=== PATIENT | female | born 2000 | race American Indian/Alaskan Native ===

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

== ENCOUNTER 2022-06-11 08:08 | Emergency (ER) | payer MEDICAID, SELFPAY ==
[2022-06-11 08:43] VITALS: BP 118/88; PULSE 103; RESP 18; TEMP 36.3; O2SAT 95; BMI 24.5
--- NOTE | 2022-06-11 09:07 | ED_ITS ---
HPI - Abdominal Pain General Chief Complaint: Abdominal Pain Stated Complaint: Vomiting/Gastritis Time Seen by Provider: 06/11/22 09:02 Source: patient and family Mode of arrival: ambulatory Limitations: no limitations History of Present Illness HPI narrative: 21-year-old female with a history of intermittent abdominal pain for many months presents to the ER with 2 days of upper abdominal pain and vomiting. No diarrhea, fevers, constipation, urinary symptoms. Last BM was yesterday. Patient reports she has been previously diagnosed with gastritis. Has taken a PPI and Carafate for brief time but then her symptoms improve so she stopped taking the medication. Related Data Previous Rx's Medication Instructions Recorded ondansetron HCl 4 mg tablet 4 mg PO Q8H PRN nausea and 10/31/20 (Zofran) vomiting #14 tabs omeprazole 40 mg capsule,delayed 40 mg PO DAILY #14 caps 04/18/21 release sucralfate 1 gram tablet 1 g PO TID #20 tabs 04/18/21 omeprazole 40 mg capsule,delayed 40 mg PO DAILY #30 caps 09/07/21 release sucralfate 1 gram tablet 1 g PO TID #90 tabs 09/07/21 omeprazole 40 mg capsule,delayed 40 mg PO DAILY #30 caps 06/11/22 release sucralfate 1 gram tablet (Carafate) 1 g PO AC #90 tabs 06/11/22 Allergies Allergy/AdvReac Type Severity Reaction Status Date / Time No Known Allergies Allergy Unverified 01/15/20 19:26 [No Known Allergies*] Review of Systems Review of Systems Yes all other systems are reviewed and are negative Constitutional: Reports no additional constitutional complaints, Denies body ache(s), Denies chills, Denies fever(s), Denies headache(s) and Denies weakness Eyes: Reports no additional eye complaints and Denies change in vision Reports system reviewed and no additional complaints, except as documented, Denies dizziness, Denies headache(s), Denies nasal congestion, Denies nasal discharge and Denies neck pain Cardiovascular: Reports no additional cardiovascular complaints, Denies chest pain, Denies leg edema and Denies dyspnea Respiratory: Reports no additional respiratory complaints, Denies cough and Denies dyspnea Gastrointestinal: Reports no additional gastrointestinal complaints, Reports abdominal pain, Denies diarrhea, Reports nausea and Reports vomiting Genitourinary: Reports no additional female genitourinary complaints and Denies urinary incontinence Musculoskeletal: Reports no additional musculoskeletal complaints, Denies back pain, Denies arthralgias, Denies joint swelling, Denies neck pain, Denies numbness and Denies tingling Skin/Breast: Reports system reviewed and no additional complaints, except as docu and Denies rash Reports system reviewed and no additional complaints, except as documented, Denies dizziness, Denies headache(s), Denies numbness, Denies tingling and Denies weakness PMFSH Past Medical History Attestation statement: The following information was validated with the patient. Source: old records reviewed and nursing notes reviewed Medical History No known health problems Social History Social History Alcohol intake: never Patient Tobacco Use Status: Tobacco use Unknown Smoked in Last 30 Days: No Use of substances other than those prescribed or required for medical reasons: Yes Substance Use Type: Marijuana Advance Directives: No Advance Directives Information Provided: No Physical Exam ED Vital Signs: Vital Signs - 24 hr 06/11/22 08:43 06/11/22 10:30 06/11/22 11:33 Temperature 97.4 F 97.5 F 98.0 F Pulse Rate 103 H 77 86 Respiratory Rate 18 14 16 Blood Pressure 118/88 108/47 L 115/76 Pulse Oximetry 95 100 Oxygen Delivery Method Room Air Room Air Room Air BMI result Body Mass Index 24.5 Const Other: in pain General: alert Orientation/consciousness: patient oriented x3 Limitations: no limitations [facility] Head: Yes normal to inspection Ears: hearing grossly normal bilaterally Eyes General: appearance normal, both eyes and all related structures Pupils: Equal, round and reactive pupils present Neck Neck: Yes normal visual inspection and Yes full ROM Chest Chest palpation & inspection: normal inspection of the chest Resp Effort & Inspection: normal respiratory effort Auscultation: clear to auscultation bilaterally GI Inspection: Yes normal to inspection Palpation (GI): Soft to palpation and Tenderness to palpation present (GI) in the epigastrum Auscultation: normal bowel sounds General: Yes no CVA tenderness Back/Spine/Pelvis Back: no CVA tenderness Thoracic/Lumbar Spine: thoracic and lumbar spine normal to inspection Skin General skin exam: no rashes or lesions noted Neuro General: patient oriented x3 and moves all extremities Cranial nerves: Yes Equal, round and reactive pupils present Cognition (Neuro): normal cognition Gait exam (Neuro): Normal gait present Extrem General: Yes normal to inspection Course Course Course Narrative: labs and UA are unremarkable. Patient is no longer vomiting and is tolerating sips of water. Has mild discomfort still in the epigastric area. Will give GI cocktail and reassess Reevaluation(s) Reevaluation #1: 1200- patient feeling improved. Tolerating p.o.. Likely gastritis consider PUD. Patient should follow-up with a tie tape machine operator. Recommended restarting carafate and PPI. Reviewed worrisome signs and symptoms of when to return to the emergency room. Comfortable plan for discharge home. Medical Decision Making Medical Decision Making [facility] Narrative: 21-year-old female here with intermittent upper abdominal pain for many months worsened over the last 2 days with vomiting. On exam patient with epigastric tenderness with no rebound or guarding. Patient is vomiting. Patient with previous diagnosis of gastritis but no longer taking her Carafate and PPI will obtain labs, UA, give IV fluids, analgesia, antiemetic Differential Diagnosis Differential Diagnoses: The differential diagnosis associated with the presentation includes gastritis, gastric ulcer, low concern for appendicitis Lab Data [facility] Lab Attestation statement: I reviewed the patient's lab results. 06/11/22 09:22 06/11/22 09:22 Labs: Lab Results 06/11/22 06/11/22 06/11/22 Range/Units 09:17 09:17 09:22 WBC 9.2 (4.8-10.8) X10*3/uL RBC 5.15 (4.20-5.50) X10*6/uL Hgb 14.2 (12.0-16.0) g/dl Hct 41.3 (37.0-47.0) % MCV 80.2 (80.0-98.0) fL MCH 27.6 (27.0-33.0) pg MCHC 34.4 (31.0-35.0) g/dl RDW 13.0 (11.0-16.0) % Plt Count 262 (160-400) X10*3/uL MPV 11.4 (9.4-12.3) fL Immature Gran % (Auto) Cancelled Neut % (Auto) Cancelled Lymph % (Auto) Cancelled [place] % (Auto) Cancelled Eos % (Auto) Cancelled Baso % (Auto) Cancelled Lymph # (Auto) Cancelled [place] # (Auto) Cancelled Eos # (Auto) Cancelled Baso # (Auto) Cancelled Abs Immat Gran (auto) Cancelled Absolute Neuts (auto) Cancelled Absolute Nucleated RBC 0.000 (0.0-0.012) X10*3/uL Nucleated RBC % (auto) 0.0 (0.0-0.2) /100WBC Neutrophils % (Manual) 60 (45-73) % Band Neutrophils % 0 L (3-5) % Lymphocytes % (Manual) 28 (20-40) % Monocytes % (Manual) 12 H (2-11) % Abs Neuts (Manual) 5.5 (2.0-8.3) X10*3/uL Lymphocytes # (Manual) 2.6 (1.2-4.9) X10*3/uL Monocytes # (Manual) 1.1 (0.1-1.2) X10*3/uL Platelet Estimate NORMAL (NORMAL) Plt Morphology Comment NORMAL RBC Morphology NORMAL Sodium (135-145) mmol/L Potassium (3.3-5.1) mmol/L Chloride (96-108) mmol/L Carbon Dioxide (22-29) mmol/L Anion Gap (12-20) BUN (9-16) mg/dL Creatinine (0.5-1.4) mg/dL Estim Creat Clear Calc Estimated GFR Random Glucose (60-115) mg/dL Calcium (8.4-10.2) mg/dL Total Bilirubin (0.0-1.0) mg/dL Direct Bilirubin (0.0-0.5) mg/dL AST (5-31) U/L ALT (0-31) U/L Alkaline Phosphatase (39-117) U/L Total Protein (6.5-8.0) g/dL Albumin (3.5-5.0) g/dL Lipase (8-78) U/L Urine Color Dark Yellow Urine Appearance Cloudy Urine pH 5.5 (5.0-9.0) Ur Specific [place] >= 1.030 H (1.005-1.025) Urine Protein 30 (1+) H (Neg-Trace) mg/dL Urine Glucose (UA) Negative (Negative) mg/dL Urine Ketones Trace (Negative) mg/dL Urine Blood Negative (Negative) Urine Nitrite Negative (Negative) Ur Leukocyte Esterase Trace H (Negative) Urine RBC 0-2 (0-2) /HPF Urine WBC 0-5 (0-5) /HPF Ur Squamous Epith Cells 11-20 (0-2) /HPF Urine Bacteria 3+ (None Seen) Hyaline Casts 3-5 (0-2) /LPF Urine Test NEGATIVE (NEGATIVE) 06/11/22 Range/Units 09:22 WBC (4.8-10.8) X10*3/uL RBC (4.20-5.50) X10*6/uL Hgb (12.0-16.0) g/dl Hct (37.0-47.0) % MCV (80.0-98.0) fL MCH (27.0-33.0) pg MCHC (31.0-35.0) g/dl RDW (11.0-16.0) % Plt Count (160-400) X10*3/uL MPV (9.4-12.3) fL Immature Gran % (Auto) Neut % (Auto) Lymph % (Auto) [place] % (Auto) Eos % (Auto) Baso % (Auto) Lymph # (Auto) [place] # (Auto) Eos # (Auto) Baso # (Auto) Abs Immat Gran (auto) Absolute Neuts (auto) Absolute Nucleated RBC (0.0-0.012) X10*3/uL Nucleated RBC % (auto) (0.0-0.2) /100WBC Neutrophils % (Manual) (45-73) % Band Neutrophils % (3-5) % Lymphocytes % (Manual) (20-40) % Monocytes % (Manual) (2-11) % Abs Neuts (Manual) (2.0-8.3) X10*3/uL Lymphocytes # (Manual) (1.2-4.9) X10*3/uL Monocytes # (Manual) (0.1-1.2) X10*3/uL Platelet Estimate (NORMAL) Plt Morphology Comment RBC Morphology Sodium 138 (135-145) mmol/L Potassium 3.7 (3.3-5.1) mmol/L Chloride 106 (96-108) mmol/L Carbon Dioxide 21 L (22-29) mmol/L Anion Gap 15 (12-20) BUN 9 (9-16) mg/dL Creatinine 0.70 (0.5-1.4) mg/dL Estim Creat Clear Calc 106.6 Estimated GFR > 60 Random Glucose 112 (60-115) mg/dL Calcium 9.5 (8.4-10.2) mg/dL Total Bilirubin 1.4 H (0.0-1.0) mg/dL Direct Bilirubin 0.3 (0.0-0.5) mg/dL AST 13 (5-31) U/L ALT 7 (0-31) U/L Alkaline Phosphatase 60 (39-117) U/L Total Protein 7.3 (6.5-8.0) g/dL Albumin 4.6 (3.5-5.0) g/dL Lipase 15 (8-78) U/L Urine Color Urine Appearance Urine pH (5.0-9.0) Ur Specific [place] (1.005-1.025) Urine Protein (Neg-Trace) mg/dL Urine Glucose (UA) (Negative) mg/dL Urine Ketones (Negative) mg/dL Urine Blood (Negative) Urine Nitrite (Negative) Ur Leukocyte Esterase (Negative) Urine RBC (0-2) /HPF Urine WBC (0-5) /HPF Ur Squamous Epith Cells (0-2) /HPF Urine Bacteria (None Seen) Hyaline Casts (0-2) /LPF Urine Test (NEGATIVE) Independent Historian Clinical information obtained from an independent historian. History obtained from or confirmed by: Parent Medications Administered Discontinued Medications Generic Name Dose Route Start Last Admin Trade Name Freq PRN Reason Stop Dose Admin Al Hydroxide/Mg Hydroxide 30 ml 06/11/22 11:04 06/11/22 11:31 Magnesium Hydrox/Alum Hydrox 30 Ml Oral.Susp PO 06/11/22 11:05 30 ml ONCE ONE Administration Famotidine 20 mg 06/11/22 09:17 06/11/22 09:29 Famotidine/Pf 20 Mg/2 Ml Vial IVPUSH 06/11/22 09:18 20 mg ONCE ONE Administration Sodium Chloride 1,000 mls @ 999 mls/hr 06/11/22 09:17 06/11/22 10:35 Ns IV 06/11/22 10:17 Infused .Q1H1M STA Infusion Lidocaine HCl 15 ml 06/11/22 11:04 06/11/22 11:31 Lidocaine Hcl Viscous 2 % 15 Ml Solution MUCOUS MEM 06/11/22 11:05 15 ml ONCE ONE Administration Morphine Sulfate 4 mg 06/11/22 09:17 06/11/22 09:28 Morphine Sulfate 4 Mg/Ml Cartridge IVPUSH 06/11/22 09:18 4 mg ONCE ONE Administration Protocol Ondansetron HCl 4 mg 06/11/22 09:17 06/11/22 09:28 Ondansetron Hcl 4 Mg/2 Ml Vial IVPUSH 06/11/22 09:18 4 mg ONCE ONE Administration Discharge Plan Discharge Clinical Impression: Gastritis Patient Disposition: Home, Self-Care Instructions: Gastritis (ED), Diet for Stomach Ulcers and Gastritis (ED) Additional Instructions: Follow-up very bland diet. Increase fluids. Called GI to follow-up Return for worsening symptoms Take the medications as prescribed until seen by the tie tape machine operator Prescriptions: New omeprazole 40 mg capsule,delayed release(DR/EC) 40 mg PO DAILY Qty: 30 0RF sucralfate [Carafate] 1 gram tablet 1 g PO AC Qty: 90 0RF No Action ondansetron HCl [Zofran] 4 mg tablet 4 mg PO Q8H PRN (Reason: nausea and vomiting) Qty: 14 0RF omeprazole 40 mg capsule,delayed release(DR/EC) 40 mg PO DAILY Qty: 30 2RF sucralfate 1 gram tablet 1 g PO TID Qty: 90 2RF omeprazole 40 mg capsule,delayed release(DR/EC) 40 mg PO DAILY Qty: 14 0RF sucralfate 1 gram tablet 1 g PO TID Qty: 20 0RF Referrals: Roddy Stewart [Physician] - 10 days [place] [Primary Care Provider] - Stand Alone Forms: Work/School Release
--- NOTE | 2022-06-11 09:11 | PC.NURSE ---
pt AOx3, reports 10/10 abdominal pain. Claims they have had severe abd pain before but never this bad. Sending urine to lab.
[2022-06-11] MEDS: 0.9 % Sodium Chloride 1,000 ML 999 ML IV (09:26)
[2022-06-11 09:28] LABS: Hematocrit 41.3 % (37.0-47.0); Hemoglobin 14.2 g/dl (12.0-16.0); Mean Corpuscular HGB Conc 34.4 g/dl (31.0-35.0); Mean Corpuscular Hemoglobin 27.6 pg (27.0-33.0); Mean Corpuscular Volume 80.2 fL (80.0-98.0); Mean Platelet Volume 11.4 fL (9.4-12.3); Platelet Count 262 X10*3/uL (160-400); Red Blood Count 5.15 X10*6/uL (4.20-5.50)
[2022-06-11] MEDS: Morphine Sulfate 4 MG/ML CARTRIDGE IVPUSH (09:28)
[2022-06-11] MEDS: ondansetron HCL 4 MG/2 ML VIAL IVPUSH (09:28)
[2022-06-11 09:29] LABS: Appearance Urine Cloudy; Color Urine Dark Yellow; Glucose Urine UA Negative (Negative); Leukocyte Esterase Urine Trace (Negative); Nitrite Urine Negative (Negative); PH 5.5 (5.0-9.0); Specific Gravity - Urine >= 1.030 (1.005-1.025); UMIC TRIGGER UACC YES; Urine Blood Negative (Negative); Urine Ketones Trace mg/dL (Negative); Urine Protein 30 (1+) mg/dL (Neg-Trace)
[2022-06-11] MEDS: Famotidine/PF 20 MG/2 ML VIAL IVPUSH (09:29)
[2022-06-11 09:30] LABS: UPreg QC Valid YES; Urine Pregnancy NEGATIVE (NEGATIVE)
[2022-06-11 09:34] LABS: Bacteria Urine 3+ (None Seen); RBC Urine 0-2 /HPF (0-2); WBC Urine 0-5 /HPF (0-5)
--- NOTE | 2022-06-11 09:35 | PC.NURSE ---
labs drawn , iv inserted. Medications back feeder plywood layup line per order. quality assurance monitor body on. Patient resting. will continue to monitor.
[2022-06-11 09:38] LABS: WBC ABN SCTR FOR CBC 1
[2022-06-11 09:42] LABS: Alanine Aminotransferase 7 U/L (0-31); Anion Gap 15 (12-20); Aspartate Amino Transferase 13 U/L (5-31); Bilirubin Direct 0.3 mg/dL (0.0-0.5); Bilirubin Total 1.4 mg/dL (0.0-1.0); Blood Urea Nitrogen 9 mg/dL (9-16); Calcium 9.5 mg/dL (8.4-10.2); Carbon Dioxide 21 mmol/L (22-29); Chloride 106 mmol/L (96-108); Creatinine Clr Calc Pharmacy 106.6; Estimated Glomerular Filt Rate > 60; Glucose Random 112 mg/dL (60-115); Potassium 3.7 mmol/L (3.3-5.1); Sodium 138 mmol/L (135-145)
[2022-06-11 09:43] LABS: Albumin Level 4.6 g/dL (3.5-5.0); Alkaline Phosphatase 60 U/L (39-117); Lipase 15 U/L (8-78); Total Protein 7.3 g/dL (6.5-8.0)
[2022-06-11 09:47] LABS: Band Neutrophils Percent 0 % (3-5); Lymphocytes Percent Manual 28 % (20-40); Monocytes Percent Manual 12 % (2-11); Neutrophils Percent Manual 60 % (45-73)
[2022-06-11 09:48] LABS: Lymphocytes Absolute Manual 2.6 X10*3/uL (1.2-4.9); Monocytes Absolute Manual 1.1 X10*3/uL (0.1-1.2); Neutrophils Absolute Manual 5.5 X10*3/uL (2.0-8.3); Platelet Estimate NORMAL (NORMAL); RBC Morphology NORMAL; White Blood Count 9.2 X10*3/uL (4.8-10.8)
[2022-06-11 09:49] LABS: Platelet Morphology Comment NORMAL
[2022-06-11 10:30] VITALS: BP 108/47; PULSE 77; RESP 14; TEMP 36.4; O2SAT 100
--- NOTE | 2022-06-11 10:38 | PC.NURSE ---
patient resting quietly, pain reduced to 3/10. VSS. Fluids ended. Nausea also significantly lessened. Pt having small sips of water per EXTRUDER OPERATOR MULTIPLE.
[2022-06-11] MEDS: Magnesium Hydrox/Alum Hydrox 30 ML ORAL.SUSP PO (11:31)
[2022-06-11] MEDS: Lidocaine HCl Viscous 2 % 15 ML SOLUTION MUCOUS MEM (11:31)
[2022-06-11 11:33] VITALS: BP 115/76; PULSE 86; RESP 16; TEMP 36.7
--- NOTE | 2022-06-11 11:34 | PC.NURSE ---
patient a&ox3, c/o 07/07 abd pain, hydrological technical officer nsr 70-80s, vss, pt medicated per order, call ramesh within reach, will continue to monitor.
== END 2022-06-11 12:15 | disposition home or self-care (01) ==
PROVIDERS: Nurse Practitioner Family; Emergency Provider Emergency Medicine Emergency Medical Services
DX: K29.00 Acute gastritis without bleeding (principal); R10.2 Pelvic and perineal pain; Z79.899 Other long term (current) drug therapy
CPT/HCPCS: 36415; 80048; 80076; 81001; 81025; 83690; 85007; 85027; 96361; 96374; 96375; 99284; 99285; J2270; J2405

== ENCOUNTER 2022-06-15 10:20 | Emergency (ER) | payer MEDICAID, SELFPAY ==
[2022-06-15 10:23] VITALS: BP 133/75; PULSE 100; RESP 18; TEMP 36.6; O2SAT 99; BMI 24.5
[2022-06-15 10:46] LABS: MANUAL DIFF FLAG NO
[2022-06-15 10:51] LABS: Basophils Percent Auto 0.3 % (0-2); Eosinophils Absolute Auto 0.1 X10*3/uL (0.0-0.4); Eosinophils Percent Auto 0.8 % (0-4); Hematocrit 43.2 % (37.0-47.0); Hemoglobin 14.2 g/dl (12.0-16.0); Imm Gran Abs Auto 0.03 X10*3/uL (0.00-0.03); Imm Gran Pct Auto 0.3 % (0.0-0.4); Lymphocytes Absolute Auto 0.9 X10*3/uL (1.2-4.9); Lymphocytes Percent Auto 10.5 % (20-40); Mean Corpuscular HGB Conc 32.9 g/dl (31.0-35.0); Mean Corpuscular Hemoglobin 27.5 pg (27.0-33.0); Mean Corpuscular Volume 83.6 fL (80.0-98.0); Mean Platelet Volume 11.7 fL (9.4-12.3); Monocytes Absolute Auto 0.5 X10*3/uL (0.1-1.2); Monocytes Percent Auto 5.6 % (2-11); Neutrophils Absolute Auto 7.2 x10*3/uL (2.0-8.3); Neutrophils Percent Auto 82.5 % (45-73); Platelet Count 258 X10*3/uL (160-400); Red Blood Count 5.17 X10*6/uL (4.20-5.50); Red Cell Distribution Width 12.9 % (11.0-16.0); White Blood Count 8.7 X10*3/uL (4.8-10.8)
[2022-06-15 10:55] LABS: Appearance Urine Clear; Color Urine Yellow; Glucose Urine UA Negative (Negative); Leukocyte Esterase Urine Trace (Negative); Nitrite Urine Negative (Negative); PH 8.5 (5.0-9.0); UMIC TRIGGER UACC YES; Urine Blood Large (3+) (Negative); Urine Ketones Negative (Negative); Urine Protein 30 (1+) mg/dL (Neg-Trace)
[2022-06-15 10:56] LABS: UPreg QC Valid YES; Urine Pregnancy NEGATIVE (NEGATIVE)
[2022-06-15 11:03] LABS: Bacteria Urine None Seen (None Seen); Hyaline Casts Urine 0-2 /LPF (0-2); RBC Urine 0-2 /HPF (0-2); Squamous Epithelial Cell Urine 0-2 /HPF (0-2); WBC Urine 0-5 /HPF (0-5)
[2022-06-15 11:20] LABS: Alanine Aminotransferase 9 U/L (0-31); Albumin Level 4.4 g/dL (3.5-5.0); Alkaline Phosphatase 62 U/L (39-117); Anion Gap 14 (12-20); Aspartate Amino Transferase 17 U/L (5-31); Bilirubin Direct 0.4 mg/dL (0.0-0.5); Bilirubin Total 1.5 mg/dL (0.0-1.0); Blood Urea Nitrogen 7 mg/dL (9-16); Calcium 9.3 mg/dL (8.4-10.2); Carbon Dioxide 23 mmol/L (22-29); Chloride 107 mmol/L (96-108); Creatinine Clr Calc Pharmacy 111.4; Estimated Glomerular Filt Rate > 60; Glucose Random 101 mg/dL (60-115); Lipase 62 U/L (8-78); Potassium 4.6 mmol/L (3.3-5.1); Sodium 139 mmol/L (135-145); Total Protein 7.2 g/dL (6.5-8.0)
--- NOTE | 2022-06-15 16:22 | ED.GENADULT ---
HPI - General Adult General Chief complaint: Abdominal Pain Stated complaint: stomach issues Time Seen by Provider: 06/15/22 16:22 Source: patient Mode of arrival: ambulatory Limitations: no limitations History of Present Illness HPI narrative: Patient has a history of gastritis after dinner last night fried pork chop, rice and beans, her stomach has been hurting her. Patient with vomiting and diarrhea. LMP currently. Patient has been sick since 5 am. Patient was here last week for the same. Patient does smoke marijuana Onset (ago): hour(s) Severity: moderate Quality: burning Pain Consistency: constant Exacerbating factors: eating Related Data Previous Rx's Medication Instructions Recorded ondansetron HCl 4 mg tablet 4 mg PO Q8H PRN nausea and 10/31/20 (Zofran) vomiting #14 tabs omeprazole 40 mg capsule,delayed 40 mg PO DAILY #14 caps 04/18/21 release sucralfate 1 gram tablet 1 g PO TID #20 tabs 04/18/21 omeprazole 40 mg capsule,delayed 40 mg PO DAILY #30 caps 09/07/21 release sucralfate 1 gram tablet 1 g PO TID #90 tabs 09/07/21 omeprazole 40 mg capsule,delayed 40 mg PO DAILY #30 caps 06/11/22 release sucralfate 1 gram tablet (Carafate) 1 g PO AC #90 tabs 06/11/22 ondansetron 4 mg disintegrating 4 mg PO Q8H 4 days #12 tabs 06/15/22 tablet Allergies Allergy/AdvReac Type Severity Reaction Status Date / Time No Known Allergies Allergy Verified 06/15/22 11:21 [No Known Allergies*] Review of Systems Review of Systems: Yes all other systems are reviewed and are negative Gastrointestinal: Gastrointestinal: Reports diarrhea and Reports vomiting PMFSH Past Medical History Medical History No known health problems Social History Social History Alcohol intake: never Patient Tobacco Use Status: Tobacco use Unknown Substance Use Type: Marijuana Advance Directives: No Physical Exam ED Vital Signs: Vital Signs - 24 hr 06/15/22 10:23 Temperature 98 F Pulse Rate 100 Respiratory Rate 18 Blood Pressure 133/75 Pulse Oximetry 99 Oxygen Delivery Method Room Air BMI result Body Mass Index 24.5 Const General: healthy appearing Nutritional Appearance: average body habitus Orientation/consciousness: oriented to person and patient oriented x3 Limitations: no limitations HENMT Head: Yes normal to inspection Ears: external ears normal General nose exam: Normal external nose present Mouth: Normal oral and palatal mucosa present and oropharynx normal Throat: Yes posterior oropharynx normal Eyes General: appearance normal, both eyes and all related structures Neck Neck: Yes normal visual inspection Chest Chest palpation & inspection: normal inspection of the chest Resp Auscultation: clear to auscultation bilaterally Cardio Jugular venous distension: no JVD Rate: regular rate Rhythm: regular rhythm Heart sounds: S1 normal heart sound present and S2 normal heart sound present GI Inspection: Yes normal to inspection Palpation (GI): Soft to palpation, nontender and No hepatosplenomegaly present Auscultation: normal bowel sounds General: Yes no CVA tenderness Back/Spine/Pelvis Back: no CVA tenderness Skin General skin exam: no rashes or lesions noted Neuro General: oriented to person and patient oriented x3 Cranial nerves: Yes CN's II-XII intact bilaterally Motor exam (neuro): 5/5 motor strength present throughout Extrem General: Yes normal to inspection Psych Appearance: grossly normal Course Reevaluation(s) Reevaluation #1: patient feeling better after medications will dc home Time: 17:37 Medications Administered Discontinued Medications Generic Name Dose Route Start Last Admin Trade Name Freq PRN Reason Stop Dose Admin Al Hydroxide/Mg Hydroxide 30 ml 06/15/22 16:33 06/15/22 16:51 Magnesium Hydrox/Alum Hydrox 30 Ml Oral.Susp PO 06/15/22 16:34 30 ml ONCE ONE Administration Belladonna Alkaloids/Phenobarbital 10 ml 06/15/22 16:33 06/15/22 16:51 Phenobarb/Hyoscy/Atropine/Scop 10 Ml Elixir PO 06/15/22 16:34 10 ml ONCE ONE Administration Lidocaine HCl 15 ml 06/15/22 16:33 06/15/22 16:51 Lidocaine Hcl Viscous 2 % 15 Ml Solution MUCOUS MEM 06/15/22 16:34 15 ml ONCE ONE Administration Ondansetron HCl 4 mg 06/15/22 16:33 06/15/22 16:51 Ondansetron Odt 4 Mg Tab.Rapdis TRANSLINGU 06/15/22 16:34 4 mg ONCE ONE Administration Medical Decision Making Differential Diagnosis gastritis, ulcer, cyclical vomiting, pancreatitis, hepatitis Lab Data MDM Lab Attestation statement: I reviewed the patient's lab results. 06/15/22 10:42 06/15/22 10:42 Labs: Lab Results 06/15/22 06/15/22 06/15/22 Range/Units 10:42 10:42 10:42 WBC 8.7 (4.8-10.8) X10*3/uL RBC 5.17 (4.20-5.50) X10*6/uL Hgb 14.2 (12.0-16.0) g/dl Hct 43.2 (37.0-47.0) % MCV 83.6 (80.0-98.0) fL MCH 27.5 (27.0-33.0) pg MCHC 32.9 (31.0-35.0) g/dl RDW 12.9 (11.0-16.0) % Plt Count 258 (160-400) X10*3/uL MPV 11.7 (9.4-12.3) fL Immature Gran % (Auto) 0.3 (0.0-0.4) % Neut % (Auto) 82.5 H (45-73) % Lymph % (Auto) 10.5 L (20-40) % [place] % (Auto) 5.6 (2-11) % Eos % (Auto) 0.8 (0-4) % Baso % (Auto) 0.3 (0-2) % Lymph # (Auto) 0.9 L (1.2-4.9) X10*3/uL [place] # (Auto) 0.5 (0.1-1.2) X10*3/uL Eos # (Auto) 0.1 (0.0-0.4) X10*3/uL Baso # (Auto) 0.0 (0.0-0.2) X10*3/uL Abs Immat Gran (auto) 0.03 (0.00-0.03) X10*3/uL Absolute Neuts (auto) 7.2 (2.0-8.3) x10*3/uL Absolute Nucleated RBC 0.000 (0.0-0.012) X10*3/uL Nucleated RBC % (auto) 0.0 (0.0-0.2) /100WBC Sodium 139 (135-145) mmol/L Potassium 4.6 D (3.3-5.1) mmol/L Chloride 107 (96-108) mmol/L Carbon Dioxide 23 (22-29) mmol/L Anion Gap 14 (12-20) BUN 7 L (9-16) mg/dL Creatinine 0.67 (0.5-1.4) mg/dL Estim Creat Clear Calc 111.4 Estimated GFR > 60 Random Glucose 101 (60-115) mg/dL Calcium 9.3 (8.4-10.2) mg/dL Total Bilirubin 1.5 H (0.0-1.0) mg/dL Direct Bilirubin 0.4 (0.0-0.5) mg/dL AST 17 (5-31) U/L ALT 9 (0-31) U/L Alkaline Phosphatase 62 (39-117) U/L Total Protein 7.2 (6.5-8.0) g/dL Albumin 4.4 (3.5-5.0) g/dL Lipase 62 (8-78) U/L Urine Color Yellow Urine Appearance Clear Urine pH 8.5 (5.0-9.0) Ur Specific [place] 1.020 (1.005-1.025) Urine Protein 30 (1+) H (Neg-Trace) mg/dL Urine Glucose (UA) Negative (Negative) mg/dL Urine Ketones Negative (Negative) mg/dL Urine Blood Large (3+) H (Negative) Urine Nitrite Negative (Negative) Ur Leukocyte Esterase Trace H (Negative) Urine RBC 0-2 (0-2) /HPF Urine WBC 0-5 (0-5) /HPF Ur Squamous Epith Cells 0-2 (0-2) /HPF Urine Bacteria None Seen (None Seen) Hyaline Casts 0-2 (0-2) /LPF Urine Test (NEGATIVE) 06/15/22 Range/Units 10:42 WBC (4.8-10.8) X10*3/uL RBC (4.20-5.50) X10*6/uL Hgb (12.0-16.0) g/dl Hct (37.0-47.0) % MCV (80.0-98.0) fL MCH (27.0-33.0) pg MCHC (31.0-35.0) g/dl RDW (11.0-16.0) % Plt Count (160-400) X10*3/uL MPV (9.4-12.3) fL Immature Gran % (Auto) (0.0-0.4) % Neut % (Auto) (45-73) % Lymph % (Auto) (20-40) % [place] % (Auto) (2-11) % Eos % (Auto) (0-4) % Baso % (Auto) (0-2) % Lymph # (Auto) (1.2-4.9) X10*3/uL [place] # (Auto) (0.1-1.2) X10*3/uL Eos # (Auto) (0.0-0.4) X10*3/uL Baso # (Auto) (0.0-0.2) X10*3/uL Abs Immat Gran (auto) (0.00-0.03) X10*3/uL Absolute Neuts (auto) (2.0-8.3) x10*3/uL Absolute Nucleated RBC (0.0-0.012) X10*3/uL Nucleated RBC % (auto) (0.0-0.2) /100WBC Sodium (135-145) mmol/L Potassium (3.3-5.1) mmol/L Chloride (96-108) mmol/L Carbon Dioxide (22-29) mmol/L Anion Gap (12-20) BUN (9-16) mg/dL Creatinine (0.5-1.4) mg/dL Estim Creat Clear Calc Estimated GFR Random Glucose (60-115) mg/dL Calcium (8.4-10.2) mg/dL Total Bilirubin (0.0-1.0) mg/dL Direct Bilirubin (0.0-0.5) mg/dL AST (5-31) U/L ALT (0-31) U/L Alkaline Phosphatase (39-117) U/L Total Protein (6.5-8.0) g/dL Albumin (3.5-5.0) g/dL Lipase (8-78) U/L Urine Color Urine Appearance Urine pH (5.0-9.0) Ur Specific [place] (1.005-1.025) Urine Protein (Neg-Trace) mg/dL Urine Glucose (UA) (Negative) mg/dL Urine Ketones (Negative) mg/dL Urine Blood (Negative) Urine Nitrite (Negative) Ur Leukocyte Esterase (Negative) Urine RBC (0-2) /HPF Urine WBC (0-5) /HPF Ur Squamous Epith Cells (0-2) /HPF Urine Bacteria (None Seen) Hyaline Casts (0-2) /LPF Urine Test NEGATIVE (NEGATIVE) Independent Historian Clinical information obtained from an independent historian. History obtained from or confirmed by: Parent Tests considered The following testing was considered but not selected: CT considered but abdomen soft, labs normal Discharge Plan Discharge Clinical Impression: Gastritis, Cyclical vomiting Patient Disposition: Home, Self-Care Instructions: Acute Nausea and Vomiting (ED), Cyclic Vomiting Syndrome (ED) Prescriptions: New ondansetron 4 mg tablet,disintegrating 4 mg PO Q8H 4 Days Qty: 12 0RF No Action ondansetron HCl [Zofran] 4 mg tablet 4 mg PO Q8H PRN (Reason: nausea and vomiting) Qty: 14 0RF omeprazole 40 mg capsule,delayed release(DR/EC) 40 mg PO DAILY Qty: 30 2RF sucralfate 1 gram tablet 1 g PO TID Qty: 90 2RF omeprazole 40 mg capsule,delayed release(DR/EC) 40 mg PO DAILY Qty: 14 0RF sucralfate 1 gram tablet 1 g PO TID Qty: 20 0RF omeprazole 40 mg capsule,delayed release(DR/EC) 40 mg PO DAILY Qty: 30 0RF sucralfate [Carafate] 1 gram tablet 1 g PO AC Qty: 90 0RF Referrals: [facility] [Primary Care Provider] - 1 week
[2022-06-15] MEDS: Magnesium Hydrox/Alum Hydrox 30 ML ORAL.SUSP PO (16:51)
[2022-06-15] MEDS: Lidocaine HCl Viscous 2 % 15 ML SOLUTION MUCOUS MEM (16:51)
[2022-06-15] MEDS: Ondansetron ODT 4 MG TAB.RAPDIS TRANSLINGU (16:51)
[2022-06-15] MEDS: PHENobarb/Hyoscy/Atropine/Scop 10 ML ELIXIR PO (16:51)
== END 2022-06-15 17:52 | disposition home or self-care (01) ==
PROVIDERS: Emergency Provider Emergency Medicine
DX: K29.70 Gastritis, unspecified, without bleeding (principal); R11.15 Cyclical vomiting syndrome unrelated to migraine; Z79.899 Other long term (current) drug therapy
CPT/HCPCS: 36415; 80048; 80076; 81001; 81025; 83690; 85025; 99283

== ENCOUNTER 2022-12-29 17:35 | Outpatient (REF) | payer MEDICAID, SELFPAY ==
[2022-12-30 07:24] LABS: CT PCR NOT DETECTED (Not Detect.); NG PCR NOT DETECTED (Not Detect.)
[2022-12-30 14:15] LABS: BV Int Neg Control Negative (Negative); BV Int Pos Control Positive (Positive)
== END 2022-12-29 17:36 | disposition home or self-care (01) ==
LOC: HO.LNP 17:35
PROVIDERS: Visit Provider Registered Nurse
DX: R10.2 Pelvic and perineal pain (principal); R30.9 Painful micturition, unspecified
CPT/HCPCS: 0353U; 87086; 87480; 87510; 87660

== ENCOUNTER 2023-03-05 18:16 | Emergency (ER) | payer MEDICAID, SELFPAY ==
[2023-03-05 18:51] VITALS: BP 104/64; PULSE 80; RESP 16; TEMP 37.4; O2SAT 98; BMI 24.6
--- NOTE | 2023-03-05 18:54 | ED_ITS ---
[facility] - General Adult General Chief complaint: Fever Stated complaint: headache, bodyaches Time Seen by Provider: 03/05/23 20:04 Source: patient Mode of arrival: ambulatory History of Present Illness HPI narrative: 22-year-old female with significant sore throat, subjective fevers and chills since Sunday. Related Data Previous Rx's Medication Instructions Recorded ondansetron HCl 4 mg tablet 4 mg PO Q8H PRN nausea and 10/31/20 (Zofran) vomiting #14 tabs omeprazole 40 mg capsule,delayed 40 mg PO DAILY #14 caps 04/18/21 release sucralfate 1 gram tablet 1 g PO TID #20 tabs 04/18/21 omeprazole 40 mg capsule,delayed 40 mg PO DAILY #30 caps 09/07/21 release sucralfate 1 gram tablet 1 g PO TID #90 tabs 09/07/21 omeprazole 40 mg capsule,delayed 40 mg PO DAILY #30 caps 06/11/22 release sucralfate 1 gram tablet (Carafate) 1 g PO AC #90 tabs 06/11/22 ondansetron 4 mg disintegrating 4 mg PO Q8H 4 days #12 tabs 06/15/22 tablet amoxicillin 875 mg-potassium 1 tab PO BID 10 days #20 tabs 03/05/23 clavulanate 125 mg tablet Allergies Allergy/AdvReac Type Severity Reaction Status Date / Time No Known Allergies Allergy Verified 06/15/22 11:21 [No Known Allergies*] Review of Systems Review of Systems: Pertinent positives and negatives as stated in [facility] Past Medical History Source: nursing notes reviewed Medical History No known health problems Social History Social History Alcohol intake: never Patient Tobacco Use Status: Tobacco use Unknown Smoked in Last 30 Days: No Use of substances other than those prescribed or required for medical reasons: No Substance Use Type: Marijuana Advance Directives: No Advance Directives Information Provided: No Patient : No Physical Exam ED Vital Signs: Vital Signs - 24 hr 03/05/23 18:51 03/05/23 19:34 Temperature 99.3 F 98.2 F Pulse Rate 80 86 Respiratory Rate 16 16 Blood Pressure 104/64 125/65 Pulse Oximetry 98 99 Oxygen Delivery Method Room Air Room Air BMI result Body Mass Index 24.6 VITAL SIGNS: Reviewed. GENERAL: Well developed, well nourished, in no acute distress. HEAD: Normocephalic/atraumatic EYES: PERRLA, EOMI EARS: Ext canals without abnormality, TMs non-bulging and non-erythematous NOSE: Nares patent bilateral OROPHARYNX: no oral lesions noted, posterior pharynx clear but erythematous with noted tonsillar enlargement/erythema and trace exudate NECK: Supple, no adenopathy LUNGS: Normal breath sounds. No adventitious sounds or accessory muscle use. SpO2<99> CARDIOVASCULAR: Regular rate and rhythm without noted murmurs ABDOMEN: Soft, non-tender, non-distended with bowel sounds. MUSCULOSKELETAL: No tenderness, deformities, or effusions noted on gross inspection. EXTREMITIES: No cyanosis, clubbing or edema. SKIN: Inspection of the skin reveals no rashes NEUROLOGIC: Alert and oriented x 4. Strength and sensation to light touch were grossly intact x 4. Course Course Course Narrative: RME- 22 year old female presents for evaluation of body aches, headaches, cough and subjective fevers. Plan for viral swabs Medications Administered Discontinued Medications Generic Name Dose Route Start Last Admin Trade Name Freq PRN Reason Stop Dose Admin Acetaminophen 975 mg 03/05/23 21:48 03/05/23 21:58 Acetaminophen 325 Mg Tablet PO 03/05/23 21:49 975 mg ONCE ONE Administration Amoxicillin/Clavulanate Potassium 875 mg 03/05/23 21:48 03/05/23 21:58 Amoxicillin/Potassium Clav 875 Mg Tablet PO 03/05/23 21:49 875 mg ONCE ONE Administration Ibuprofen 400 mg 03/05/23 21:48 03/05/23 21:58 Ibuprofen 400 Mg Tablet PO 03/05/23 21:49 400 mg ONCE ONE Administration Medical Decision Making Medical Decision Making MDM Narrative: 22-year-old female with history and clinical presentation, DDX: Viral illness, strep pharyngitis I reviewed all investigations and viral testing is negative for positivity of COVID-19 or influenza, rapid strep is positive, patient received combination analgesics as well as initial antibiotics and was discharged with remaining course. Differential Diagnosis Differential Diagnoses: The differential diagnosis associated with the presentation includes Please see the discussion above Admission/Observation Consideration of admission/observation: Escalation of care including admission/observation considered Please see the discussion above Lab Data MDM Lab Attestation statement: I reviewed the patient's lab results. Please see the discussion above Labs: Lab Results 03/05/23 03/05/23 03/05/23 Range/Units 19:29 19:34 21:07 COVID-19 (SHERLYN) Negative (Negative) COVID-19 Clin Com See Note Influenza Type A (FIORELLA) Negative (Negative) Influenza Type B (FIORELLA) Negative (Negative) Influenza A & B Note See Note S. pyogenes GrpA FIORELLA Positive A (Negative) Discharge Plan Discharge Clinical Impression: Strep pharyngitis Patient Disposition: Home, Self-Care Instructions: Strep Throat (ED) Additional Instructions: 1. Recommend [id number]-[id number] Tylenol/ibuprofen as needed for pain control. 2. Complete the entire course of antibiotics as ordered. 3. Return to the ER for any worsening symptoms. Prescriptions: New amoxicillin-pot clavulanate 875-125 mg tablet 1 tab PO BID 10 Days Qty: 20 0RF No Action ondansetron HCl [Zofran] 4 mg tablet 4 mg PO Q8H PRN (Reason: nausea and vomiting) Qty: 14 0RF omeprazole 40 mg capsule,delayed release(DR/EC) 40 mg PO DAILY Qty: 30 2RF sucralfate 1 gram tablet 1 g PO TID Qty: 90 2RF ondansetron 4 mg tablet,disintegrating 4 mg PO Q8H 4 Days Qty: 12 0RF omeprazole 40 mg capsule,delayed release(DR/EC) 40 mg PO DAILY Qty: 14 0RF sucralfate 1 gram tablet 1 g PO TID Qty: 20 0RF omeprazole 40 mg capsule,delayed release(DR/EC) 40 mg PO DAILY Qty: 30 0RF sucralfate [Carafate] 1 gram tablet 1 g PO AC Qty: 90 0RF Referrals: [facility] [Primary Care Provider] - Stand Alone Forms: Work/School Release Interventions: ED Discharge Assessment Last Done: 03/05/23 22:02 Discharge Date/Time: 03/05/23 22:02
[2023-03-05 19:34] VITALS: BP 125/65; PULSE 86; RESP 16; TEMP 36.8; O2SAT 99
--- NOTE | 2023-03-05 19:40 | PC.NURSE ---
vss and up to date at this time. pt comes in today d/t sore upper respiratory sx that have been constant for the past few days/almost week. pt verbalizing sore throat/fever/chills/nausea at this time. pt currently afebrile during assessment. lung sounds clear throughout upon auscultation. swabs obtained and sent to lab. partner bedside.
[2023-03-05 19:54] LABS: COVID-19 Test Negative (Negative); IDNOW Serial# 08D9AD1C
[2023-03-05 19:55] LABS: IDNOW Serial# 9DB6401D; Influenza A Negative (Negative); Influenza B2 Negative (Negative)
--- NOTE | 2023-03-05 21:09 | PC.NURSE ---
pt speaking w/ provider at this time. pt aware of plan of care at this time. swabs obtained and sent to lab.
[2023-03-05 21:19] LABS: IDNOW Serial# 08D9AD1C; Strep A Nucleic Acid Positive (Negative)
[2023-03-05] MEDS: Amoxicillin/Potassium Clav 875 MG TABLET PO (21:58)
[2023-03-05] MEDS: Ibuprofen 400 MG TABLET PO (21:58)
[2023-03-05] MEDS: Acetaminophen 325 MG TABLET 975 MG PO (21:58)
== END 2023-03-05 22:02 | disposition home or self-care (01) ==
PROVIDERS: Physician Assistant; Emergency Provider Student in an Organized Health Care Education/Training Program
DX: J02.0 Streptococcal pharyngitis (principal); R50.9 Fever, unspecified; R51.9 Headache, unspecified; M79.10 Myalgia, unspecified site; Z11.52 Encounter for screening for COVID-19; Z20.822 Contact with and (suspected) exposure to COVID-19; Z79.899 Other long term (current) drug therapy
CPT/HCPCS: 87502; 87635; 87651; 99283; 99284

== ENCOUNTER 2023-06-30 06:10 | Emergency (ER) | payer MEDICARE, MEDICAID, SELFPAY ==
[2023-06-30 06:12] VITALS: BP 132/108; PULSE 98; RESP 24; TEMP 36.5; O2SAT 99; BMI 23.4
[2023-06-30 06:27] LABS: MANUAL DIFF FLAG NO
--- NOTE | 2023-06-30 06:38 | PC.NURSE ---
iv placed #20g in RAC. labs sent. visitor at bedside
[2023-06-30 06:39] LABS: Basophils Absolute Auto 0.1 X10*3/uL (0.0-0.2); Basophils Percent Auto 0.4 % (0-2); Eosinophils Percent Auto 0.1 % (0-4); Hematocrit 41.3 % (37.0-47.0); Hemoglobin 14.1 g/dl (12.0-16.0); Imm Gran Abs Auto 0.08 X10*3/uL (0.00-0.03); Imm Gran Pct Auto 0.5 % (0.0-0.4); Lymphocytes Percent Auto 12.9 % (20-40); Mean Corpuscular HGB Conc 34.1 g/dl (31.0-35.0); Mean Corpuscular Hemoglobin 26.8 pg (27.0-33.0); Mean Corpuscular Volume 78.5 fL (80.0-98.0); Mean Platelet Volume 10.8 fL (9.4-12.3); Monocytes Absolute Auto 0.4 X10*3/uL (0.1-1.2); Monocytes Percent Auto 2.2 % (2-11); Neutrophils Absolute Auto 13.3 x10*3/uL (2.0-8.3); Neutrophils Percent Auto 83.9 % (45-73); Platelet Count 370 X10*3/uL (160-400); Red Blood Count 5.26 X10*6/uL (4.20-5.50); Red Cell Distribution Width 13.7 % (11.0-16.0); White Blood Count 15.8 X10*3/uL (4.8-10.8)
[2023-06-30 06:43] LABS: Alanine Aminotransferase 10 U/L (0-31); Albumin Level 4.6 g/dL (3.5-5.0); Alkaline Phosphatase 68 U/L (39-117); Anion Gap 17 (12-20); Aspartate Amino Transferase 14 U/L (5-31); Bilirubin Total 0.6 mg/dL (0.0-1.0); Blood Urea Nitrogen 7 mg/dL (9-16); Calcium 9.6 mg/dL (8.4-10.2); Carbon Dioxide 19 mmol/L (22-29); Chloride 108 mmol/L (96-108); Creatinine Clr Calc Pharmacy 95.4; Estimated Glomerular Filt Rate > 60; Glucose Random 128 mg/dL (60-115); Lipase 18 U/L (8-78); Potassium 3.8 mmol/L (3.3-5.1); Sodium 140 mmol/L (135-145)
--- NOTE | 2023-06-30 07:00 | ED.NAVMDI ---
HPI - Nausea/Vomiting/Diarrhea General Chief complaint: Nausea/Vomiting/Diarrhea Stated complaint: Abd pain Time Seen by Provider: 06/30/23 06:49 Source: patient Mode of arrival: ambulatory Limitations: no limitations History of Present Illness HPI Narrative: 22 year-old female with a history of intermittent abdominal pain, cyclic vomiting, gastritis presents to the ER with epigastric pain and nausea vomiting since last nigt. Reports she drank a cup of titos vodka and she also smokes marijuana but she tells me i know its not that . No diarrhea, fevers, constipation, urinary symptoms. Last BM was yesterday. Related Data Previous Rx's Medication Instructions Recorded ondansetron HCl 4 mg tablet 4 mg PO Q8H PRN nausea and 10/31/20 (Zofran) vomiting #14 tabs omeprazole 40 mg capsule,delayed 40 mg PO DAILY #14 caps 04/18/21 release sucralfate 1 gram tablet 1 g PO TID #20 tabs 04/18/21 omeprazole 40 mg capsule,delayed 40 mg PO DAILY #30 caps 09/07/21 release sucralfate 1 gram tablet 1 g PO TID #90 tabs 09/07/21 omeprazole 40 mg capsule,delayed 40 mg PO DAILY #30 caps 06/11/22 release sucralfate 1 gram tablet (Carafate) 1 g PO AC #90 tabs 06/11/22 ondansetron 4 mg disintegrating 4 mg PO Q8H 4 days #12 tabs 06/15/22 tablet amoxicillin 875 mg-potassium 1 tab PO BID 10 days #20 tabs 03/05/23 clavulanate 125 mg tablet aluminum-mag hydroxide-simethicone 5 ml PO 5XD PRN dyspepsia #355 mL 06/30/23 200 mg-200 mg-20 mg/5 mL oral susp (Maalox Advanced) ondansetron 4 mg disintegrating 4 mg PO Q6H PRN nausea and 06/30/23 tablet vomiting #14 tabs Allergies Allergy/AdvReac Type Severity Reaction Status Date / Time No Known Allergies Allergy Verified 06/30/23 06:12 [No Known Allergies*] Review of Systems Review of Systems: Yes all other systems are reviewed and are negative PMFSH Past Medical History Attestation statement: The following information was validated with the patient. Source: old records reviewed and nursing notes reviewed Medical History No known health problems Social History Social History Alcohol intake: never Patient Tobacco Use Status: Tobacco use Unknown Smoked in Last 30 Days: Yes Use of substances other than those prescribed or required for medical reasons: Yes Substance Use Type: Marijuana Substance Use Frequency: Daily Advance Directives: No Advance Directives Information Provided: Yes Physical Exam Vital Signs: Vital Signs: Last Vital Signs Temp 97.7 F 06/30/23 06:12 Pulse 98 06/30/23 06:12 Resp 24 H 06/30/23 06:12 BP 132/108 H 06/30/23 06:12 Pulse Ox 99 06/30/23 06:12 O2 Del Method Room Air 06/30/23 06:12 BMI result Body Mass Index 23.4 HTN and tachypnea likely due to active vomiting Appearance: Alert.? Oriented X3.? No acute distress.? Head: Normocephalic, atraumatic, no step-offs or deformities Eyes: Pupils equal, round and reactive to light.? Neck: Normal inspection.? Neck supple.? CVS: Normal heart rate and rhythm.? Pulses normal.? Respiratory: No respiratory distress.? Breath sounds normal.? Abdomen: Soft and nontender.? normal BS throughout Skin: Skin warm and dry.? Normal skin color.? Normal skin turgor.? Extremities: No lower extremity edema.? No calf ttp. 5/5 strength to bilateral upper and lower extremities Neuro: Oriented X 3.? No motor deficit.? No sensory deficit. CN 2-12 intact Course Reevaluation(s) Reevaluation #1: CBC with leukocytosis and left shift this could be reactive to nausea and vomiting. Chemistry no acute findings requiring intervention. Beta hCG pending as well as UA and CT abdomen and pelvis. Has not had N/v Time: 07:04 Reevaluation #2: Patient describes burning in the epigastrium, Maalox ordered. Again no TTP no need for abd CT, likely gerd or gastritis. Patient to be discharged home with Zofran and Maalox. Educated patient on diagnosis and treatment plan, answered all question, patient verbalizes understanding. At this time patient will be discharged home, advised to return with new or worsening symptoms. Educated on worrisome signs and symptoms and when to return. At this time I feel comfortable discharge home. Time: 09:24 Medications Administered Discontinued Medications Generic Name Dose Route Start Last Admin Trade Name Caitlyn PRN Reason Stop Dose Admin Al Hydroxide/Mg Hydroxide 15 ml 06/30/23 08:40 06/30/23 08:44 Magnesium Hydrox/Alum Hydrox 30 Ml Oral.Susp PO 06/30/23 08:41 15 ml ONCE ONE Administration Sodium Chloride 1,000 mls @ 999 mls/hr 06/30/23 07:00 06/30/23 07:06 Ns IV 06/30/23 08:00 999 mls/hr .Q1H1M MELIZA Administration Ondansetron HCl 4 mg 06/30/23 06:59 06/30/23 07:03 Ondansetron Hcl 4 Mg/2 Ml Vial IVPUSH 06/30/23 07:00 4 mg ONCE ONE Administration Medical Decision Making Medical Decision Making [facility] Narrative: 22-year-old female presents with epigastric pain nausea and vomiting since yesterday. Physical exam no abd tenderness to palpation History and physical exam concerning for cyclic vomiting versus viral illness. Less likely acute abdomen, appendicitis, obstruction, pancreatitis, cholecystitis, diverticulitis. Will rule out and electrolyte abnormalities unlikely UTI or cystitis Plan at this time labs, imaging, urine. Differential Diagnosis Differential Diagnoses: The differential diagnosis associated with the presentation includes History and physical exam concerning for cyclic vomiting versus viral illness. Less likely acute abdomen, appendicitis, obstruction, pancreatitis, cholecystitis, diverticulitis. Will rule out and electrolyte abnormalities unlikely UTI or cystitis Admission/Observation Consideration of admission/observation: Escalation of care including admission/observation considered Possible Lab Data [facility] Lab Attestation statement: I reviewed the patient's lab results. 06/30/23 06:24 06/30/23 06:24 Labs: Lab Results 06/30/23 Range/Units 06:24 WBC 15.8 H (4.8-10.8) X10*3/uL RBC 5.26 (4.20-5.50) X10*6/uL Hgb 14.1 (12.0-16.0) g/dl Hct 41.3 (37.0-47.0) % MCV 78.5 L (80.0-98.0) fL MCH 26.8 L (27.0-33.0) pg MCHC 34.1 (31.0-35.0) g/dl RDW 13.7 (11.0-16.0) % Plt Count 370 D (160-400) X10*3/uL MPV 10.8 (9.4-12.3) fL Immature Gran % (Auto) 0.5 H (0.0-0.4) % Neut % (Auto) 83.9 H (45-73) % Lymph % (Auto) 12.9 L (20-40) % [place] % (Auto) 2.2 (2-11) % Eos % (Auto) 0.1 (0-4) % Baso % (Auto) 0.4 (0-2) % Lymph # (Auto) 2.0 (1.2-4.9) X10*3/uL [place] # (Auto) 0.4 (0.1-1.2) X10*3/uL Eos # (Auto) 0.0 (0.0-0.4) X10*3/uL Baso # (Auto) 0.1 (0.0-0.2) X10*3/uL Abs Immat Gran (auto) 0.08 H (0.00-0.03) X10*3/uL Absolute Neuts (auto) 13.3 H (2.0-8.3) x10*3/uL Absolute Nucleated RBC 0.000 (0.0-0.012) X10*3/uL Nucleated RBC % (auto) 0.0 (0.0-0.2) /100WBC Sodium 140 (135-145) mmol/L Potassium 3.8 (3.3-5.1) mmol/L Chloride 108 (96-108) mmol/L Carbon Dioxide 19 L (22-29) mmol/L Anion Gap 17 (12-20) BUN 7 L (9-16) mg/dL Creatinine 0.71 (0.5-1.4) mg/dL Estim Creat Clear Calc 95.4 Estimated GFR > 60 Random Glucose 128 H (60-115) mg/dL Calcium 9.6 (8.4-10.2) mg/dL Total Bilirubin 0.6 (0.0-1.0) mg/dL AST 14 (5-31) U/L ALT 10 (0-31) U/L Alkaline Phosphatase 68 (39-117) U/L Total Protein 8.0 (6.5-8.0) g/dL Albumin 4.6 (3.5-5.0) g/dL Lipase 18 (8-78) U/L Beta HCG, Quant < 2 mIU/mL Ethyl Alcohol < 10 mg/dL External Record Review External record reviewed: Inpatient record, Office record, Outpatient record, Prior outpatient labs, Prior outpatient radiology, Primary care record and Outside ED record Tests considered The following testing was considered but not selected: No abdominal ttp --> no indicaiton for imaging at this time Prescription Management I considered prescription management with: Other (Antiemetic) Chronic Conditions Patient?s care impacted by: Other (gastritis ) Critical Care Time Critical Care Time Critical Care Time: No Discharge Plan Discharge Clinical Impression: Nausea & vomiting, Abdominal pain, Gastritis Patient Disposition: Still a Patient Instructions: Gastritis (ED), Acute Nausea and Vomiting (ED), Abdominal Pain (ED) Additional Instructions: Take your medications as prescribed. If you were prescribed antibiotics today, it is important that you take your medication to their entirety, do not skip any doses, do not finish them early. Follow-up with your primary care provider this week. Return to the emergency department with new or worsening symptoms. Such as fevers, chills, chest pain, shortness of breath, nausea, vomiting, dizziness, headache, vision changes, lethargy In case of emergency call 911 Your symptoms were likely caused by alcohol and marijuana. Prescriptions: New ondansetron 4 mg tablet,disintegrating 4 mg PO Q6H PRN (Reason: nausea and vomiting) Qty: 14 0RF alum-mag hydroxide-simeth [Maalox Advanced] 200-200-20 mg/5 mL suspension 5 ml PO 5XD PRN (Reason: dyspepsia) Qty: 355 0RF Rx Instructions: administer between meals and at bedtime No Action ondansetron HCl [Zofran] 4 mg tablet 4 mg PO Q8H PRN (Reason: nausea and vomiting) Qty: 14 0RF omeprazole 40 mg capsule,delayed release(DR/EC) 40 mg PO DAILY Qty: 30 2RF sucralfate 1 gram tablet 1 g PO TID Qty: 90 2RF ondansetron 4 mg tablet,disintegrating 4 mg PO Q8H 4 Days Qty: 12 0RF omeprazole 40 mg capsule,delayed release(DR/EC) 40 mg PO DAILY Qty: 14 0RF sucralfate 1 gram tablet 1 g PO TID Qty: 20 0RF omeprazole 40 mg capsule,delayed release(DR/EC) 40 mg PO DAILY Qty: 30 0RF sucralfate [Carafate] 1 gram tablet 1 g PO AC Qty: 90 0RF amoxicillin-pot clavulanate 875-125 mg tablet 1 tab PO BID 10 Days Qty: 20 0RF Referrals: Physician,Unknown J [Primary Care Provider] - 2 days
[2023-06-30] MEDS: ondansetron HCL 4 MG/2 ML VIAL IVPUSH (07:03)
[2023-06-30] MEDS: 0.9 % Sodium Chloride 1,000 ML 999 ML IV (07:06)
[2023-06-30 07:25] LABS: HCG Quantitative < 2 mIU/mL
[2023-06-30 07:49] LABS: Ethanol < 10 mg/dL
[2023-06-30] MEDS: Magnesium Hydrox/Alum Hydrox 30 ML ORAL.SUSP 15 ML PO (08:44)
[2023-06-30 10:06] VITALS: BP 117/66; PULSE 72; RESP 16; TEMP 37; O2SAT 97
== END 2023-06-30 10:08 | disposition still patient (30) ==
PROVIDERS: Physician Assistant; Emergency Provider Emergency Medicine Emergency Medical Services
DX: R10.13 Epigastric pain (principal); R11.2 Nausea with vomiting, unspecified; D72.829 Elevated white blood cell count, unspecified; K29.70 Gastritis, unspecified, without bleeding; Z79.899 Other long term (current) drug therapy
CPT/HCPCS: 36415; 80053; 80307; 83690; 84702; 85025; 96361; 96374; 99284; J2405

== ENCOUNTER 2023-07-03 00:04 | Emergency (ER) | payer MEDICARE, MEDICAID, SELFPAY ==
[2023-07-03 00:10] VITALS: PULSE 67; RESP 19; TEMP 36.1; O2SAT 100; BMI 24.6
[2023-07-03] MEDS: Ondansetron ODT 4 MG TAB.RAPDIS TRANSLINGU (00:23)
--- NOTE | 2023-07-03 00:25 | MHC.EDTECH ---
Patient brought into triage area,labs obtained and sent to lab,patient is unable to give a urine sample at this time.
[2023-07-03 00:31] LABS: Basophils Absolute Auto 0.1 X10*3/uL (0.0-0.2); Basophils Percent Auto 0.6 % (0-2); Eosinophils Absolute Auto 0.1 X10*3/uL (0.0-0.4); Eosinophils Percent Auto 0.8 % (0-4); Imm Gran Abs Auto 0.05 X10*3/uL (0.00-0.03); Imm Gran Pct Auto 0.5 % (0.0-0.4); Lymphocytes Absolute Auto 4.4 X10*3/uL (1.2-4.9); Lymphocytes Percent Auto 43.2 % (20-40); MANUAL DIFF FLAG NO; Mean Corpuscular HGB Conc 34.1 g/dl (31.0-35.0); Mean Corpuscular Hemoglobin 27.3 pg (27.0-33.0); Mean Corpuscular Volume 79.9 fL (80.0-98.0); Mean Platelet Volume 10.8 fL (9.4-12.3); Monocytes Absolute Auto 0.7 X10*3/uL (0.1-1.2); Monocytes Percent Auto 6.6 % (2-11); Neutrophils Absolute Auto 4.9 x10*3/uL (2.0-8.3); Neutrophils Percent Auto 48.3 % (45-73); Platelet Count 310 X10*3/uL (160-400); Red Blood Count 5.13 X10*6/uL (4.20-5.50); Red Cell Distribution Width 13.5 % (11.0-16.0); White Blood Count 10.2 X10*3/uL (4.8-10.8)
[2023-07-03 00:45] LABS: Alanine Aminotransferase 9 U/L (0-31); Albumin Level 4.2 g/dL (3.5-5.0); Alkaline Phosphatase 61 U/L (39-117); Anion Gap 14 (12-20); Aspartate Amino Transferase 16 U/L (5-31); Bilirubin Direct 0.4 mg/dL (0.0-0.5); Bilirubin Total 1.1 mg/dL (0.0-1.0); Blood Urea Nitrogen 9 mg/dL (9-16); Calcium 9.4 mg/dL (8.4-10.2); Carbon Dioxide 22 mmol/L (22-29); Chloride 107 mmol/L (96-108); Creatinine Clr Calc Pharmacy 101.4; Estimated Glomerular Filt Rate > 60; Glucose Random 95 mg/dL (60-115); Lipase 19 U/L (8-78); Potassium 3.7 mmol/L (3.3-5.1); Sodium 139 mmol/L (135-145); Total Protein 7.4 g/dL (6.5-8.0)
--- NOTE | 2023-07-03 01:54 | PC.NURSE ---
No answer in the WR @ this time. T/W calling pts cell, pt not answering.
== END 2023-07-03 01:59 | disposition left against medical advice (07) ==
PROVIDERS: Emergency Provider Emergency Medicine
DX: R10.9 Unspecified abdominal pain (principal); Z79.899 Other long term (current) drug therapy
CPT/HCPCS: 36415; 80048; 80076; 83690; 85025; 99281; 99283

== ENCOUNTER 2023-07-04 21:16 | Emergency (ER) | payer MEDICARE, MEDICAID, SELFPAY ==
[2023-07-04 21:30] VITALS: BP 96/72; PULSE 63; RESP 18; TEMP 36.6; O2SAT 98; BMI 22.7
[2023-07-04 21:58] LABS: MANUAL DIFF FLAG NO
[2023-07-04 22:12] LABS: Basophils Percent Auto 0.5 % (0-2); Eosinophils Percent Auto 0.1 % (0-4); Hematocrit 44.4 % (37.0-47.0); Hemoglobin 14.8 g/dl (12.0-16.0); Imm Gran Abs Auto 0.03 X10*3/uL (0.00-0.03); Imm Gran Pct Auto 0.4 % (0.0-0.4); Lymphocytes Absolute Auto 2.3 X10*3/uL (1.2-4.9); Lymphocytes Percent Auto 27.4 % (20-40); Mean Corpuscular HGB Conc 33.3 g/dl (31.0-35.0); Mean Corpuscular Hemoglobin 27.4 pg (27.0-33.0); Mean Corpuscular Volume 82.1 fL (80.0-98.0); Mean Platelet Volume 11.3 fL (9.4-12.3); Monocytes Absolute Auto 0.5 X10*3/uL (0.1-1.2); Monocytes Percent Auto 5.3 % (2-11); Neutrophils Absolute Auto 5.7 x10*3/uL (2.0-8.3); Neutrophils Percent Auto 66.3 % (45-73); Platelet Count 296 X10*3/uL (160-400); Red Blood Count 5.41 X10*6/uL (4.20-5.50); Red Cell Distribution Width 13.7 % (11.0-16.0); White Blood Count 8.5 X10*3/uL (4.8-10.8)
[2023-07-04 22:13] LABS: Alanine Aminotransferase 10 U/L (0-31); Albumin Level 4.4 g/dL (3.5-5.0); Alkaline Phosphatase 58 U/L (39-117); Anion Gap 15 (12-20); Aspartate Amino Transferase 22 U/L (5-31); Blood Urea Nitrogen 7 mg/dL (9-16); Calcium 9.8 mg/dL (8.4-10.2); Carbon Dioxide 26 mmol/L (22-29); Chloride 103 mmol/L (96-108); Estimated Glomerular Filt Rate > 60; Glucose Random 96 mg/dL (60-115); Potassium 4.5 mmol/L (3.3-5.1); Sodium 139 mmol/L (135-145); Total Protein 7.8 g/dL (6.5-8.0)
[2023-07-04 22:53] VITALS: BP 111/62; PULSE 52; RESP 20; TEMP 36.9; O2SAT 99
[2023-07-04 23:12] LABS: Appearance Urine Cloudy; Color Urine Dark Yellow; Glucose Urine UA Negative (Negative); Leukocyte Esterase Urine Small (1+) (Negative); Nitrite Urine Negative (Negative); Specific Gravity - Urine >= 1.030 (1.005-1.025); UMIC TRIGGER UACC YES; Urine Blood Large (3+) (Negative); Urine Ketones >=160 mg/dL (Negative); Urine Protein 100 (2+) mg/dL (Neg-Trace)
--- NOTE | 2023-07-04 23:14 | ED_ITS ---
HPI - Abdominal Pain General Chief Complaint: Abdominal Pain Stated Complaint: loss of appetite and vomiting x4 days Time Seen by Provider: 07/04/23 22:20 Source: patient Mode of arrival: ambulatory History of Present Illness HPI narrative: 22-year-old female with known history of cannabis induced vomiting presents with same, no fevers or chills, symptoms started on Sunday, she states she is decreased her cannabis intake but continues to have difficulty. Pain and discomfort is noted in the epigastrium. Related Data Previous Rx's Medication Instructions Recorded ondansetron HCl 4 mg tablet 4 mg PO Q8H PRN nausea and 10/31/20 (Zofran) vomiting #14 tabs omeprazole 40 mg capsule,delayed 40 mg PO DAILY #14 caps 04/18/21 release sucralfate 1 gram tablet 1 g PO TID #20 tabs 04/18/21 omeprazole 40 mg capsule,delayed 40 mg PO DAILY #30 caps 09/07/21 release sucralfate 1 gram tablet 1 g PO TID #90 tabs 09/07/21 omeprazole 40 mg capsule,delayed 40 mg PO DAILY #30 caps 06/11/22 release sucralfate 1 gram tablet (Carafate) 1 g PO AC #90 tabs 06/11/22 ondansetron 4 mg disintegrating 4 mg PO Q8H 4 days #12 tabs 06/15/22 tablet amoxicillin 875 mg-potassium 1 tab PO BID 10 days #20 tabs 03/05/23 clavulanate 125 mg tablet aluminum-mag hydroxide-simethicone 5 ml PO 5XD PRN dyspepsia #355 mL 06/30/23 200 mg-200 mg-20 mg/5 mL oral susp (Maalox Advanced) ondansetron 4 mg disintegrating 4 mg PO Q6H PRN nausea and 06/30/23 tablet vomiting #14 tabs prochlorperazine 25 mg rectal 25 mg MD BID PRN nausea and 07/04/23 suppository (Compazine) vomiting #7 ea sucralfate 100 mg/mL oral 10 ml PO BID #420 mL 07/05/23 suspension (Carafate) Allergies Allergy/AdvReac Type Severity Reaction Status Date / Time No Known Allergies Allergy Verified 07/04/23 21:32 [No Known Allergies*] Review of Systems Review of Systems Pertinent positives and negatives as stated in HPI PMFSH Past Medical History Source: nursing notes reviewed Medical History No known health problems Social History Social History Alcohol intake: never Patient Tobacco Use Status: Tobacco use Unknown Substance Use Type: Marijuana Advance Directives: No Advance Directives Information Provided: No Physical Exam ED Vital Signs: Vital Signs - 24 hr 07/04/23 21:30 07/04/23 22:53 Temperature 97.8 F 98.4 F Pulse Rate 63 52 Respiratory Rate 18 20 Blood Pressure 96/72 111/62 Pulse Oximetry 98 99 Oxygen Delivery Method Room Air Room Air BMI result Body Mass Index 22.7 VITAL SIGNS: Reviewed. GENERAL: Well developed, well nourished, in no acute distress. HEAD: Normocephalic/atraumatic EYES: PERRLA, EOMI EARS: Ext canals without abnormality NOSE: Nares patent bilateral OROPHARYNX: no oral lesions noted, posterior pharynx clear NECK: Supple, no adenopathy LUNGS: Normal breath sounds. No adventitious sounds or accessory muscle use. SpO2<99> CARDIOVASCULAR: Regular rate and rhythm without noted murmurs ABDOMEN: Soft, mild epigastric pain without rebound, Sparks's negative, non- distended with bowel sounds. MUSCULOSKELETAL: No tenderness, deformities, or effusions noted on gross inspection. EXTREMITIES: No cyanosis, clubbing or edema. SKIN: Inspection of the skin reveals no rashes NEUROLOGIC: Alert and oriented x 4. Strength and sensation to light touch were grossly intact x 4. Medical Decision Making Medical Decision Making MDM Narrative: 22-year-old female with history and clinical presentation, DDX: Cyclical vomiting, significant gastritis secondary to repeated vomiting episodes, likely mild dehydration. INTERVENTION: IV fluids, Zofran, Reglan, Benadryl, Carafate, GI cocktail I reviewed all investigations and hematologic indices are negative for leukocytosis/left shift/anemia/thrombocytopenia. Chemistries disease negative for CANDACE/electrolytes/liver enzyme derangements and beta hCG is undetectable. Urinalysis negative for urinary tract infection. UDS positive for cannabis. On re-evaluation patient is no longer nauseous and vomiting she received a GI cocktail and will be discharged with medications to help with the resulting gastritis that she is experiencing and given her struggles with using the sublingual Zofran when she becomes nauseous and vomiting I have provided her a prescription for rectal Compazine. Differential Diagnosis Differential Diagnoses: The differential diagnosis associated with the presentation includes Please see the discussion above Admission/Observation Consideration of admission/observation: Escalation of care including admission/observation considered Please see the discussion above Lab Data MDM Lab Attestation statement: I reviewed the patient's lab results. Please see the discussion above 07/04/23 21:52 07/04/23 21:52 Labs: Lab Results 07/04/23 07/04/23 07/04/23 Range/Units 21:52 23:01 23:02 WBC 8.5 (4.8-10.8) X10*3/uL RBC 5.41 (4.20-5.50) X10*6/uL Hgb 14.8 (12.0-16.0) g/dl Hct 44.4 (37.0-47.0) % MCV 82.1 (80.0-98.0) fL MCH 27.4 (27.0-33.0) pg MCHC 33.3 (31.0-35.0) g/dl RDW 13.7 (11.0-16.0) % Plt Count 296 (160-400) X10*3/uL MPV 11.3 (9.4-12.3) fL Immature Gran % (Auto) 0.4 (0.0-0.4) % Neut % (Auto) 66.3 (45-73) % Lymph % (Auto) 27.4 (20-40) % [place] % (Auto) 5.3 (2-11) % Eos % (Auto) 0.1 (0-4) % Baso % (Auto) 0.5 (0-2) % Lymph # (Auto) 2.3 (1.2-4.9) X10*3/uL [place] # (Auto) 0.5 (0.1-1.2) X10*3/uL Eos # (Auto) 0.0 (0.0-0.4) X10*3/uL Baso # (Auto) 0.0 (0.0-0.2) X10*3/uL Abs Immat Gran (auto) 0.03 (0.00-0.03) X10*3/uL Absolute Neuts (auto) 5.7 (2.0-8.3) x10*3/uL Absolute Nucleated RBC 0.000 (0.0-0.012) X10*3/uL Nucleated RBC % (auto) 0.0 (0.0-0.2) /100WBC Sodium 139 (135-145) mmol/L Potassium 4.5 D (3.3-5.1) mmol/L Chloride 103 (96-108) mmol/L Carbon Dioxide 26 (22-29) mmol/L Anion Gap 15 (12-20) BUN 7 L (9-16) mg/dL Creatinine 0.72 (0.5-1.4) mg/dL Estim Creat Clear Calc 94.0 Estimated GFR > 60 Random Glucose 96 (60-115) mg/dL Calcium 9.8 (8.4-10.2) mg/dL Total Bilirubin 1.0 (0.0-1.0) mg/dL AST 22 (5-31) U/L ALT 10 (0-31) U/L Alkaline Phosphatase 58 (39-117) U/L Total Protein 7.8 (6.5-8.0) g/dL Albumin 4.4 (3.5-5.0) g/dL Beta HCG, Quant < 2 mIU/mL Urine Color Dark Yellow Urine Appearance Cloudy Urine pH 8.0 (5.0-9.0) Ur Specific [place] >= 1.030 H (1.005-1.025) Urine Protein 100 (2+) H (Neg-Trace) mg/dL Urine Glucose (UA) Negative (Negative) mg/dL Urine Ketones >=160 (Negative) mg/dL Urine Blood Large (3+) H (Negative) Urine Nitrite Negative (Negative) Ur Leukocyte Esterase Small (1+) H (Negative) Urine RBC 0-2 (0-2) /HPF Urine WBC 6-10 H (0-5) /HPF Ur Squamous Epith Cells 6-10 (0-2) /HPF Urine Bacteria 1+ (None Seen) Hyaline Casts 0-2 (0-2) /LPF Urine Test Cancelled Urine Opiates Screen Not Detected (Not Detect) Urine Fentanyl Screen Not Detected (Not Detect) Ur Barbiturates Screen Not Detected (Not Detect) Ur Phencyclidine Scrn Not Detected (Not Detect) Ur Amphetamines Screen Not Detected (Not Detect) U Benzodiazepines Scrn Not Detected (Not Detect) Urine Cocaine Screen Not Detected (Not Detect) U Marijuana (THC) Screen POSITIVE H (Not Detect) External Record Review External record reviewed: Outpatient record and Prior outpatient labs Social Determinants Patient?s care significantly limited by Social Determinants of Health including: Alcoholism and drug addiction in family Medications Administered Generic Name Dose Route Start Last Admin Trade Name Freq PRN Reason Stop Dose Admin Sodium Chloride 1,000 mls @ 999 mls/hr 07/04/23 23:15 07/04/23 23:30 Ns IV 07/05/23 00:15 999 mls/hr .Q1H1M MELIZA Administration Discontinued Medications Generic Name Dose Route Start Last Admin Trade Name Freq PRN Reason Stop Dose Admin Diphenhydramine HCl 25 mg 07/04/23 23:14 07/04/23 23:25 Diphenhydramine Hcl 50 Mg/Ml Vial IVPUSH 07/04/23 23:15 25 mg ONCE ONE Administration Metoclopramide HCl 10 mg 07/04/23 23:14 07/04/23 23:25 Metoclopramide Hcl 10 Mg/2 Ml Vial IVPUSH 07/04/23 23:15 10 mg ONCE ONE Administration Ondansetron HCl 4 mg 07/04/23 23:13 07/04/23 23:25 Ondansetron Hcl 4 Mg/2 Ml Vial IVPUSH 07/04/23 23:14 4 mg ONCE ONE Administration Critical Care Time Critical Care Time Critical Care Time: Yes Total Critical Care Time: 60 Attestation: I personally attest to this time spent taking care of the patient. Discharge Plan Discharge Clinical Impression: Gastritis, Cannabis hyperemesis syndrome concurrent with and due to cannabis dependence Patient Disposition: Home, Self-Care Instructions: Gastritis (ED), Gastritis (DC), Diet for Stomach Ulcers and Gastritis (ED), Cannabis Abuse (ED) Additional Instructions: Follow-up with your primary care doctor. You have been prescribed medicine for the irritation of your stomach and you have also been prescribed medication to use when you are nauseous and vomiting. Prescriptions: New prochlorperazine [Compazine] 25 mg suppository 25 mg MD BID PRN (Reason: nausea and vomiting) Qty: 7 0RF sucralfate [Carafate] 100 mg/mL suspension 10 ml PO BID Qty: 420 0RF No Action ondansetron HCl [Zofran] 4 mg tablet 4 mg PO Q8H PRN (Reason: nausea and vomiting) Qty: 14 0RF omeprazole 40 mg capsule,delayed release(DR/EC) 40 mg PO DAILY Qty: 30 2RF sucralfate 1 gram tablet 1 g PO TID Qty: 90 2RF ondansetron 4 mg tablet,disintegrating 4 mg PO Q8H 4 Days Qty: 12 0RF omeprazole 40 mg capsule,delayed release(DR/EC) 40 mg PO DAILY Qty: 14 0RF sucralfate 1 gram tablet 1 g PO TID Qty: 20 0RF omeprazole 40 mg capsule,delayed release(DR/EC) 40 mg PO DAILY Qty: 30 0RF sucralfate [Carafate] 1 gram tablet 1 g PO AC Qty: 90 0RF amoxicillin-pot clavulanate 875-125 mg tablet 1 tab PO BID 10 Days Qty: 20 0RF ondansetron 4 mg tablet,disintegrating 4 mg PO Q6H PRN (Reason: nausea and vomiting) Qty: 14 0RF alum-mag hydroxide-simeth [Maalox Advanced] 200-200-20 mg/5 mL suspension 5 ml PO 5XD PRN (Reason: dyspepsia) Qty: 355 0RF Rx Instructions: administer between meals and at bedtime
[2023-07-04] MEDS: ondansetron HCL 4 MG/2 ML VIAL IVPUSH (23:25)
[2023-07-04] MEDS: Metoclopramide HCl 10 MG/2 ML VIAL IVPUSH (23:25)
[2023-07-04] MEDS: diphenhydrAMINE HCL 50 MG/ML VIAL 25 MG IVPUSH (23:25)
[2023-07-04 23:28] LABS: Bacteria Urine 1+ (None Seen); Hyaline Casts Urine 0-2 /LPF (0-2); RBC Urine 0-2 /HPF (0-2); UACC Culture Trigger YES
[2023-07-04 23:30] LABS: HCG Quantitative < 2 mIU/mL
[2023-07-04] MEDS: 0.9 % Sodium Chloride 1,000 ML 999 ML IV (23:30)
[2023-07-04 23:34] LABS: Amphetamine Screen Urine Not Detected (Not Detect); Barbiturates, Urine Not Detected (Not Detect); Benzodiazepines Screen Urine Not Detected (Not Detect); Cannabinoid Screen Urine POSITIVE (Not Detect); Cocaine Screen Urine Not Detected (Not Detect); Fentanyl, urine Not Detected (Not Detect); Opiate Screen Urine Not Detected (Not Detect); Phencyclidine Screen Urine Not Detected (Not Detect)
[2023-07-05] MEDS: Sucralfate Oral Suspension 1 GM/10 ML ORAL.SUSP PO (00:46)
[2023-07-05] MEDS: Lidocaine HCl Viscous 2 % 15 ML SOLUTION 10 ML MUCOUS MEM (00:46)
[2023-07-05] MEDS: Magnesium Hydrox/Alum Hydrox 30 ML ORAL.SUSP PO (00:46)
== END 2023-07-05 00:51 | disposition home or self-care (01) ==
PROVIDERS: Emergency Provider Student in an Organized Health Care Education/Training Program
DX: K29.70 Gastritis, unspecified, without bleeding (principal); R11.11 Vomiting without nausea; F12.20 Cannabis dependence, uncomplicated
CPT/HCPCS: 36415; 80053; 80307; 81001; 84702; 85025; 87086; 96374; 96375; 99283; 99284; J1200; J2405; J2765

== ENCOUNTER 2023-10-07 19:44 | Emergency (ER) | payer MEDICARE, MEDICAID, SELFPAY ==
[2023-10-07 19:47] VITALS: BP 108/78; PULSE 93
[2023-10-07 20:48] VITALS: BP 103/64; PULSE 98; RESP 17; TEMP 36.2; O2SAT 100; BMI 22.7
[2023-10-07] MEDS: Ondansetron ODT 4 MG TAB.RAPDIS TRANSLINGU (21:02)
[2023-10-07 21:36] LABS: MANUAL DIFF FLAG NO
[2023-10-07 21:38] LABS: Basophils Percent Auto 0.3 % (0-2); Hematocrit 40.5 % (37.0-47.0); Hemoglobin 14.1 g/dl (12.0-16.0); Imm Gran Abs Auto 0.06 X10*3/uL (0.00-0.03); Imm Gran Pct Auto 0.5 % (0.0-0.4); Lymphocytes Absolute Auto 1.5 X10*3/uL (1.2-4.9); Lymphocytes Percent Auto 12.5 % (20-40); Mean Corpuscular HGB Conc 34.8 g/dl (31.0-35.0); Mean Corpuscular Volume 80.5 fL (80.0-98.0); Mean Platelet Volume 10.5 fL (9.4-12.3); Monocytes Absolute Auto 0.7 X10*3/uL (0.1-1.2); Monocytes Percent Auto 5.8 % (2-11); Neutrophils Absolute Auto 9.9 x10*3/uL (2.0-8.3); Neutrophils Percent Auto 80.9 % (45-73); Platelet Count 261 X10*3/uL (160-400); Red Blood Count 5.03 X10*6/uL (4.20-5.50); Red Cell Distribution Width 13.5 % (11.0-16.0); White Blood Count 12.3 X10*3/uL (4.8-10.8)
[2023-10-07 21:58] LABS: Alanine Aminotransferase 7 U/L (0-31); Albumin Level 4.6 g/dL (3.5-5.0); Alkaline Phosphatase 57 U/L (39-117); Anion Gap 18 (12-20); Aspartate Amino Transferase 14 U/L (5-31); Bilirubin Total 0.9 mg/dL (0.0-1.0); Blood Urea Nitrogen 7 mg/dL (9-16); Carbon Dioxide 18 mmol/L (22-29); Chloride 107 mmol/L (96-108); Creatinine Clr Calc Pharmacy 101.1; Estimated Glomerular Filt Rate > 60; Glucose Random 126 mg/dL (60-115); Potassium 3.2 mmol/L (3.3-5.1); Sodium 140 mmol/L (135-145); Total Protein 7.6 g/dL (6.5-8.0)
[2023-10-07 22:16] LABS: HCG Quantitative 19858 mIU/mL
[2023-10-07 23:44] VITALS: BP 129/67; PULSE 78; RESP 18; TEMP 37.1; O2SAT 99
--- NOTE | 2023-10-07 23:48 | ED.NAVMDI ---
HPI - Nausea/Vomiting/Diarrhea General Chief complaint: Nausea/Vomiting/Diarrhea Stated complaint: n/v, + Time Seen by Provider: 10/07/23 23:46 Source: patient Mode of arrival: ambulatory Limitations: no limitations History of Present Illness ED Provider: alissa CASTILLO Narrative: Patient's history of gastritis tested positive for last week approximately 4-5 weeks comes here for worsening of the vomiting usually she gets vomiting early in the a.m. in the past but now she is vomiting all day unable to eat or drink anything today no diarrhea no fever no chills no urinary complaints Related Data Previous Rx's ?Medication ?Instructions ?Recorded ondansetron HCl 4 mg tablet 4 mg PO Q8H PRN nausea and 10/31/20 (Zofran) vomiting #14 tabs omeprazole 40 mg capsule,delayed 40 mg PO DAILY #14 caps 04/18/21 release sucralfate 1 gram tablet 1 g PO TID #20 tabs 04/18/21 omeprazole 40 mg capsule,delayed 40 mg PO DAILY #30 caps 09/07/21 release sucralfate 1 gram tablet 1 g PO TID #90 tabs 09/07/21 omeprazole 40 mg capsule,delayed 40 mg PO DAILY #30 caps 06/11/22 release sucralfate 1 gram tablet (Carafate) 1 g PO AC #90 tabs 06/11/22 ondansetron 4 mg disintegrating 4 mg PO Q8H 4 days #12 tabs 06/15/22 tablet amoxicillin 875 mg-potassium 1 tab PO BID 10 days #20 tabs 03/05/23 clavulanate 125 mg tablet aluminum-mag hydroxide-simethicone 5 ml PO 5XD PRN dyspepsia #355 mL 06/30/23 200 mg-200 mg-20 mg/5 mL oral susp (Maalox Advanced) ondansetron 4 mg disintegrating 4 mg PO Q6H PRN nausea and 06/30/23 tablet vomiting #14 tabs prochlorperazine 25 mg rectal 25 mg CO BID PRN nausea and 07/04/23 suppository (Compazine) vomiting #7 ea sucralfate 100 mg/mL oral 10 ml PO BID #420 mL 07/05/23 suspension (Carafate) ondansetron 4 mg disintegrating 4 mg PO Q6-8H PRN nausea and 10/08/23 tablet vomiting #20 tabs Allergies Allergy/AdvReac Type Severity Reaction Status Date / Time No Known Allergies Allergy Verified 10/07/23 20:53 [No Known Allergies*] Review of Systems Review of Systems: Yes all other systems are reviewed and are negative [facility] Past Medical History Medical History No known health problems Social History Social History Alcohol intake: never Patient Tobacco Use Status: Tobacco use Unknown Smoked in Last 30 Days: No Use of substances other than those prescribed or required for medical reasons: No Substance Use Type: Marijuana Advance Directives: No Advance Directives Information Provided: No Do you have a plan to hurt others: No Plan Patient : Yes Physical Exam Vital Signs: Vital Signs: Last Vital Signs Temp 98.7 F 10/08/23 01:49 Pulse 91 10/08/23 01:49 Resp 18 10/08/23 01:49 BP 115/67 10/08/23 01:49 Pulse Ox 99 10/08/23 01:49 O2 Del Method Room Air 10/08/23 01:49 BMI result Body Mass Index 22.7 Appearance: Alert. Oriented X3. No acute distress. Eyes: No pallor or icterus ENT: Pharynx normal. Oral Mucosa moist Neck: Normal inspection. Neck supple. CVS: Normal heart rate and rhythm. Pulses normal. Respiratory: No respiratory distress. Equal air entry bilateral, no wheezing/rales/rhonchi Abdomen: Soft , tenderness in epigastric area no guarding or rebound tenderness Bowel sounds are present, no mass palpable, no CVA tenderness Skin: Skin warm and dry. Normal skin color. Normal skin turgor. Extremities: No lower extremity edema. No calf tenderness Neuro: Oriented X 3. Medications Administered Generic Name Dose Route Start Last Admin Trade Name Freq PRN Reason Stop Dose Admin Sodium Chloride 1,000 mls @ 999 mls/hr 10/08/23 01:46 10/08/23 02:15 Ns IV 10/08/23 02:46 999 mls/hr .Q1H1M ONE Administration Discontinued Medications Generic Name Dose Route Start Last Admin Trade Name Freq PRN Reason Stop Dose Admin Famotidine 20 mg 10/08/23 00:05 10/08/23 00:24 Famotidine/Pf 20 Mg/2 Ml Vial IVPUSH 10/08/23 00:06 20 mg ONCE ONE Administration Sodium Chloride 1,000 mls @ 999 mls/hr 10/07/23 23:49 10/08/23 01:55 Ns IV 10/08/23 00:49 Infused .Q1H1M ONE Infusion Metoclopramide HCl 10 mg 10/08/23 01:45 10/08/23 02:15 Metoclopramide Hcl 10 Mg/2 Ml Vial IVPUSH 10/08/23 01:46 10 mg ONCE ONE Administration Ondansetron HCl 4 mg 10/07/23 20:59 10/07/23 21:02 Ondansetron Odt 4 Mg Tab.Rapdis TRANSLINGU 10/07/23 21:00 4 mg ONCE ONE Administration Ondansetron HCl 4 mg 10/08/23 00:05 10/08/23 00:24 Ondansetron Hcl 4 Mg/2 Ml Vial IVPUSH 10/08/23 00:06 4 mg ONCE ONE Administration Medical Decision Making Medical Decision Making [facility] Narrative: Patient's with history of gastritis with hyperemesis gravidarum vomiting multiple times will give IV fluids symptomatic treatment Differential Diagnosis Differential Diagnoses: The differential diagnosis associated with the presentation includes Lab Data [facility] Lab Attestation statement: I reviewed the patient's lab results. 10/07/23 21:33 10/07/23 21:33 Labs: Lab Results 10/07/23 10/08/23 Range/Units 21:33 01:48 WBC 12.3 H (4.8-10.8) X10*3/uL RBC 5.03 (4.20-5.50) X10*6/uL Hgb 14.1 (12.0-16.0) g/dl Hct 40.5 (37.0-47.0) % MCV 80.5 (80.0-98.0) fL MCH 28.0 (27.0-33.0) pg MCHC 34.8 (31.0-35.0) g/dl RDW 13.5 (11.0-16.0) % Plt Count 261 (160-400) X10*3/uL MPV 10.5 (9.4-12.3) fL Immature Gran % (Auto) 0.5 H (0.0-0.4) % Neut % (Auto) 80.9 H (45-73) % Lymph % (Auto) 12.5 L (20-40) % [place] % (Auto) 5.8 (2-11) % Eos % (Auto) 0.0 (0-4) % Baso % (Auto) 0.3 (0-2) % Lymph # (Auto) 1.5 (1.2-4.9) X10*3/uL [place] # (Auto) 0.7 (0.1-1.2) X10*3/uL Eos # (Auto) 0.0 (0.0-0.4) X10*3/uL Baso # (Auto) 0.0 (0.0-0.2) X10*3/uL Abs Immat Gran (auto) 0.06 H (0.00-0.03) X10*3/uL Absolute Neuts (auto) 9.9 H (2.0-8.3) x10*3/uL Absolute Nucleated RBC 0.000 (0.0-0.012) X10*3/uL Nucleated RBC % (auto) 0.0 (0.0-0.2) /100WBC Sodium 140 (135-145) mmol/L Potassium 3.2 L D (3.3-5.1) mmol/L Chloride 107 (96-108) mmol/L Carbon Dioxide 18 L (22-29) mmol/L Anion Gap 18 (12-20) BUN 7 L (9-16) mg/dL Creatinine 0.67 (0.5-1.4) mg/dL Estim Creat Clear Calc 101.1 Estimated GFR > 60 Random Glucose 126 H (60-115) mg/dL Calcium 10.0 (8.4-10.2) mg/dL Total Bilirubin 0.9 (0.0-1.0) mg/dL AST 14 (5-31) U/L ALT 7 (0-31) U/L Alkaline Phosphatase 57 (39-117) U/L Total Protein 7.6 (6.5-8.0) g/dL Albumin 4.6 (3.5-5.0) g/dL Beta HCG, Quant 28282 mIU/mL Urine Color Dark Yellow Urine Appearance Cloudy Urine pH 6.0 (5.0-9.0) Ur Specific [place] >= 1.030 H (1.005-1.025) Urine Protein 100 (2+) H (Neg-Trace) mg/dL Urine Glucose (UA) 500 H (Negative) mg/dL Urine Ketones >=160 (Negative) mg/dL Urine Blood Negative (Negative) Urine Nitrite Negative (Negative) Ur Leukocyte Esterase Negative (Negative) Urine RBC 0-2 (0-2) /HPF Urine WBC 0-5 (0-5) /HPF Ur Squamous Epith Cells 11-20 (0-2) /HPF Urine Bacteria 1+ (None Seen) Hyaline Casts 3-5 (0-2) /LPF Discharge Plan Discharge Clinical Impression: Hyperemesis gravidarum Patient Disposition: Home, Self-Care Instructions: Hyperemesis Gravidarum (ED) Additional Instructions: Drink plenty of fluids Avoid fried foods Medicine for nausea as prescribed Follow with PCP Prescriptions: New ondansetron 4 mg tablet,disintegrating 4 mg PO Q6-8H PRN (Reason: nausea and vomiting) Qty: 20 0RF No Action ondansetron HCl [Zofran] 4 mg tablet 4 mg PO Q8H PRN (Reason: nausea and vomiting) Qty: 14 0RF omeprazole 40 mg capsule,delayed release(DR/EC) 40 mg PO DAILY Qty: 30 2RF sucralfate 1 gram tablet 1 g PO TID Qty: 90 2RF ondansetron 4 mg tablet,disintegrating 4 mg PO Q8H 4 Days Qty: 12 0RF omeprazole 40 mg capsule,delayed release(DR/EC) 40 mg PO DAILY Qty: 14 0RF sucralfate 1 gram tablet 1 g PO TID Qty: 20 0RF omeprazole 40 mg capsule,delayed release(DR/EC) 40 mg PO DAILY Qty: 30 0RF sucralfate [Carafate] 1 gram tablet 1 g PO AC Qty: 90 0RF prochlorperazine [Compazine] 25 mg suppository 25 mg CO BID PRN (Reason: nausea and vomiting) Qty: 7 0RF sucralfate [Carafate] 100 mg/mL suspension 10 ml PO BID Qty: 420 0RF amoxicillin-pot clavulanate 875-125 mg tablet 1 tab PO BID 10 Days Qty: 20 0RF ondansetron 4 mg tablet,disintegrating 4 mg PO Q6H PRN (Reason: nausea and vomiting) Qty: 14 0RF alum-mag hydroxide-simeth [Maalox Advanced] 200-200-20 mg/5 mL suspension 5 ml PO 5XD PRN (Reason: dyspepsia) Qty: 355 0RF Rx Instructions: administer between meals and at bedtime Print Language: Armenian
--- NOTE | 2023-10-07 23:48 | MHC.EDTECH ---
Patient brought from the waiting room,changed into hospital attire,warm blanket given,vitals taken,boyfriend at bedside and call ramesh in reach
[2023-10-08] MEDS: 0.9 % Sodium Chloride 1,000 ML 999 ML IV ×2 (00:04→02:15)
[2023-10-08] MEDS: Famotidine/PF 20 MG/2 ML VIAL IVPUSH (00:24)
[2023-10-08] MEDS: ondansetron HCL 4 MG/2 ML VIAL IVPUSH (00:24)
--- NOTE | 2023-10-08 00:31 | PC.NURSE ---
pt biba from home, a&ox4, respirations even and unlabored, reporting onset of nausea and vomiting with abdominal burning since yesterday at 4am. pt reports she is , unknown time; reports finding out last week. pt reports having trouble sleeping due to the n/v. pt denies abdominal pain and diarrhea. 20G placed in left ac, pt medciated per jun.
[2023-10-08 01:49] VITALS: BP 115/67; PULSE 91; RESP 18; TEMP 37.1; O2SAT 99
--- NOTE | 2023-10-08 01:50 | MHC.EDTECH ---
Patient ambulated to the bathroom with a steady gait,urine sample obtained and sent to lab, patient was given a giger sherice patient was unable to tolerate patient vomited after drinking,MD was made aware and vitals taken,
[2023-10-08 02:04] LABS: Appearance Urine Cloudy; Color Urine Dark Yellow; Glucose Urine UA 500 mg/dL (Negative); Leukocyte Esterase Urine Negative (Negative); Nitrite Urine Negative (Negative); Specific Gravity - Urine >= 1.030 (1.005-1.025); UMIC TRIGGER UACC YES; Urine Blood Negative (Negative); Urine Ketones >=160 mg/dL (Negative); Urine Protein 100 (2+) mg/dL (Neg-Trace)
[2023-10-08 02:06] LABS: Bacteria Urine 1+ (None Seen); RBC Urine 0-2 /HPF (0-2); WBC Urine 0-5 /HPF (0-5)
[2023-10-08] MEDS: Metoclopramide HCl 10 MG/2 ML VIAL IVPUSH (02:15)
[2023-10-08 03:38] VITALS: BP 105/53; PULSE 96; RESP 16; TEMP 37.1; O2SAT 99
--- NOTE | 2023-10-08 03:42 | MHC.EDTECH ---
Hourly rounds and vitals completed,patient is waiting to be discharged at this time
[2023-10-08 03:47] VITALS: BP 105/53; PULSE 96; RESP 16; TEMP 37.1; O2SAT 99
--- NOTE | 2023-10-08 03:47 | PC.NURSE ---
provider aware of pt d/c vitals, pt okayed to discharge at this time.
== END 2023-10-08 03:47 | disposition home or self-care (01) ==
PROVIDERS: Internal Medicine; Emergency Provider Emergency Medicine Emergency Medical Services
DX: O21.0 Mild hyperemesis gravidarum (principal); Z3A.01 Less than 8 weeks gestation of pregnancy
CPT/HCPCS: 36415; 80053; 81001; 84702; 85025; 96361; 96374; 96375; 99285; J2405; J2765

== ENCOUNTER 2023-10-09 05:14 | Emergency (ER) | payer MEDICARE, MEDICAID, SELFPAY ==
[2023-10-09 05:19] VITALS: BP 132/80; BP 134/57; PULSE 102; PULSE 120; RESP 20; TEMP 37.3; O2SAT 100; O2SAT 98; BMI 25.3
[2023-10-09 05:34] LABS: Basophils Absolute Auto 0.1 X10*3/uL (0.0-0.2); Basophils Percent Auto 0.6 % (0-2); Eosinophils Percent Auto 0.2 % (0-4); Hematocrit 35.7 % (37.0-47.0); Hemoglobin 12.1 g/dl (12.0-16.0); Imm Gran Abs Auto 0.05 X10*3/uL (0.00-0.03); Imm Gran Pct Auto 0.5 % (0.0-0.4); Lymphocytes Absolute Auto 2.5 X10*3/uL (1.2-4.9); Lymphocytes Percent Auto 23.6 % (20-40); MANUAL DIFF FLAG NO; Mean Corpuscular HGB Conc 33.9 g/dl (31.0-35.0); Mean Corpuscular Hemoglobin 27.5 pg (27.0-33.0); Mean Corpuscular Volume 81.1 fL (80.0-98.0); Mean Platelet Volume 10.8 fL (9.4-12.3); Monocytes Absolute Auto 0.8 X10*3/uL (0.1-1.2); Monocytes Percent Auto 7.7 % (2-11); Neutrophils Absolute Auto 7.3 x10*3/uL (2.0-8.3); Neutrophils Percent Auto 67.4 % (45-73); Platelet Count 243 X10*3/uL (160-400); Red Cell Distribution Width 13.8 % (11.0-16.0); White Blood Count 10.8 X10*3/uL (4.8-10.8)
[2023-10-09] MEDS: ondansetron HCL 4 MG/2 ML VIAL IVPUSH (05:34)
--- NOTE | 2023-10-09 05:45 | PC.NURSE ---
pt biba from home, a&ox4, respirations even and unlabored. pt reporting onset of nausea,vomiting, diarrhea and 10/10 abdominal pain. pt reports finding out she was last week. pt reports being seen here yesterday for similar symptoms,reports take home zofran has not worked. 20G placed in right ac, labs obtained, verbal order for zofran given.
[2023-10-09 06:08] LABS: Alanine Aminotransferase 7 U/L (0-31); Alkaline Phosphatase 46 U/L (39-117); Anion Gap 11 (12-20); Aspartate Amino Transferase 14 U/L (5-31); Bilirubin Total 0.9 mg/dL (0.0-1.0); Blood Urea Nitrogen 5 mg/dL (9-16); Calcium 8.8 mg/dL (8.4-10.2); Carbon Dioxide 21 mmol/L (22-29); Chloride 109 mmol/L (96-108); Creatinine Clr Calc Pharmacy 136.3; Estimated Glomerular Filt Rate > 60; Glucose Random 101 mg/dL (60-115); Potassium 3.2 mmol/L (3.3-5.1); Sodium 138 mmol/L (135-145); Total Protein 6.3 g/dL (6.5-8.0)
[2023-10-09] MEDS: 0.9 % Sodium Chloride 1,000 ML 999 ML IV (06:36)
[2023-10-09] MEDS: Famotidine/PF 20 MG/2 ML VIAL IVPUSH (06:54)
[2023-10-09] MEDS: Lactated Ringers 1,000 ML 999 ML IV (06:54)
--- NOTE | 2023-10-09 07:02 | ED.NAVMDI ---
HPI - Nausea/Vomiting/Diarrhea General Chief complaint: Nausea/Vomiting/Diarrhea Stated complaint: Abd pain, n/v Time Seen by Provider: 10/09/23 06:35 Source: patient, family, RN notes reviewed and old records reviewed Mode of arrival: ambulatory Limitations: no limitations History of Present Illness ED Provider: Kehinde Che PA-C HPI Narrative: 22 yo female currently in the early stage of (?5-6 weeks with LMP Early August) who presents to the ER for evaluation of N/V/D that started last night. She was seen here 2 days ago for the same and was sent home with ceciliawilliam which she said is not working. She states after eating dinner last night she had multiple episodes of nonbloody vomiting overnight. It is associated with a burning epigastric and chest pain. She also has had a few episodes of nonbloody stools, loose. She denies any lower abdominal cramping or vaginal bleeding. Her 1st OBGYN appointment is October 29. MD elicited complaint: nausea, vomiting and diarrhea Pertinent past history: other (Early ) Onset (ago): hour(s) Description of vomiting: food contents Description of diarrhea: loose Associated nausea: Yes Associated abdominal pain: Yes Location of pain: epigastric Radiation: chest Severity: moderate Quality: other (Burning) Exacerbating factors: eating Relieving factors: none Associated symptoms: denies other symptoms Related Data Previous Rx's ?Medication ?Instructions ?Recorded ondansetron HCl 4 mg tablet 4 mg PO Q8H PRN nausea and 10/31/20 (Zofran) vomiting #14 tabs omeprazole 40 mg capsule,delayed 40 mg PO DAILY #14 caps 04/18/21 release sucralfate 1 gram tablet 1 g PO TID #20 tabs 04/18/21 omeprazole 40 mg capsule,delayed 40 mg PO DAILY #30 caps 09/07/21 release sucralfate 1 gram tablet 1 g PO TID #90 tabs 09/07/21 omeprazole 40 mg capsule,delayed 40 mg PO DAILY #30 caps 06/11/22 release sucralfate 1 gram tablet (Carafate) 1 g PO AC #90 tabs 06/11/22 ondansetron 4 mg disintegrating 4 mg PO Q8H 4 days #12 tabs 06/15/22 tablet amoxicillin 875 mg-potassium 1 tab PO BID 10 days #20 tabs 03/05/23 clavulanate 125 mg tablet aluminum-mag hydroxide-simethicone 5 ml PO 5XD PRN dyspepsia #355 mL 06/30/23 200 mg-200 mg-20 mg/5 mL oral susp (Maalox Advanced) ondansetron 4 mg disintegrating 4 mg PO Q6H PRN nausea and 06/30/23 tablet vomiting #14 tabs prochlorperazine 25 mg rectal 25 mg [place] BID PRN nausea and 07/04/23 suppository (Compazine) vomiting #7 ea sucralfate 100 mg/mL oral 10 ml PO BID #420 mL 07/05/23 suspension (Carafate) ondansetron 4 mg disintegrating 4 mg PO Q6-8H PRN nausea and 10/08/23 tablet vomiting #20 tabs Allergies Allergy/AdvReac Type Severity Reaction Status Date / Time No Known Allergies Allergy Verified 10/09/23 05:23 [No Known Allergies*] Review of Systems Review of Systems: Yes all other systems are reviewed and are negative Gastrointestinal: Gastrointestinal: Reports nausea PMFSH Past Medical History Medical History No known health problems Social History Social History Alcohol intake: never Patient Tobacco Use Status: Tobacco use Unknown Smoked in Last 30 Days: No Use of substances other than those prescribed or required for medical reasons: No Substance Use Type: Marijuana Advance Directives: No Advance Directives Information Provided: Yes Do you have a plan to hurt others: No Plan Patient : Yes Physical Exam Vital Signs: Vital Signs: Last Vital Signs Temp 97.7 F 10/09/23 08:04 Pulse 95 10/09/23 08:04 Resp 16 10/09/23 08:04 BP 123/69 10/09/23 08:04 Pulse Ox 99 10/09/23 08:04 O2 Del Method Room Air 10/09/23 08:04 BMI result Body Mass Index 25.3 Appearance: Alert. Oriented X3. No acute distress. Head: normocephalic, atraumatic. Eyes: Pupils equal, round and reactive to light. ENT: Pharynx normal. No tonsillar swelling or exudate. Neck: Normal inspection. Neck supple. CVS: Normal heart rate and rhythm. Pulses normal. Respiratory: No respiratory distress. Breath sounds normal. Abdomen: Soft and nontender. +BS x4 Skin: Skin warm and dry. Normal skin color. Normal skin turgor. No rashes. Extremities: No lower extremity edema. No joint swelling. Neuro/psych: Oriented X 3. No motor deficit. No sensory deficit. CN II-XII intact. Normal speech and cognition. Medications Administered Discontinued Medications Generic Name Dose Route Start Last Admin Trade Name Freq PRN Reason Stop Dose Admin Famotidine 20 mg 10/09/23 06:43 10/09/23 06:54 Famotidine/Pf 20 Mg/2 Ml Vial IVPUSH 10/09/23 06:44 20 mg ONCE ONE Administration Sodium Chloride 1,000 mls @ 999 mls/hr 10/09/23 06:15 10/09/23 06:36 Ns IV 10/09/23 07:15 999 mls/hr .Q1H1M MELIZA Administration Lactated Ringer's 1,000 mls @ 999 mls/hr 10/09/23 06:45 10/09/23 06:54 Lr IV 10/09/23 07:45 999 mls/hr .Q1H1M MELIZA Administration Ondansetron HCl 4 mg 10/09/23 05:31 10/09/23 05:34 Ondansetron Hcl 4 Mg/2 Ml Vial IVPUSH 10/09/23 05:32 4 mg ONCE ONE Administration Potassium Chloride 40 meq 10/09/23 07:54 10/09/23 07:59 Potassium Chloride Er 20 Meq Tab.Er.Prt PO 10/09/23 07:55 40 meq ONCE ONE Administration Medical Decision Making Medical Decision Making [facility] Narrative: 22-year-old female currently in the early stage of presenting to the ER for evaluation of nausea, vomiting, diarrhea for the last 4 days. She reports this episode has started since last night. No improvement with Zofran at home. She also has epigastric and chest burning, most likely related to acid reflux. She was given 2 L IV fluid here in the emergency department along with antiemetics and Pepcid. She is tolerating p.o. and her potassium was repleted orally. She wants to go home. He has no vaginal bleeding or cramping. She is stable for discharge home with addition of B6 and Unisom. She will follow-up with her OBGYN. Return precautions were discussed. Differential Diagnosis Differential Diagnoses: The differential diagnosis associated with the presentation includes Hyperemesis gravidarum, nausea and vomiting associated with 1st trimester , dehydration, hypokalemia due to GI losses Admission/Observation Consideration of admission/observation: Escalation of care including admission/observation considered Lab Data MDM Lab Attestation statement: I reviewed the patient's lab results. Anemia, hypokalemia 10/09/23 05:30 10/09/23 05:46 Labs: Lab Results 10/09/23 10/09/23 Range/Units 05:30 05:46 WBC 10.8 (4.8-10.8) X10*3/uL RBC 4.40 (4.20-5.50) X10*6/uL Hgb 12.1 (12.0-16.0) g/dl Hct 35.7 L (37.0-47.0) % MCV 81.1 (80.0-98.0) fL MCH 27.5 (27.0-33.0) pg MCHC 33.9 (31.0-35.0) g/dl RDW 13.8 (11.0-16.0) % Plt Count 243 (160-400) X10*3/uL MPV 10.8 (9.4-12.3) fL Immature Gran % (Auto) 0.5 H (0.0-0.4) % Neut % (Auto) 67.4 (45-73) % Lymph % (Auto) 23.6 (20-40) % [place] % (Auto) 7.7 (2-11) % Eos % (Auto) 0.2 (0-4) % Baso % (Auto) 0.6 (0-2) % Lymph # (Auto) 2.5 (1.2-4.9) X10*3/uL [place] # (Auto) 0.8 (0.1-1.2) X10*3/uL Eos # (Auto) 0.0 (0.0-0.4) X10*3/uL Baso # (Auto) 0.1 (0.0-0.2) X10*3/uL Abs Immat Gran (auto) 0.05 H (0.00-0.03) X10*3/uL Absolute Neuts (auto) 7.3 (2.0-8.3) x10*3/uL Absolute Nucleated RBC 0.000 (0.0-0.012) X10*3/uL Nucleated RBC % (auto) 0.0 (0.0-0.2) /100WBC Sodium 138 (135-145) mmol/L Potassium 3.2 L (3.3-5.1) mmol/L Chloride 109 H (96-108) mmol/L Carbon Dioxide 21 L (22-29) mmol/L Anion Gap 11 L (12-20) BUN 5 L (9-16) mg/dL Creatinine 0.55 (0.5-1.4) mg/dL Estim Creat Clear Calc 136.3 Estimated GFR > 60 Random Glucose 101 (60-115) mg/dL Calcium 8.8 D (8.4-10.2) mg/dL Total Bilirubin 0.9 (0.0-1.0) mg/dL AST 14 (5-31) U/L ALT 7 (0-31) U/L Alkaline Phosphatase 46 (39-117) U/L Total Protein 6.3 L (6.5-8.0) g/dL Albumin 4.0 (3.5-5.0) g/dL Beta HCG, Quant 51078 mIU/mL Independent Historian Clinical information obtained from an independent historian. History obtained from or confirmed by: Parent External Record Review External record reviewed: Outpatient record, Prior outpatient labs and Prior outpatient radiology Prescription Management I considered prescription management with: Other (antiemetic) Critical Care Time Critical Care Time Critical Care Time: No Discharge Plan Discharge Clinical Impression: Nausea, vomiting, and diarrhea Patient Disposition: Home, Self-Care Instructions: (ED), Acute Nausea and Vomiting (ED) Additional Instructions: Your nausea and vomiting is due to your . Recommend getting [id number] Unisom and vitamin B6. Take these medications together every night to help prevent nausea the next day. The combination of potato chips and lemonade has also shown to improve nausea and vomiting associated with . TUMS are safe to take for your burning abdominal pain - it is common to get acid reflux with Follow up with your service attendant cafeteria If you develop new or worsening symptoms call 911 or come back to the ER for further evaluation. Prescriptions: No Action ondansetron HCl [Zofran] 4 mg tablet 4 mg PO Q8H PRN (Reason: nausea and vomiting) Qty: 14 0RF omeprazole 40 mg capsule,delayed release(DR/EC) 40 mg PO DAILY Qty: 30 2RF sucralfate 1 gram tablet 1 g PO TID Qty: 90 2RF ondansetron 4 mg tablet,disintegrating 4 mg PO Q8H 4 Days Qty: 12 0RF omeprazole 40 mg capsule,delayed release(DR/EC) 40 mg PO DAILY Qty: 14 0RF sucralfate 1 gram tablet 1 g PO TID Qty: 20 0RF omeprazole 40 mg capsule,delayed release(DR/EC) 40 mg PO DAILY Qty: 30 0RF sucralfate [Carafate] 1 gram tablet 1 g PO AC Qty: 90 0RF prochlorperazine [Compazine] 25 mg suppository 25 mg [place] BID PRN (Reason: nausea and vomiting) Qty: 7 0RF sucralfate [Carafate] 100 mg/mL suspension 10 ml PO BID Qty: 420 0RF amoxicillin-pot clavulanate 875-125 mg tablet 1 tab PO BID 10 Days Qty: 20 0RF ondansetron 4 mg tablet,disintegrating 4 mg PO Q6H PRN (Reason: nausea and vomiting) Qty: 14 0RF alum-mag hydroxide-simeth [Maalox Advanced] 200-200-20 mg/5 mL suspension 5 ml PO 5XD PRN (Reason: dyspepsia) Qty: 355 0RF Rx Instructions: administer between meals and at bedtime ondansetron 4 mg tablet,disintegrating 4 mg PO Q6-8H PRN (Reason: nausea and vomiting) Qty: 20 0RF Discharge Date/Time: 10/09/23 08:08 Print Language: Bulgarian
[2023-10-09 07:20] VITALS: BP 125/68; PULSE 84; RESP 16; TEMP 36.9; O2SAT 100
[2023-10-09 07:32] LABS: HCG Quantitative 22587 mIU/mL
[2023-10-09] MEDS: Potassium Chloride ER 20 MEQ TAB.ER.PRT 40 MEQ PO (07:59)
[2023-10-09 08:04] VITALS: BP 123/69; PULSE 95; RESP 16; TEMP 36.5; O2SAT 99
== END 2023-10-09 08:08 | disposition home or self-care (01) ==
PROVIDERS: Physician Assistant; Emergency Provider Emergency Medicine
DX: R11.2 Nausea with vomiting, unspecified (principal); R10.13 Epigastric pain; R10.2 Pelvic and perineal pain; Z79.899 Other long term (current) drug therapy
CPT/HCPCS: 36415; 80053; 84702; 85025; 96374; 96375; 99284; J2405; J7120

== ENCOUNTER 2023-11-03 03:36 | Emergency (ER) | payer MEDICARE, MEDICAID, SELFPAY ==
[2023-11-03 03:40] VITALS: BP 147/78; PULSE 89; RESP 20; TEMP 36.7; O2SAT 98; BMI 22.7
[2023-11-03 03:52] LABS: MANUAL DIFF FLAG NO
[2023-11-03 03:57] LABS: Basophils Percent Auto 0.3 % (0-2); Eosinophils Percent Auto 0.1 % (0-4); Hematocrit 40.5 % (37.0-47.0); Hemoglobin 14.2 g/dl (12.0-16.0); Imm Gran Abs Auto 0.03 X10*3/uL (0.00-0.03); Imm Gran Pct Auto 0.3 % (0.0-0.4); Lymphocytes Absolute Auto 2.4 X10*3/uL (1.2-4.9); Lymphocytes Percent Auto 21.1 % (20-40); Mean Corpuscular HGB Conc 35.1 g/dl (31.0-35.0); Mean Corpuscular Hemoglobin 27.8 pg (27.0-33.0); Mean Corpuscular Volume 79.3 fL (80.0-98.0); Mean Platelet Volume 10.9 fL (9.4-12.3); Monocytes Absolute Auto 0.7 X10*3/uL (0.1-1.2); Monocytes Percent Auto 6.5 % (2-11); Neutrophils Percent Auto 71.7 % (45-73); Platelet Count 301 X10*3/uL (160-400); Red Blood Count 5.11 X10*6/uL (4.20-5.50); Red Cell Distribution Width 13.1 % (11.0-16.0); White Blood Count 11.2 X10*3/uL (4.8-10.8)
[2023-11-03 04:18] LABS: Alanine Aminotransferase 23 U/L (0-31); Albumin Level 4.6 g/dL (3.5-5.0); Alkaline Phosphatase 49 U/L (39-117); Anion Gap 17 (12-20); Aspartate Amino Transferase 24 U/L (5-31); Bilirubin Direct 0.5 mg/dL (0.0-0.5); Bilirubin Total 1.3 mg/dL (0.0-1.0); Blood Urea Nitrogen 7 mg/dL (9-16); Calcium 9.8 mg/dL (8.4-10.2); Carbon Dioxide 23 mmol/L (22-29); Chloride 100 mmol/L (96-108); Creatinine Clr Calc Pharmacy 103.3; Estimated Glomerular Filt Rate > 60; Glucose Random 105 mg/dL (60-115); Lipase 22 U/L (8-78); Potassium 3.8 mmol/L (3.3-5.1); Sodium 136 mmol/L (135-145); Total Protein 7.8 g/dL (6.5-8.0)
[2023-11-03] MEDS: 0.9 % Sodium Chloride 1,000 ML 999 ML IV ×2 (05:50→07:01)
[2023-11-03] MEDS: ondansetron HCL 4 MG/2 ML VIAL IVPUSH (05:51)
[2023-11-03 06:21] VITALS: BP 123/65; PULSE 69; RESP 16; TEMP 36.8; O2SAT 100
--- NOTE | 2023-11-03 06:33 | ED_ITS ---
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 also no significant abdominal pain no diarrhea no fever Related Data Previous Rx's ?Medication ?Instructions ?Recorded ondansetron HCl 4 mg tablet 4 mg PO Q8H PRN nausea and 10/31/20 (Zofran) vomiting #14 tabs omeprazole 40 mg capsule,delayed 40 mg PO DAILY #14 caps 04/18/21 release sucralfate 1 gram tablet 1 g PO TID #20 tabs 04/18/21 omeprazole 40 mg capsule,delayed 40 mg PO DAILY #30 caps 09/07/21 release sucralfate 1 gram tablet 1 g PO TID #90 tabs 09/07/21 omeprazole 40 mg capsule,delayed 40 mg PO DAILY #30 caps 06/11/22 release sucralfate 1 gram tablet (Carafate) 1 g PO AC #90 tabs 06/11/22 ondansetron 4 mg disintegrating 4 mg PO Q8H 4 days #12 tabs 06/15/22 tablet amoxicillin 875 mg-potassium 1 tab PO BID 10 days #20 tabs 03/05/23 clavulanate 125 mg tablet aluminum-mag hydroxide-simethicone 5 ml PO 5XD PRN dyspepsia #355 mL 06/30/23 200 mg-200 mg-20 mg/5 mL oral susp (Maalox Advanced) ondansetron 4 mg disintegrating 4 mg PO Q6H PRN nausea and 06/30/23 tablet vomiting #14 tabs prochlorperazine 25 mg rectal 25 mg [place] BID PRN nausea and 07/04/23 suppository (Compazine) vomiting #7 ea sucralfate 100 mg/mL oral 10 ml PO BID #420 mL 07/05/23 suspension (Carafate) ondansetron 4 mg disintegrating 4 mg PO Q6-8H PRN nausea and 10/08/23 tablet vomiting #20 tabs ondansetron 4 mg disintegrating 4 mg PO Q6-8H PRN nausea and 11/03/23 tablet vomiting #20 tabs pyridoxine (vitamin B6) 25 mg 25 mg PO TID #60 tabs 11/03/23 tablet Allergies Allergy/AdvReac Type Severity Reaction Status Date / Time No Known Allergies Allergy Verified 11/03/23 03:42 [No Known Allergies*] Review of Systems 2 Review of Systems: Yes all other systems are reviewed and are negative [facility] Past Medical History Medical History No known health problems Social History Social History Alcohol intake: never Patient Tobacco Use Status: Tobacco use Unknown Substance Use Type: Marijuana Advance Directives: No Advance Directives Information Provided: Yes Do you have a plan to hurt others: No Plan Physical Exam 2 Vital Signs: Vital Signs: Last Vital Signs Temp 98.3 F 11/03/23 06:21 Pulse 69 11/03/23 06:21 Resp 16 11/03/23 06:21 BP 123/65 11/03/23 06:21 Pulse Ox 100 11/03/23 06:21 O2 Del Method Room Air 11/03/23 06:21 BMI result Body Mass Index 22.7 Appearance: Alert. Oriented X3. No acute distress. ENT: Pharynx normal. Oral Mucosa moist Neck: Normal inspection. Neck supple. CVS: Normal heart rate and rhythm. Pulses normal. Respiratory: No respiratory distress. Equal air entry bilateral, Abdomen: Soft and nontender. Bowel sounds are present, no mass palpable, no CVA tenderness Skin: Skin warm and dry. Normal skin color. Normal skin turgor. Extremities: No lower extremity edema. No calf tenderness Neuro: Oriented X 3. No motor deficit. Medications Administered Generic Name Dose Route Start Last Admin Trade Name Freq PRN Reason Stop Dose Admin Sodium Chloride 1,000 mls @ 999 mls/hr 11/03/23 06:34 11/03/23 07:01 Ns IV 11/03/23 07:34 999 mls/hr .Q1H1M ONE Administration Discontinued Medications Generic Name Dose Route Start Last Admin Trade Name Freq PRN Reason Stop Dose Admin Sodium Chloride 1,000 mls @ 999 mls/hr 11/03/23 05:41 11/03/23 06:59 Ns IV 11/03/23 06:41 Infused .Q1H1M ONE Infusion Ondansetron HCl 4 mg 11/03/23 05:41 11/03/23 05:51 Ondansetron Hcl 4 Mg/2 Ml Vial IVPUSH 11/03/23 05:42 4 mg ONCE ONE Administration Medical Decision Making Medical Decision Making [facility] Narrative: Patient has hyperemesis gravidarum received 2 L of IV fluid discharge patient home taking p.o. fluids in the ER Lab Data [facility] Lab Attestation statement: I reviewed the patient's lab results. 11/03/23 03:48 11/03/23 03:48 Labs: Lab Results 11/03/23 Range/Units 03:48 WBC 11.2 H (4.8-10.8) X10*3/uL RBC 5.11 (4.20-5.50) X10*6/uL Hgb 14.2 (12.0-16.0) g/dl Hct 40.5 (37.0-47.0) % MCV 79.3 L (80.0-98.0) fL MCH 27.8 (27.0-33.0) pg MCHC 35.1 H (31.0-35.0) g/dl RDW 13.1 (11.0-16.0) % Plt Count 301 (160-400) X10*3/uL MPV 10.9 (9.4-12.3) fL Immature Gran % (Auto) 0.3 (0.0-0.4) % Neut % (Auto) 71.7 (45-73) % Lymph % (Auto) 21.1 (20-40) % [place] % (Auto) 6.5 (2-11) % Eos % (Auto) 0.1 (0-4) % Baso % (Auto) 0.3 (0-2) % Lymph # (Auto) 2.4 (1.2-4.9) X10*3/uL [place] # (Auto) 0.7 (0.1-1.2) X10*3/uL Eos # (Auto) 0.0 (0.0-0.4) X10*3/uL Baso # (Auto) 0.0 (0.0-0.2) X10*3/uL Abs Immat Gran (auto) 0.03 (0.00-0.03) X10*3/uL Absolute Neuts (auto) 8.0 (2.0-8.3) x10*3/uL Absolute Nucleated RBC 0.000 (0.0-0.012) X10*3/uL Nucleated RBC % (auto) 0.0 (0.0-0.2) /100WBC Sodium 136 (135-145) mmol/L Potassium 3.8 (3.3-5.1) mmol/L Chloride 100 (96-108) mmol/L Carbon Dioxide 23 (22-29) mmol/L Anion Gap 17 (12-20) BUN 7 L (9-16) mg/dL Creatinine 0.65 (0.5-1.4) mg/dL Estim Creat Clear Calc 103.3 Estimated GFR > 60 Random Glucose 105 (60-115) mg/dL Calcium 9.8 D (8.4-10.2) mg/dL Total Bilirubin 1.3 H (0.0-1.0) mg/dL Direct Bilirubin 0.5 (0.0-0.5) mg/dL AST 24 (5-31) U/L ALT 23 (0-31) U/L Alkaline Phosphatase 49 (39-117) U/L Total Protein 7.8 (6.5-8.0) g/dL Albumin 4.6 (3.5-5.0) g/dL Lipase 22 (8-78) U/L Beta HCG, Quant 26816 mIU/mL Discharge Plan Discharge Clinical Impression: Hyperemesis gravidarum Patient Disposition: Home, Self-Care Instructions: Hyperemesis Gravidarum (ED) Additional Instructions: Drink plenty of fluids Start taking B 6 daily Zofran for severe vomiting Prescriptions: New ondansetron 4 mg tablet,disintegrating 4 mg PO Q6-8H PRN (Reason: nausea and vomiting) Qty: 20 0RF pyridoxine (vitamin B6) 25 mg tablet 25 mg PO TID Qty: 60 0RF No Action ondansetron HCl [Zofran] 4 mg tablet 4 mg PO Q8H PRN (Reason: nausea and vomiting) Qty: 14 0RF omeprazole 40 mg capsule,delayed release(DR/EC) 40 mg PO DAILY Qty: 30 2RF sucralfate 1 gram tablet 1 g PO TID Qty: 90 2RF ondansetron 4 mg tablet,disintegrating 4 mg PO Q8H 4 Days Qty: 12 0RF omeprazole 40 mg capsule,delayed release(DR/EC) 40 mg PO DAILY Qty: 14 0RF sucralfate 1 gram tablet 1 g PO TID Qty: 20 0RF omeprazole 40 mg capsule,delayed release(DR/EC) 40 mg PO DAILY Qty: 30 0RF sucralfate [Carafate] 1 gram tablet 1 g PO AC Qty: 90 0RF prochlorperazine [Compazine] 25 mg suppository 25 mg [place] BID PRN (Reason: nausea and vomiting) Qty: 7 0RF sucralfate [Carafate] 100 mg/mL suspension 10 ml PO BID Qty: 420 0RF amoxicillin-pot clavulanate 875-125 mg tablet 1 tab PO BID 10 Days Qty: 20 0RF ondansetron 4 mg tablet,disintegrating 4 mg PO Q6H PRN (Reason: nausea and vomiting) Qty: 14 0RF alum-mag hydroxide-simeth [Maalox Advanced] 200-200-20 mg/5 mL suspension 5 ml PO 5XD PRN (Reason: dyspepsia) Qty: 355 0RF Rx Instructions: administer between meals and at bedtime ondansetron 4 mg tablet,disintegrating 4 mg PO Q6-8H PRN (Reason: nausea and vomiting) Qty: 20 0RF Print Language: [place]
[2023-11-03 07:24] VITALS: BP 123/65; PULSE 69; RESP 16; TEMP 36.8; O2SAT 100
== END 2023-11-03 07:26 | disposition home or self-care (01) ==
PROVIDERS: Emergency Provider Internal Medicine
DX: O21.0 Mild hyperemesis gravidarum (principal); Z3A.09 9 weeks gestation of pregnancy; Z79.899 Other long term (current) drug therapy
CPT/HCPCS: 36415; 80048; 80076; 83690; 84702; 85025; 96361; 96374; 99284; J2405

== ENCOUNTER 2023-11-29 01:33 | Emergency (ER) | payer MEDICARE, MEDICAID, SELFPAY ==
[2023-11-29 01:34] VITALS: BP 108/70; PULSE 64; RESP 18; TEMP 36.8; O2SAT 99; BMI 21.8
--- NOTE | 2023-11-29 01:53 | ED.GENADULT ---
HPI - General Adult General Chief complaint: Nausea/Vomiting/Diarrhea Stated complaint: vomiting 3 months Time Seen by Provider: 11/29/23 01:53 History of Present Illness ED Provider: Tigist CASTILLO narrative: The patient is a 23-year-old female who is approximately 3 months (she says she is 14 weeks , using [facility]) with her first . She has had some nausea and vomiting associated with this but her nausea and vomiting has gotten much worse over the last 24 hours to the point where she has vomited so much she feels she has chest pain. She also has epigastric pain. The patient has a history of gastritis. She also has a history of cannabis hyperemesis. She has been seen here 3 times during the last 2 months for significant vomiting thought to be associated with her . No fever, sweats, chills. No urinary discomfort. Related Data Previous Rx's ?Medication ?Instructions ?Recorded ondansetron HCl 4 mg tablet 4 mg PO Q8H PRN nausea and 10/31/20 (Zofran) vomiting #14 tabs omeprazole 40 mg capsule,delayed 40 mg PO DAILY #14 caps 04/18/21 release sucralfate 1 gram tablet 1 g PO TID #20 tabs 04/18/21 omeprazole 40 mg capsule,delayed 40 mg PO DAILY #30 caps 09/07/21 release sucralfate 1 gram tablet 1 g PO TID #90 tabs 09/07/21 omeprazole 40 mg capsule,delayed 40 mg PO DAILY #30 caps 06/11/22 release sucralfate 1 gram tablet (Carafate) 1 g PO AC #90 tabs 06/11/22 ondansetron 4 mg disintegrating 4 mg PO Q8H 4 days #12 tabs 06/15/22 tablet amoxicillin 875 mg-potassium 1 tab PO BID 10 days #20 tabs 03/05/23 clavulanate 125 mg tablet aluminum-mag hydroxide-simethicone 5 ml PO 5XD PRN dyspepsia #355 mL 06/30/23 200 mg-200 mg-20 mg/5 mL oral susp (Maalox Advanced) ondansetron 4 mg disintegrating 4 mg PO Q6H PRN nausea and 06/30/23 tablet vomiting #14 tabs prochlorperazine 25 mg rectal 25 mg OK BID PRN nausea and 07/04/23 suppository (Compazine) vomiting #7 ea sucralfate 100 mg/mL oral 10 ml PO BID #420 mL 07/05/23 suspension (Carafate) ondansetron 4 mg disintegrating 4 mg PO Q6-8H PRN nausea and 10/08/23 tablet vomiting #20 tabs ondansetron 4 mg disintegrating 4 mg PO Q6-8H PRN nausea and 11/03/23 tablet vomiting #20 tabs pyridoxine (vitamin B6) 25 mg 25 mg PO TID #60 tabs 11/03/23 tablet ondansetron 4 mg disintegrating 4 mg PO Q6H PRN nausea and 11/29/23 tablet vomiting #10 tabs Allergies Allergy/AdvReac Type Severity Reaction Status Date / Time No Known Allergies Allergy Verified 11/29/23 01:37 [No Known Allergies*] Review of Systems Review of Systems: Yes all other systems are reviewed and are negative [facility] Past Medical History Medical History No known health problems Social History Social History Alcohol intake: never Patient Tobacco Use Status: Tobacco use Unknown Substance Use Type: Marijuana Advance Directives: No Advance Directives Information Provided: No Patient : Yes Physical Exam ED Vital Signs: Vital Signs - 24 hr 11/29/23 01:34 11/29/23 03:46 11/29/23 06:10 Temperature 98.2 F 98.7 F 98.0 F Pulse Rate 64 82 61 Respiratory Rate 18 16 16 Blood Pressure 108/70 106/65 108/69 Pulse Oximetry 99 100 100 Oxygen Delivery Method Room Air Room Air Room Air 11/29/23 07:33 Temperature 98.2 F Pulse Rate 74 Respiratory Rate 18 Blood Pressure 101/51 L Pulse Oximetry 99 Oxygen Delivery Method Room Air BMI result Body Mass Index 21.8 Const Other: The patient is awake and alert and was retching a great deal. HENMT Other: Face is symmetrical. Mucous membranes not obviously dry. Eyes Other: Pupils are round equal, conjunctivae are clear Neck Other: Moving her neck easily Resp Effort & Inspection: normal respiratory effort Auscultation: clear to auscultation bilaterally Cardio Rate: regular rate Rhythm: regular rhythm Heart sounds: S1 normal heart sound present and S2 normal heart sound present GI Other: The abdomen is flat and soft. There is epigastric tenderness. Elsewhere the abdomen seems nontender. Skin Other: Skin is dry and unremarkable. Neuro Other: The patient was awake and alert. She was retching a great deal but otherwise seems to have a normal mental status. Cranial nerves are grossly intact. She moves her extremities normally and appropriately. Extrem Other: No peripheral edema Medications Administered Discontinued Medications Generic Name Dose Route Start Last Admin Trade Name Caitlyn PRN Reason Stop Dose Admin Diphenhydramine HCl 25 mg 11/29/23 01:56 11/29/23 02:08 Diphenhydramine Hcl 50 Mg/Ml Vial IVPUSH 11/29/23 01:57 25 mg ONCE ONE Administration Diphenhydramine HCl 25 mg 11/29/23 02:21 11/29/23 02:24 Diphenhydramine Hcl 50 Mg/Ml Vial IVPUSH 11/29/23 02:22 25 mg ONCE ONE Administration Famotidine 20 mg 11/29/23 01:56 11/29/23 02:08 Famotidine/Pf 20 Mg/2 Ml Vial IVPUSH 11/29/23 01:57 20 mg ONCE ONE Administration Sodium Chloride 1,000 mls @ 999 mls/hr 11/29/23 02:00 11/29/23 03:03 Ns IV 11/29/23 03:00 Infused .Q1H1M MELIZA Infusion Sodium Chloride 1,000 mls @ 999 mls/hr 11/29/23 05:00 11/29/23 06:54 Ns IV 11/29/23 06:00 Infused .Q1H1M MELIZA Infusion Metoclopramide HCl 10 mg 11/29/23 02:20 11/29/23 02:24 Metoclopramide Hcl 10 Mg/2 Ml Vial IVPUSH 11/29/23 02:21 10 mg ONCE ONE Administration Ondansetron HCl 4 mg 11/29/23 04:59 11/29/23 05:57 Ondansetron Hcl 4 Mg/2 Ml Vial IVPUSH 11/29/23 05:00 4 mg ONCE ONE Administration Sucralfate 1 gm 11/29/23 06:49 11/29/23 06:52 Sucralfate 1 Gm Tablet PO 11/29/23 06:50 1 gm ONCE ONE Administration Medical Decision Making Medical Decision Making [facility] Narrative: The patient is a 23-year-old female who reports that she is approximately 14 weeks with the 1st . She has had a lot of nausea and vomiting associated with this . Her nausea and vomiting has been worse over the last 24 hours. She also has a history of gastritis. Laboratory evaluation includes a normal white blood count and differential. Also she has a normal C-reactive protein. Chemistries are not particularly concerning. There is no significant sign of acidosis or obvious dehydration. The patient was initially treated symptomatically with IV fluids, IV diphenhydramine, and IV famotidine. She does not seem to get much relief initially and so was given additional IV diphenhydramine and also 10 mg of IV metoclopramide. Although she fell asleep briefly she again complained of retching and was given 4 mg of IV ondansetron and additional IV fluids. Ultimately her nausea seemed better at which point she complained more of burning in her epigastrium. She was given sucralfate and this seemed to help. The patient will be discharged with a prescription for ondansetron and recommendations to contact her OB office for further recommendations. Despite 2 L of IV normal saline and multiple requests for a urine sample the patient did not feel she could provide a urine sample. Lab Data 11/29/23 02:04 11/29/23 02:04 Labs: Lab Results 11/29/23 Range/Units 02:04 WBC 10.1 (4.8-10.8) X10*3/uL RBC 4.59 (4.20-5.50) X10*6/uL Hgb 13.0 (12.0-16.0) g/dl Hct 36.6 L (37.0-47.0) % MCV 79.7 L (80.0-98.0) fL MCH 28.3 (27.0-33.0) pg MCHC 35.5 H (31.0-35.0) g/dl RDW 13.6 (11.0-16.0) % Plt Count 242 (160-400) X10*3/uL MPV 10.7 (9.4-12.3) fL Immature Gran % (Auto) 0.3 (0.0-0.4) % Neut % (Auto) 69.1 (45-73) % Lymph % (Auto) 25.0 (20-40) % [place] % (Auto) 5.3 (2-11) % Eos % (Auto) 0.1 (0-4) % Baso % (Auto) 0.2 (0-2) % Lymph # (Auto) 2.5 (1.2-4.9) X10*3/uL [place] # (Auto) 0.5 (0.1-1.2) X10*3/uL Eos # (Auto) 0.0 (0.0-0.4) X10*3/uL Baso # (Auto) 0.0 (0.0-0.2) X10*3/uL Abs Immat Gran (auto) 0.03 (0.00-0.03) X10*3/uL Absolute Neuts (auto) 7.0 (2.0-8.3) x10*3/uL Absolute Nucleated RBC 0.000 (0.0-0.012) X10*3/uL Nucleated RBC % (auto) 0.0 (0.0-0.2) /100WBC Sodium 137 (135-145) mmol/L Potassium 3.9 (3.3-5.1) mmol/L Chloride 102 (96-108) mmol/L Carbon Dioxide 20 L (22-29) mmol/L Anion Gap 19 (12-20) BUN 7 L (9-16) mg/dL Creatinine 0.60 (0.5-1.4) mg/dL Estim Creat Clear Calc 122.7 Estimated GFR > 60 Random Glucose 104 (60-115) mg/dL Calcium 10.1 (8.4-10.2) mg/dL Magnesium 1.7 (1.6-2.6) mg/dL Total Bilirubin 0.8 (0.0-1.0) mg/dL Direct Bilirubin 0.2 (0.0-0.5) mg/dL AST 13 (5-31) U/L ALT 7 (0-31) U/L Alkaline Phosphatase 47 (39-117) U/L C-Reactive Protein 0.33 (< or = 0.50) mg/dL Total Protein 7.1 (6.5-8.0) g/dL Albumin 4.1 (3.5-5.0) g/dL Lipase 16 (8-78) U/L Discharge Plan Discharge Clinical Impression: Hyperemesis gravidarum Patient Disposition: Home, Self-Care Additional Instructions: Please rest and take it easy today. Eat simple foods like rice and toast. Some people say that potato chips and lemonade are good during . I have sent a prescription for ondansetron to your pharmacy which you may use as needed for nausea. Please contact your teletype technician's office today to discuss how you have been doing recently and for additional advice to manage your hyperemesis. Get checked again if significantly worse. Prescriptions: New ondansetron 4 mg tablet,disintegrating 4 mg PO Q6H PRN (Reason: nausea and vomiting) Qty: 10 0RF No Action ondansetron HCl [Zofran] 4 mg tablet 4 mg PO Q8H PRN (Reason: nausea and vomiting) Qty: 14 0RF omeprazole 40 mg capsule,delayed release(DR/EC) 40 mg PO DAILY Qty: 30 2RF sucralfate 1 gram tablet 1 g PO TID Qty: 90 2RF ondansetron 4 mg tablet,disintegrating 4 mg PO Q8H 4 Days Qty: 12 0RF omeprazole 40 mg capsule,delayed release(DR/EC) 40 mg PO DAILY Qty: 14 0RF sucralfate 1 gram tablet 1 g PO TID Qty: 20 0RF omeprazole 40 mg capsule,delayed release(DR/EC) 40 mg PO DAILY Qty: 30 0RF sucralfate [Carafate] 1 gram tablet 1 g PO AC Qty: 90 0RF prochlorperazine [Compazine] 25 mg suppository 25 mg OK BID PRN (Reason: nausea and vomiting) Qty: 7 0RF sucralfate [Carafate] 100 mg/mL suspension 10 ml PO BID Qty: 420 0RF amoxicillin-pot clavulanate 875-125 mg tablet 1 tab PO BID 10 Days Qty: 20 0RF ondansetron 4 mg tablet,disintegrating 4 mg PO Q6H PRN (Reason: nausea and vomiting) Qty: 14 0RF alum-mag hydroxide-simeth [Maalox Advanced] 200-200-20 mg/5 mL suspension 5 ml PO 5XD PRN (Reason: dyspepsia) Qty: 355 0RF Rx Instructions: administer between meals and at bedtime ondansetron 4 mg tablet,disintegrating 4 mg PO Q6-8H PRN (Reason: nausea and vomiting) Qty: 20 0RF ondansetron 4 mg tablet,disintegrating 4 mg PO Q6-8H PRN (Reason: nausea and vomiting) Qty: 20 0RF pyridoxine (vitamin B6) 25 mg tablet 25 mg PO TID Qty: 60 0RF Print Language: Azerbaijani
[2023-11-29] MEDS: 0.9 % Sodium Chloride 1,000 ML 999 ML IV ×2 (02:08→05:57)
[2023-11-29] MEDS: diphenhydrAMINE HCL 50 MG/ML VIAL 25 MG IVPUSH ×2 (02:08→02:24)
[2023-11-29] MEDS: Famotidine/PF 20 MG/2 ML VIAL IVPUSH (02:08)
[2023-11-29 02:09] LABS: MANUAL DIFF FLAG NO
[2023-11-29 02:10] LABS: Basophils Percent Auto 0.2 % (0-2); Eosinophils Percent Auto 0.1 % (0-4); Hematocrit 36.6 % (37.0-47.0); Imm Gran Abs Auto 0.03 X10*3/uL (0.00-0.03); Imm Gran Pct Auto 0.3 % (0.0-0.4); Lymphocytes Absolute Auto 2.5 X10*3/uL (1.2-4.9); Mean Corpuscular HGB Conc 35.5 g/dl (31.0-35.0); Mean Corpuscular Hemoglobin 28.3 pg (27.0-33.0); Mean Corpuscular Volume 79.7 fL (80.0-98.0); Mean Platelet Volume 10.7 fL (9.4-12.3); Monocytes Absolute Auto 0.5 X10*3/uL (0.1-1.2); Monocytes Percent Auto 5.3 % (2-11); Neutrophils Percent Auto 69.1 % (45-73); Platelet Count 242 X10*3/uL (160-400); Red Blood Count 4.59 X10*6/uL (4.20-5.50); Red Cell Distribution Width 13.6 % (11.0-16.0); White Blood Count 10.1 X10*3/uL (4.8-10.8)
--- NOTE | 2023-11-29 02:10 | MHC.EDTECH ---
Patient brought from triage,changed into hospital attire,labs obtained and sent to lab.EKG cancelled per Doctor, patient is unable to give a urine at this time,will re-attempt.call ramesh in reach
[2023-11-29] MEDS: Metoclopramide HCl 10 MG/2 ML VIAL IVPUSH (02:24)
[2023-11-29 02:25] LABS: Alanine Aminotransferase 7 U/L (0-31); Albumin Level 4.1 g/dL (3.5-5.0); Alkaline Phosphatase 47 U/L (39-117); Anion Gap 19 (12-20); Aspartate Amino Transferase 13 U/L (5-31); Bilirubin Direct 0.2 mg/dL (0.0-0.5); Bilirubin Total 0.8 mg/dL (0.0-1.0); Blood Urea Nitrogen 7 mg/dL (9-16); C Reactive Protein 0.33 mg/dL (< or = 0.50); Calcium 10.1 mg/dL (8.4-10.2); Carbon Dioxide 20 mmol/L (22-29); Chloride 102 mmol/L (96-108); Creatinine Clr Calc Pharmacy 122.7; Estimated Glomerular Filt Rate > 60; Glucose Random 104 mg/dL (60-115); Lipase 16 U/L (8-78); Potassium 3.9 mmol/L (3.3-5.1); Sodium 137 mmol/L (135-145); Total Protein 7.1 g/dL (6.5-8.0)
[2023-11-29 03:46] VITALS: BP 106/65; PULSE 82; RESP 16; TEMP 37.1; O2SAT 100
--- NOTE | 2023-11-29 03:47 | MHC.EDTECH ---
Hourly rounds and vitals completed,patient is resting comfortably,call ramesh in reach
--- NOTE | 2023-11-29 03:51 | MHC.EDTECH ---
Call brother in law for ride home,[place] [phone]
[2023-11-29 05:14] LABS: Magnesium 1.7 mg/dL (1.6-2.6)
[2023-11-29] MEDS: ondansetron HCL 4 MG/2 ML VIAL IVPUSH (05:57)
--- NOTE | 2023-11-29 06:03 | PC.NURSE ---
pt given silvina sherice and apple juice as requested, tolerated well, however says her stomach hurts and feels very acidic from vomiting. pt still unable to give urine sample, MD aware. ordering second liter bolus of fluids. call ramesh within reach, plan of care ongoing
[2023-11-29 06:10] VITALS: BP 108/69; PULSE 61; RESP 16; TEMP 36.7; O2SAT 100
--- NOTE | 2023-11-29 06:10 | MHC.EDTECH ---
Hourly rounds and vitals completed,attempted to get a urine,patient is unable to give sample at this time stated I will let you know when I have to go RN and provider made aware
[2023-11-29] MEDS: Sucralfate 1 GM TABLET PO (06:52)
--- NOTE | 2023-11-29 07:29 | PC.NURSE ---
this RN resumed care of pt at 0645. a&ox4. vss and up to date. pt reporting medication administered by previous RN was effective. pt requesting to leave. notified/aware. working on d/c paperwork. also okay that urine sample will not be obtained as pt is refusing to supply urine sample at this time.
[2023-11-29 07:33] VITALS: BP 101/51; PULSE 74; RESP 18; TEMP 36.8; O2SAT 99
[2023-11-29 07:44] VITALS: BP 101/51; PULSE 74; RESP 18; TEMP 36.8; O2SAT 99
== END 2023-11-29 07:44 | disposition home or self-care (01) ==
PROVIDERS: Emergency Provider Emergency Medicine
DX: O21.0 Mild hyperemesis gravidarum (principal); Z3A.14 14 weeks gestation of pregnancy
CPT/HCPCS: 36415; 80048; 80076; 83690; 83735; 85025; 86140; 96361; 96374; 96375; 96376; 99284; J1200; J2405; J2765

== ENCOUNTER 2024-06-20 07:53 | Emergency (ER) | payer MEDICARE, MEDICAID, SELFPAY ==
[2024-06-20 08:46] VITALS: BP 106/69; PULSE 75; RESP 16; TEMP 36.6; O2SAT 100; BMI 28.7
[2024-06-20 08:59] LABS: MANUAL DIFF FLAG NO
[2024-06-20 09:00] LABS: Basophils Percent Auto 0.6 % (0-2); Eosinophils Absolute Auto 0.3 X10*3/uL (0.0-0.4); Eosinophils Percent Auto 4.3 % (0-4); Hemoglobin 12.8 g/dl (12.0-16.0); Imm Gran Abs Auto 0.02 X10*3/uL (0.00-0.03); Imm Gran Pct Auto 0.3 % (0.0-0.4); Lymphocytes Absolute Auto 1.9 X10*3/uL (1.2-4.9); Mean Corpuscular Hemoglobin 25.4 pg (27.0-33.0); Mean Corpuscular Volume 79.5 fL (80.0-98.0); Mean Platelet Volume 11.4 fL (9.4-12.3); Monocytes Absolute Auto 0.6 X10*3/uL (0.1-1.2); Neutrophils Absolute Auto 4.2 x10*3/uL (2.0-8.3); Neutrophils Percent Auto 59.8 % (45-73); Platelet Count 249 X10*3/uL (160-400); Red Blood Count 5.03 X10*6/uL (4.20-5.50); Red Cell Distribution Width 13.6 % (11.0-16.0)
[2024-06-20 09:13] LABS: Alanine Aminotransferase 18 U/L (0-31); Alkaline Phosphatase 85 U/L (39-117); Anion Gap 10 (12-20); Aspartate Amino Transferase 20 U/L (5-31); Bilirubin Total 0.5 mg/dL (0.0-1.0); Blood Urea Nitrogen 10 mg/dL (9-16); Calcium 9.3 mg/dL (8.4-10.2); Carbon Dioxide 25 mmol/L (22-29); Chloride 108 mmol/L (96-108); Creatinine Clr Calc Pharmacy 133.9; Estimated Glomerular Filt Rate > 60; Glucose Random 105 mg/dL (60-115); Potassium 4.1 mmol/L (3.3-5.1); Sodium 139 mmol/L (135-145); Total Protein 7.5 g/dL (6.5-8.0)
[2024-06-20 10:46] VITALS: BP 134/63; PULSE 84; RESP 16; TEMP 37.1; O2SAT 100
--- NOTE | 2024-06-20 14:11 | ED.GENADULT ---
HPI - General Adult General Chief complaint: General Medical Stated complaint: Lip swelling Time Seen by Provider: 06/20/24 13:51 Source: patient Mode of arrival: ambulatory Limitations: no limitations History of Present Illness ED Provider: Dexter Thompson HPI narrative: 23 Yold female with no pmh presents to the ED for Right lower lip swelling after popping a pimple last night. patient denies any drooling, change in voice, throat throat, fever, chills, chest pain, shortness of breath. Patient denies any leg swelling or calf pain. Patient denies any recent dental work Related Data Previous Rx's ?Medication ?Instructions ?Recorded ondansetron HCl 4 mg tablet 4 mg PO Q8H PRN nausea and 10/31/20 (Zofran) vomiting #14 tabs omeprazole 40 mg capsule,delayed 40 mg PO DAILY #14 caps 04/18/21 release sucralfate 1 gram tablet 1 g PO TID #20 tabs 04/18/21 omeprazole 40 mg capsule,delayed 40 mg PO DAILY #30 caps 09/07/21 release sucralfate 1 gram tablet 1 g PO TID #90 tabs 09/07/21 omeprazole 40 mg capsule,delayed 40 mg PO DAILY #30 caps 06/11/22 release sucralfate 1 gram tablet (Carafate) 1 g PO AC #90 tabs 06/11/22 ondansetron 4 mg disintegrating 4 mg PO Q8H 4 days #12 tabs 06/15/22 tablet amoxicillin 875 mg-potassium 1 tab PO BID 10 days #20 tabs 03/05/23 clavulanate 125 mg tablet aluminum-mag hydroxide-simethicone 5 ml PO 5XD PRN dyspepsia #355 mL 06/30/23 200 mg-200 mg-20 mg/5 mL oral susp (Maalox Advanced) ondansetron 4 mg disintegrating 4 mg PO Q6H PRN nausea and 06/30/23 tablet vomiting #14 tabs prochlorperazine 25 mg rectal 25 mg AL BID PRN nausea and 07/04/23 suppository (Compazine) vomiting #7 ea sucralfate 100 mg/mL oral 10 ml PO BID #420 mL 07/05/23 suspension (Carafate) ondansetron 4 mg disintegrating 4 mg PO Q6-8H PRN nausea and 10/08/23 tablet vomiting #20 tabs ondansetron 4 mg disintegrating 4 mg PO Q6-8H PRN nausea and 11/03/23 tablet vomiting #20 tabs pyridoxine (vitamin B6) 25 mg 25 mg PO TID #60 tabs 11/03/23 tablet ondansetron 4 mg disintegrating 4 mg PO Q6H PRN nausea and 11/29/23 tablet vomiting #10 tabs cephalexin 500 mg capsule 500 mg PO QID 7 days #28 caps 06/20/24 doxycycline hyclate 100 mg capsule 100 mg PO BID 7 days #14 caps 06/20/24 Allergies Allergy/AdvReac Type Severity Reaction Status Date / Time No Known Allergies Allergy Verified 06/20/24 08:47 [No Known Allergies*] Review of Systems Review of Systems: Right lower lip swelling Yes all other systems are reviewed and are negative [facility] Past Medical History Medical History No known health problems Social History Social History Alcohol intake: never Patient Tobacco Use Status: Tobacco use Unknown Substance Use Type: Marijuana Advance Directives: No Advance Directives Information Provided: Yes Do you have a plan to hurt others: No Plan Physical Exam ED Vital Signs: Vital Signs - 24 hr 06/20/24 08:46 06/20/24 10:46 06/20/24 14:54 Temperature 97.8 F 98.7 F 98.7 F Pulse Rate 75 84 84 Respiratory Rate 16 16 16 Blood Pressure 106/69 134/63 134/63 Pulse Oximetry 100 100 100 Oxygen Delivery Method Room Air Room Air Room Air BMI result Body Mass Index 28.7 Const General: cooperative, healthy appearing, comfortable, no acute distress, well developed, alert, awake and Physically active Orientation/consciousness: patient oriented x3 HENMT Head: Yes normal to inspection, Yes No palpable skull fracture present, Yes normocephalic and Yes atraumatic Nose image: 1. Swelling and tenderness on palpation. Negative for fluctuance. Inner oral exam negative for any tongue swelling, tongue floor swelling, dental caries, trismus, or signs of peritonsillar abscess. 2. Pimple with no active drainage. Eyes General: appearance normal, both eyes and all related structures Neck Neck: Yes normal visual inspection, Yes full ROM, Yes no lymphadenopathy, Yes no meningeal signs, Yes trachea midline, Yes supple, No anterior neck swelling and No tender Chest Chest palpation & inspection: normal inspection of the chest and normal palpation of entire chest wall Resp Effort & Inspection: normal respiratory effort and able to speak in complete sentences Auscultation: clear to auscultation bilaterally Cardio Jugular venous distension: no JVD Heart sounds: S1 normal heart sound present and S2 normal heart sound present GI Inspection: Yes normal to inspection Palpation (GI): Soft to palpation, not firm, nontender, no guarding and not rigid General: Yes no CVA tenderness Back/Spine/Pelvis Back: no CVA tenderness and No ecchymosis Skin General skin exam: no rashes or lesions noted, elasticity normal and turgor normal Neuro General: patient oriented x3, gait normal, tone normal, moves all extremities, Normal light touch and pain sensation, no meningeal signs, no focal motor deficits and CN's II-XI intact bilaterally Extrem General: Yes normal to inspection, Yes full ROM and Yes capillary refill normal Psych Appearance: grossly normal, well kempt and not disheveled Medical Decision Making Medical Decision Making MDM Narrative: 23-year-old female with right lower lip swelling due to popping pimple. Negative for sore throat, drooling, or change in voice. Patient is speaking in clear sentences. Negative for any neck or jaw swelling. Not suspecting retropharyngeal abscess, peritonsillar abscess, Neville's angina, or any other life-threatening etiology. Patient is educated on warm compresses and oral antibiotics. Patient explained worrisome signs and informed to return to the ED immediately. Differential Diagnosis Differential Diagnoses: The differential diagnosis associated with the presentation includes (Cellulitis) Admission/Observation Consideration of admission/observation: Escalation of care including admission/observation considered Lab Data [facility] Lab Attestation statement: I reviewed the patient's lab results. 06/20/24 08:55 06/20/24 08:55 Labs: Lab Results 06/20/24 Range/Units 08:55 WBC 7.0 (4.8-10.8) X10*3/uL RBC 5.03 (4.20-5.50) X10*6/uL Hgb 12.8 (12.0-16.0) g/dl Hct 40.0 (37.0-47.0) % MCV 79.5 L (80.0-98.0) fL MCH 25.4 L (27.0-33.0) pg MCHC 32.0 (31.0-35.0) g/dl RDW 13.6 (11.0-16.0) % Plt Count 249 (160-400) X10*3/uL MPV 11.4 (9.4-12.3) fL Immature Gran % (Auto) 0.3 (0.0-0.4) % Neut % (Auto) 59.8 (45-73) % Lymph % (Auto) 27.0 (20-40) % [place] % (Auto) 8.0 (2-11) % Eos % (Auto) 4.3 H (0-4) % Baso % (Auto) 0.6 (0-2) % Lymph # (Auto) 1.9 (1.2-4.9) X10*3/uL [place] # (Auto) 0.6 (0.1-1.2) X10*3/uL Eos # (Auto) 0.3 (0.0-0.4) X10*3/uL Baso # (Auto) 0.0 (0.0-0.2) X10*3/uL Abs Immat Gran (auto) 0.02 (0.00-0.03) X10*3/uL Absolute Neuts (auto) 4.2 (2.0-8.3) x10*3/uL Absolute Nucleated RBC 0.000 (0.0-0.012) X10*3/uL Nucleated RBC % (auto) 0.0 (0.0-0.2) /100WBC Sodium 139 (135-145) mmol/L Potassium 4.1 (3.3-5.1) mmol/L Chloride 108 (96-108) mmol/L Carbon Dioxide 25 (22-29) mmol/L Anion Gap 10 L (12-20) BUN 10 (9-16) mg/dL Creatinine 0.59 (0.5-1.4) mg/dL Estim Creat Clear Calc 133.9 Estimated GFR > 60 Random Glucose 105 (60-115) mg/dL Calcium 9.3 D (8.4-10.2) mg/dL Total Bilirubin 0.5 (0.0-1.0) mg/dL AST 20 (5-31) U/L ALT 18 (0-31) U/L Alkaline Phosphatase 85 (39-117) U/L Total Protein 7.5 (6.5-8.0) g/dL Albumin 4.0 (3.5-5.0) g/dL Independent Historian Clinical information obtained from an independent historian. History obtained from or confirmed by: Other (Patient is) Discharge Plan Discharge Clinical Impression: Cellulitis, Skin pimple Patient Disposition: Home, Self-Care Instructions: Cellulitis (ED), Blister (ED), Warm Compress or Soak (ED) Additional Instructions: Recommend warm compress on right lower lid 4 times a day for 15 minutes. You will be discharged with antibiotics. Return to the ED immediately for increased swelling, drooling, change in voice, neck swelling, chest pain, shortness of breath, or any other concerning symptoms. Prescriptions: New cephalexin 500 mg capsule 500 mg PO QID 7 Days Qty: 28 0RF doxycycline hyclate 100 mg capsule 100 mg PO BID 7 Days Qty: 14 0RF No Action ondansetron HCl [Zofran] 4 mg tablet 4 mg PO Q8H PRN (Reason: nausea and vomiting) Qty: 14 0RF omeprazole 40 mg capsule,delayed release(DR/EC) 40 mg PO DAILY Qty: 30 2RF sucralfate 1 gram tablet 1 g PO TID Qty: 90 2RF ondansetron 4 mg tablet,disintegrating 4 mg PO Q8H 4 Days Qty: 12 0RF omeprazole 40 mg capsule,delayed release(DR/EC) 40 mg PO DAILY Qty: 14 0RF sucralfate 1 gram tablet 1 g PO TID Qty: 20 0RF omeprazole 40 mg capsule,delayed release(DR/EC) 40 mg PO DAILY Qty: 30 0RF sucralfate [Carafate] 1 gram tablet 1 g PO AC Qty: 90 0RF prochlorperazine [Compazine] 25 mg suppository 25 mg AL BID PRN (Reason: nausea and vomiting) Qty: 7 0RF sucralfate [Carafate] 100 mg/mL suspension 10 ml PO BID Qty: 420 0RF amoxicillin-pot clavulanate 875-125 mg tablet 1 tab PO BID 10 Days Qty: 20 0RF ondansetron 4 mg tablet,disintegrating 4 mg PO Q6H PRN (Reason: nausea and vomiting) Qty: 14 0RF alum-mag hydroxide-simeth [Maalox Advanced] 200-200-20 mg/5 mL suspension 5 ml PO 5XD PRN (Reason: dyspepsia) Qty: 355 0RF Rx Instructions: administer between meals and at bedtime ondansetron 4 mg tablet,disintegrating 4 mg PO Q6-8H PRN (Reason: nausea and vomiting) Qty: 20 0RF ondansetron 4 mg tablet,disintegrating 4 mg PO Q6-8H PRN (Reason: nausea and vomiting) Qty: 20 0RF pyridoxine (vitamin B6) 25 mg tablet 25 mg PO TID Qty: 60 0RF ondansetron 4 mg tablet,disintegrating 4 mg PO Q6H PRN (Reason: nausea and vomiting) Qty: 10 0RF Stand Alone Forms: Work/School Release Interventions: ED Discharge Assessment Last Done: 06/20/24 14:54 Discharge Date/Time: 06/20/24 14:54 Print Language: [place]ian
--- OUTSIDE RECORDS SUMMARY | 2024-06-20 14:30 | XMS_ITS | Continuity of Care Document ---
Author Organization [facility] Address [address] [place] [address]- Care Team Providers Care Dairy Husbandry Teacher Name Role Phone Vivienne BEAVERS, Marcie Primary Care Physician [place] [facility] [place]07/24 - 06/12/[address] [address] Attending Physician: Molly Gil DO Admitting Physician: Molly Gil DO Referring Physician: Storm Salter MD Encounter Type: Pre-OutPatient One Time Allergies, Adverse Reactions, Alerts Substance Criticality Severity Reaction Reaction Severity Status Other Food Allergy 1 Active 1Pickels Immunizations Given and Recorded Vaccine Date Status Refusal Reason tetanus/diphtheria/pertussis, acel(Tdap) 03/11/24 Given tetanus/diphtheria/pertussis, acel(Tdap) 08/06/14 Recorded Human Papillomavirus Vaccine 08/06/14 Recorded hepatitis B pediatric vaccine 01/20/11 Recorded hepatitis B pediatric vaccine 07/13/09 Recorded hepatitis B pediatric vaccine 12/02/08 Recorded Medications acetaminophen 325 mg oral tablet 650 mg, 2, tablet, By Mouth, Every 6 hours, PRN, # 30 tablet, Refills 0, Tot. Refills 0, Maintenance, as needed for fever, 05/15/24 7:07:00 AM EST, Route to Pharmacy Electronically, [facility]/pharmacy #[id number], Partial fill upon patient request if the prescription is for a schedule II opioid drug., 155, cm, 05/15/24 0:16:00 EST, Height, 76.2, kg, 05/13/24 8:00:00 EST, Dry Weight Start Date: 05/15/24 Status: Ordered Quantity: 30.0 Unit: tablet Repeat number: 1 Maegan 0.35 mg oral tablet 1 tablet = 0.35 mg, By Mouth, Daily, # 84 tablet, 4 Refills, Maintenance, 05/15/24 2:49:00 PM EST, Tablet, [id number], Partial fill upon patient request if the prescription is for a schedule II opioid drug., 155, cm, 05/15/24 8:08:00 EST, Height, 76.2, kg, 05/13/24 8:00:00 EST, Dry Weight Start Date: 05/15/24 Status: Ordered Quantity: 84.0 Unit: tablet Repeat number: 5 famotidine 20 mg oral tablet 20 mg, 1, tablet, By Mouth, Daily at bedtime, # 60 tablet, Refills 3, Tot. Refills 3, Maintenance, 10/16/23 5:13:00 PM EDT, Route to Pharmacy Electronically, [facility]/pharmacy #[id number], Partial fill upon patient request if the prescription is for a schedule II opioid drug., 55.6, kg, 10/16/23 12:50:00 EDT, Dry Weight Start Date: 10/16/23 Status: Ordered Quantity: 60.0 Unit: tablet Repeat number: 4 ibuprofen 600 mg oral tablet 600 mg, 1, tablet, By Mouth, Every 6 hours, # 50 tablet, Refills 0, Tot. Refills 0, Maintenance, 05/15/24 7:06:00 AM EST, Route to Pharmacy Electronically, [id number], Partial fill upon patient request if the prescription is for a schedule II opioid drug., 155, cm, 05/15/24 0:16:00 EST, Height, 76.2, kg, 05/13/24 8:00:00 EST, Dry Weight Start Date: 05/15/24 Status: Ordered Quantity: 50.0 Unit: tablet Repeat number: 1 M-Mica Plus oral tablet 1 tablet, By Mouth, Daily, # 90 tablet, 3 Refills, Maintenance, 12/20/23 1:51:00 PM EDT, [id number], Partial fill upon patient request if the prescription is for a schedule II opioid drug., 1 tablet By Mouth Daily, 155, cm, 12/20/23 12:51:00 EDT, Height, 56.9, kg, 10/24/23 13:43:00 EDT, Dry Weight Start Date: 12/20/23 Status: Ordered Quantity: 90.0 Unit: tablet Repeat number: 4 metronidazole topical 0.75% gel with applicator 1 applicator, Vaginally, Daily at bedtime, # 70 Gm, 0 Refills, Maintenance, 03/25/24 4:01:00 PM EST, Gel, [id number], Partial fill upon patient request if the prescription is for a schedule II opioid drug., 1 applicator Vaginally Daily at bedtime,x5 days, 155, cm, 03/25/24 15:41:00 EST, Height, 56.9, kg, 10/24/23 13:43:00 EDT, Dry Weight Start Date: 03/25/24 Stop Date: 03/30/24 Status: Ordered Quantity: 70.0 Unit: g Repeat number: 1 Problem List Condition Confirmation Course Effective Dates Status Health St atus Informant Alpha thalassemia silent carrier Confirmed Active growth restriction antepartum Confirmed Active GERD (gastroesophageal reflux disease) Confirmed Active Alpha thalassemia silent carrier Confirmed Active Social History Social History Type Response Smoking Status Never (less than 100 in lifetime) entered on: 05/04/24 Sex Sex Representation Female (finding) Patient Care team information Care Team Related Persons Name: ALONSO HARRIS Name: SHELIA SANTOS Insurance Providers Guarantor name: MONALISA Health Plan Information #: 2 Payer: [facility] Member Number: [id number] Policy Number: NA Group Number: MONALISA Health Plan Information #: 1 Payer: MEDICARE PART B OUTPT Member Number: [id number] Policy Number: NA Group Number: NA
--- OUTSIDE RECORDS SUMMARY | 2024-06-20 14:30 | XMS_ITS | Clinical Summary ---
Author Organization [facility] Address [address] [place] [address] Care Team Providers Care Terminal System Operator Name Role Phone Unavailable Primary Care Provider Unavailabl e Allergies No known active allergies Medications Omeprazole 20 MG tablet delayed-release Take 20 mg by mouth 2 times daily. 60 tablet 2 07/03/2023 Active sucralfate (Carafate) 1 GM/10ML suspension TAKE 10 ML'S TWICE A DAY 07/05/2023 Active Active Problems No known active problems Encounters Date Type Department Care Team Description 04/14/2024 Telephone [facility] [address] [place], [place] [id number] Haseeb Mullins MD New PT from Last 3 Months Immunizations Name Administration Dates Next Due DTaP 01/20/2011,12/02/2008 DTaP, 5 pertussis antigens 07/13/2009 HPV 9-Valent 08/06/2014 HPV, Unspecified 10/06/2014 Hep B, Adolescent or Pediatric 01/20/2011,2009,12/02/2008 IPV 02/21/2011,07/13/2009,12/02/2008 Influenza injectable quadriv alent preservative free 02/21/2011 MMR 07/13/2009,12/02/2008 Meningococcal [id number] 08/06/2014 Tdap 08/06/2014 Varicella 01/20/2011,12/02/2008 Family History Medical History Relation Name Comments Colon polyps Maternal Grandmother Relation Name Status Comments Maternal Grandmother Social History Tobacco Use Types Packs/Day Years Used Date Smoking Tobacco: Never Passive Smoke Exposure: Never Smokeless Tobacco: Never Tobacco Cessation:Counseling Given: Not Answered Alcohol Use Standard Drinks/Week Comments Yes 0 (1 standard drink = 0.6 oz pur e alcohol) Comments Unknown Sex and Gender Information Value Date Recorded Sex Assigned at Female 02/27/2022 10:30 AM EDT Legal Sex Female 10:30 AM EDT Gender Identity Female 02/27/2022 10:30 AM EDT Sexual Orientation Choose not to disclose 2021 10:30 AM EDT Last Filed Vital Signs Vital Sign Reading Time Taken Comments Blood Pressure 124/74 07/03/2023 3:03 PM EST Pulse 64 07/03/2023 3:03 PM EST Temperature 36.7 ??C (98.1 ??F) 07/03/2023 3:03 PM ES T Respiratory Rate 16 07/03/2023 3:03 PM EST Oxygen Saturation 99% 07/03/2023 3:03 PM EST Inhaled Oxygen Concentration - - Weight 55.3 kg (122 lb) 07/03/2023 3:03 PM EST Height 154.9 cm (5' 1 ) 07/03/2023 3:03 PM EST Body Mass Index 23.05 07/03/2023 3:03 PM EST Plan of Treatment Health Maintenance Due Date Last Done Comments Depression Screening 2002 HIV Screening 2002 SDOH Screening 2002 Alcohol/Substance Use Screening 2014 HPV Vaccines (3 - 2-dose series) 02/05/2015 10/06/2014, 08/06/2014, 08/06/2014 Family Planning (PISQ) 2017 Dental Oral Exam 09/23/2019 03/24/2019, 02/20/2018 Dental Prophylaxis 09/23/2019 03/24/2019, 02/20/2018 Dental X-Ray: Bitewings 03/25/2020 03/24/2019, 02/20 Hepatitis C Screening 2020 Dental X-Ray: Full Mouth 02/21/2021 02/20/2018 Pap Smear 10/18/2023 COVID-19 Vaccine ( season) 2023 Chlamydia and Gonorrhea Screening 12/30/2023 12/29/2022 Influenza Vaccine (#1) 2023 02/21/2011 Tobacco Screening 07/02/2024 07/03/2023 DTaP/Tdap/Td Vaccines (6 - Td or Tdap) 03/11/2034 03/11/2024, 08/06/2014, 01/20/2011, Additional history exists Zoster Vaccines (1 of 2) 2052 RSV Patients and Patients Aged 60 years or older (1 - 1-dose 75+ series) 2077 Hepatitis B Vaccines Completed 01/20/2011, 07/13/2009, 12/02/2008 IPV Vaccines Completed 02/21/2011, 06/28, 12/02/2008 Meningococcal Vaccine Aged Out 08/06/2014 No carina rj eligible based on patient's age to complete this topic HIB Vaccines Aged Out No longer eligi ble based on patient's age to complete this topic Hepatitis A Vaccines Aged Out No long er eligible based on patient's age to complete this topic Pneumococcal Vaccine: Pediatrics (0 to 5 Years) and At-Risk Patients (6 to 49) Years) Aged Out No longer eligible based on patient's age to complete this topic RSV under 20 months Aged Out No longe r eligible based on patient's age to complete this topic Rotavirus Vaccines Aged Out No longer eligible based on patient's age to complete this topic Procedures Procedure Name Priority Date/Time Associated Diagnosis Comments CHLAMYDIA/N. GONORRHOEAE RNA, TMA, UROGENITAL Routine 12/29/2022 2:25 PM EDT Pelvic pain PROPHYLAXIS - ADULT Routine 03/24/2019 1 2:00 AM EST BITEWINGS - 4 RADIOGRAPHIC IMAGES Routine 03/24/2019 12:00 AM EST PERIODIC ORAL EVALUATION - ESTABLISHED PATIENT Routine 03/24/2019 12:00 AM EST INTRAORAL - COMPLETE SERIES OF RADIOGRAPHIC IMAGES Routine 02/20/2018 12:00 AM EDT from Last 3 Months or Most Recently Relevant to Health Maintenance Results * Chlamydia/N. Gonorrhoeae RNA, TMA, Urogenitial (12/29/2022 2:25 PM EDT) CT PCR NOT DETECTED Not Detect. [facility] Comment:A not detected test result does not exclude the possibilityof infection because test results can be affected byimproper specimen collection, concurrent antibiotic therapy,or the number of organisms in the specimen which may bebelow the sensitivity of the test. As with many diagnostictests, results from the Xpert CT/NG assay should beinterpreted in conjunction with other laboratory andclinical data available to the clinician.Xpert CT/NG performance has not been evaluated in patientsless than 14 years of age. The assay should not be used forthe evaluationof suspected sexual abuse or for other medico-legalindications. Additional testing is recommended in anycircumstance when false positive or false negative resultscould lead to adverse medical, social or psychologicalconsequences. NG PCR NOT DETECTED Not Detect. [facility] Comment:A not detected test result does not exclude the possibilityof infection because test results can be affected byimproper specimen collection, concurrent antibiotic therapy,or the number of organisms in the specimen which may bebelow the sensitivity of the test. As with many diagnostictests, results from the Xpert CT/NG assay should beinterpreted in conjunction with other laboratory andclinical data available to the clinician.Xpert CT/NG performance has not been evaluated in patientsless than 14 years of age. The assay should not be used forthe evaluationof suspected sexual abuse or for other medico-legalindications. Additional testing is recommended in anycircumstance when false positive or false negative resultscould lead to adverse medical, social or psychologicalconsequences. Swab Vaginal structure / Unknown 12/29/2022 2:25 PM EDT 12/29/2022 6:24 PM EDT Narrative [facility] - 12/30/2022 7:25 AM EDT Vaginal Cindy Bhagat [facility] MICROBIOLOGY - GENERAL ORDERABLES Final Result [facility] [address] [place] [address] [phone] from Last 3 Months or Most Recently Relevant to Health Maintenance Insurance [facility] STANDARD [facility] MEDICAID STAND ADULT
--- OUTSIDE RECORDS SUMMARY | 2024-06-20 14:30 | XMS_ITS | Continuity of Care Document ---
Author Organization [facility] Address [address] [place] [address]- Care Team Providers Care Commercial Title Examiner Name Role Phone Vivienne BEAVERS, Marcie Primary Care Physician [place] [facility] [place] - 06/12/[address] [address] Attending Physician: Molly Gil DO Admitting Physician: [...] 7:07:00 AM EST, Route to Pharmacy Electronically, [facility]/pharmacy #[id number], Partial fill upon patient request if the [...] 5:13:00 PM EDT, Route to Pharmacy Electronically, [facility]/pharmacy #[id number], Partial fill upon patient request if [...] Maintenance, 03/25/24 4:01:00 PM EST, Gel, [id number], Partial fill upon patient request if the [...] MONALISA Health Plan Information #: 2 Payer: [facility] Member Number: [id number] Policy Number: NA Group Number: MONALISA Health Plan Information #: 1 Payer: MEDICARE PART B OUTPT Member Number: [id number] Policy Number: NA Group Number: NA
--- OUTSIDE RECORDS SUMMARY | 2024-06-20 14:30 | XMS_ITS | Continuity of Care Document ---
Author Organization [facility] Address [address] [place] [address]- Care Team Providers Care Rehab Director Occupational Therapist Name Role Phone Vivienne BEAVERS, Marcie Primary Care Physician Encounter [facility] [place] Date(s): 02/13/24 - 06/12/[address] [address]- Attending Physician: Not on Staff, Attending MD Encounter Type: Pre-OutPatient One Time Allergies, [...] 7:07:00 AM EST, Route to Pharmacy Electronically, [facility]/pharmacy #[id number], Partial fill upon patient request if the [...] 5:13:00 PM EDT, Route to Pharmacy Electronically, [facility]/pharmacy #[id number], Partial fill upon patient request [...] Maintenance, 03/25/24 4:01:00 PM EST, Gel, [id number], Partial fill upon patient request [...] MONALISA Health Plan Information #: 2 Payer: [employer] Member Number: [id number] Policy Number: MONALISA Group Number: MONALISA Health Plan Information #: 1 Payer: MEDICARE PART B OUTPT Member Number: [id number] Policy Number: MONALISA Group Number: MONALISA
--- OUTSIDE RECORDS SUMMARY | 2024-06-20 14:30 | XMS_ITS | Continuity of Care Document ---
Author Organization [facility] Address [address] [place] [address]- Care Team Providers Care Construction Crew Member Name Role Phone Marcie Palafox MD Primary Care Physician [id number] Date[facility] 05/09/24 - 06/14/[address] [address]- Attending Physician: Molly Gil DO Admitting Physician: Molly Gil DO Referring Physician: Storm Salter MD Encounter Type: Pre-Outpt Allergies, Adverse Reactions, Alerts Substance Criticality Severity [...] 7:07:00 AM EST, Route to Pharmacy Electronically, [facility]/pharmacy #[id number], Partial fill upon patient request if the [...] Refills, Maintenance, 05/15/24 2:49:00 PM EST, Tablet, [facility]/pharmacy #[id number], Partial fill upon patient request if [...] 5:13:00 PM EDT, Route to Pharmacy Electronically, [facility]/pharmacy #[id number], Partial fill upon patient request if [...] 7:06:00 AM EST, Route to Pharmacy Electronically, [facility]/pharmacy #[id number], Partial fill upon patient request if the prescription is for a schedule II opioid drug., 155, cm, 05/15/24 0:16:00 EST, Height, 76.2, kg, 05/13/24 8:00:00 EST, Dry Weight Start Date: 05/15/24 Status: Ordered Quantity: 50.0 Unit: tablet Repeat number: 1 M- Plus oral tablet 1 tablet, By Mouth, [...] Guarantor name: MONALISA Health Plan Information #: 1 Payer: MEDICARE PART B OUTPT Member Number: [id number] Policy Number: NA Group Number: MONALISA Health Plan Information #: 2 Payer: [facility] Member Number: [id number] Policy Number: NA Group Number: NA
--- OUTSIDE RECORDS SUMMARY | 2024-06-20 14:30 | XMS_ITS | Continuity of Care Document ---
Author Organization [facility] Address [address] [place] [address]- Care Team Providers Care Automatic Fancy Machine Operator Name Role Phone Vivienne BEAVERS, Marcie Primary Care Physician [place] [facility] [place] Date(s): 02/20/24 - 06/19/[address] [address]- Attending Physician: Not on Staff, Attending MD [...] 7:07:00 AM EST, Route to Pharmacy Electronically, [facility]/pharmacy #[id number], Partial fill upon patient request if the [...] 5:13:00 PM EDT, Route to Pharmacy Electronically, [facility]/pharmacy #[id number], Partial fill upon patient request if [...] Payer: MEDICARE PART B OUTPT Member Number: [id number] Policy Number: NA Group Number: MONALISA Health Plan Information #: 2 Payer: [facility] Member Number: [id number] Policy Number: NA Group Number: MONALISA
--- OUTSIDE RECORDS SUMMARY | 2024-06-20 14:30 | XMS_ITS | Continuity of Care Document ---
Author Organization [facility] Address [address] [place] [address]- Care Team Providers Care Picker Packer Name Role Phone Vivienne BEAVERS, Marcie Primary Care Physician [phone] Encounter [facility] [place] Date(s): 02/06/24 - 06/05/[address] [address]- Attending Physician: Not on Staff, Attending MD [...] 7:07:00 AM EST, Route to Pharmacy Electronically, [facility]/pharmacy #[id number], Partial fill upon patient request if the [...] 5:13:00 PM EDT, Route to Pharmacy Electronically, [facility]/pharmacy #[id number], Partial fill upon patient request [...] Payer: MEDICARE PART B OUTPT Member Number: [id number] Policy Number: NA Group Number: MONALISA Health Plan Information #: 2 Payer: [facility] Member Number: [id number] Policy Number: NA Group Number: MONALISA
--- OUTSIDE RECORDS SUMMARY | 2024-06-20 14:30 | XMS_ITS | Continuity of Care Document ---
Author Organization [facility] Address [address] [place] [address]- Care Team Providers Care Firewall Administrator Name Role Phone Marcie Palafox MD Primary Care Physician [phone] [id number] 05/[facility] - 06/11/[address] [address]- Attending Physician: Angelica Klein MD Referring Physician: Opal Auguste DO Encounter Type: Preadmit IP Allergies, Adverse Reactions, Alerts Substance Criticality Severity [...] 7:07:00 AM EST, Route to Pharmacy Electronically, [facility]/pharmacy #[id number], Partial fill upon patient request if the [...] 5:13:00 PM EDT, Route to Pharmacy Electronically, [facility]/pharmacy #[id number], Partial fill upon patient request if [...] 7:06:00 AM EST, Route to Pharmacy Electronically, [facility]/pharmacy #[id number], Partial fill upon patient request if [...] Maintenance, 03/25/24 4:01:00 PM EST, Gel, [id number], Partial fill upon patient request if the [...] Health Plan Information #: 1 Payer: MEDICARE A INPT 25 Member Number: [id number] Policy Number: MONALISA Group Number: MONALISA Health Plan Information #: 3 Payer: [employer] Member Number: [id number] Policy Number: NA Group Number: MONALISA Health Plan Information #: 4 Payer: [employer] Member Number: [id number] Policy Number: NA Group Number: NA Health Plan Information #: 2 Payer: MEDICARE PART B OUTPT Member Number: [id number] Policy Number: NA Group Number: NA
--- OUTSIDE RECORDS SUMMARY | 2024-06-20 14:30 | XMS_ITS | Continuity of Care Document ---
Author Organization [facility] Address [address] [place] [address]- Care Team Providers Care Travel Registered Nurse Nicu Name Role Phone Vivienne BEAVERS, Marcie Primary Care Physician [id number] Date(s): 05/14/24 - 06/19/[address] [address] Attending Physician: Molly Gil DO Admitting Physician: [...] 7:07:00 AM EST, Route to Pharmacy Electronically, [facility]/pharmacy #[id number], Partial fill upon patient request if the [...] 5:13:00 PM EDT, Route to Pharmacy Electronically, [facility]/pharmacy #[id number], Partial fill upon patient [...] Maintenance, 03/25/24 4:01:00 PM EST, [facility], [id number], Partial fill upon patient request if the [...] MONALISA Health Plan Information #: 2 Payer: [facility] Member Number: [id number] Policy Number: NA Group Number: MONALISA Health Plan Information #: 1 Payer: MEDICARE PART B OUTPT Member Number: [id number] Policy Number: NA Group Number: NA
--- OUTSIDE RECORDS SUMMARY | 2024-06-20 14:30 | XMS_ITS | Continuity of Care Document ---
Author Organization [facility] Address [address] [place] [address]- Care Team Providers Care Double Surface Operator Name Role Phone Marcie Palafox MD Primary Care Physician [phone] [id number] Date(s): 04/26/24 - 06/01/[address] [address]- Attending Physician: Janiya Lee DO Admitting Physician: Janiya Lee DO Referring Physician: Johan MOYA, KIANA, Krissy Ray Encounter Type: Pre-Outpt Allergies, Adverse Reactions, Alerts [...] 7:07:00 AM EST, Route to Pharmacy Electronically, [facility]/pharmacy #[id number], Partial fill upon patient request if the [...] Refills, Maintenance, 05/15/24 2:49:00 PM EST, Tablet, [facility]/pharmacy #[id number], Partial fill upon patient request [...] 5:13:00 PM EDT, Route to Pharmacy Electronically, [facility]/pharmacy #[id number], Partial fill upon patient request [...] MONALISA Health Plan Information #: 2 Payer: [employer] Member Number: [id number] Policy Number: MONALISA Group Number: MONALISA Health Plan Information #: 1 Payer: MEDICARE PART B OUTPT Member Number: [id number] Policy Number: MONALISA Group Number: MONALISA
[2024-06-20 14:54] VITALS: BP 134/63; PULSE 84; RESP 16; TEMP 37.1; O2SAT 100
== END 2024-06-20 14:54 | disposition home or self-care (01) ==
PROVIDERS: Emergency Provider Emergency Medicine
DX: K13.0 Diseases of lips (principal); R23.8 Other skin changes
CPT/HCPCS: 36415; 80053; 85025; 99282; 99283

== ENCOUNTER 2024-10-22 11:35 | Outpatient (REF) | payer MEDICARE, MEDICAID, SELFPAY ==
--- OUTSIDE RECORDS SUMMARY | 2024-10-22 13:50 | XMS_ITS | Clinical Summary ---
Author Organization [employer] Address [address] [place] [address] Care Team Providers Care Propagation Worker Name Role Phone Unavailable Primary Care Provider Unavailabl e Allergies No known active allergies Medications Omeprazole 20 MG tablet delayed-release Take 20 mg by mouth 2 times daily. 60 tablet 2 07/03/2023 Active sucralfate (Carafate) 1 GM/10ML suspension TAKE 10 ML'S TWICE A DAY 07/05/2023 Active penicillin v potassium (Veetid) 500 MG tablet Take 1 tablet (500 mg) by mouth 2 times daily for 10 days. 20 tablet 10/22/2024 11/02/19 25 Active acetaminophen (Tylenol) 500 MG tablet Take 2 tablets (1,000 mg) by mouth every 6 (six) hours if needed for moderate pain or fever. 30 tablet 10/22/2024 Active ibuprofen 400 MG tablet Take 1 tablet (400 mg) by mouth every 6 (six) hours if needed for moderate pain or fever for up to 30 doses. 30 tablet 10/22/2024 Active Active Problems No known active problems Encounters Date Type Department Care Team Description 10/22/2024 11:20 AM EDT Office Visit [facility] [address], [place] [id number] Strep pharyngitis (Primary Dx); Screening examination for STI 10/22/2024 Travel from Last 3 Months Immunizations Immunization Administration Dates Next Due DTaP 01/20/2011,12/02/2008 DTaP, [...] Sign Reading Time Taken Comments Blood Pressure 121/76 10/22/2024 10:56 AM EDT Pulse 80 10/22/2024 10:56 AM EDT Temperature 36.5 C (97.7 F) 10/22/2024 10:56 AM EDT Respiratory Rate 17 10/22/2024 10:56 AM EDT Oxygen Saturation 99% 10/22/2024 10:56 AM EDT Inhaled Oxygen Concentration - - Weight 75.4 kg (166 lb 3.2 oz) 10/22/2024 10:56 AM EDT Height 154.9 cm (5' 1 ) 07/03/2023 3:03 PM EST Body Mass Index 31.4 07/03/2023 3:03 PM EST Plan of Treatment Health Maintenance Due Date Last Done Comments Depression Screening 2002 HIV Screening 2002 SDOH Screening 2002 Disability Screening 2002 Alcohol/Substance Use Screening 2014 HPV Vaccines (3 - 2-dose series) 02/05/2015 10/06/2014, 08/06/2014, 08/06/2014 Family Planning (PISQ) 2017 Meningococcal B Vaccine (1 of 2 - Standard) 2018 Dental Oral Exam 09/23/2019 03/24/2019, 02/20/2018 Dental Prophylaxis 09/23/2019 03/24/2019, 02/20/2018 Dental X-Ray: Bitewings 03/25/2020 03/24/2019, 02/20 Hepatitis C Screening 2020 Dental X-Ray: Full Mouth 02/21/2021 02/20/2018 Pap Smear 10/18/2023 COVID-19 Vaccine ( season) 2023 Chlamydia and Gonorrhea Screening 12/30/2023 12/29/2022 Influenza Vaccine (Season Ended) 2024 02/21/2011 Tobacco Screening 10/22/2025 10/22/2024 DTaP/Tdap/Td Vaccines (6 - Td or Tdap) [...] Years) and At-Risk Patients (6 to 49) Years Aged Out No longer eligible based on [...] EDT) CT PCR NOT DETECTED Not Detect. [facility] Comment:A not detected test result [...] psychologicalconsequences. NG PCR NOT DETECTED Not Detect. [facility] Comment:A not detected test result [...] PM EDT 12/29/2022 6:24 PM EDT Narrative [facility] - 12/30/2022 7:25 AM EDT Vaginal [facility] MICROBIOLOGY - GENERAL ORDERABLES Final Result [facility] [address] [place], [place] [phone] from Last 3 Months or Most Recently Relevant to Health Maintenance Insurance [facility] STANDARD DENTAL-[facility] MEDICAID STAND ADULT
[2024-10-23 08:16] LABS: HBS Num1 > 1000.00 mIU/mL (0-7.99); HBc Num1 0.09 S/CO (0.00-0.79); HBsAGNum1 0.34 S/CO (0.00-0.99); HIV AB/AG Nonreactive (Nonreactive); HIV Num 1 0.06 S/CO (0.00-0.99); Hepatitis B Core Antibody Nonreactive (Nonreactive); Hepatitis B Surface Antigen Negative (Negative); ~HepC Num1 0.11 S/CO (0.00-0.79); ~Hepatitis B Surface Antibody REACTIVE (Nonreactive); ~Hepatitis C Antibody Nonreactive (Nonreactive)
[2024-10-23 15:43] LABS: Trichomonas vaginalis RNA NOT DETECTED (NOT DETECTED)
[2024-10-24 09:54] LABS: RPR Rapid Plasma Reagin NON-REACTIVE (NON-REACTIVE)
[2024-10-25 21:08] LABS: C. Trachomatis RNA TMA, Throat NOT DETECTED; N. gonorrhoeae RNA TMA, Throat NOT DETECTED
== END 2024-10-22 11:36 | disposition home or self-care (01) ==
LOC: HO.HHCL 11:35
PROVIDERS: Visit Provider Emergency Medicine
DX: Z11.3 Encounter for screening for infections with a predominantly sexual mode of transmission (principal)
CPT/HCPCS: 86592; 86704; 86706; 86803; 87340; 87389; 87491; 87591; 87661

== ENCOUNTER 2025-02-04 09:57 | Outpatient (REF) | payer MEDICARE, MEDICAID, SELFPAY ==
[2025-02-04 11:28] LABS: MANUAL DIFF FLAG NO
[2025-02-04 11:47] LABS: Hematocrit 42.9 % (37.0-47.0); Hemoglobin 13.7 g/dl (12.0-16.0); Imm Gran Abs Auto 0.02 X10*3/uL (0.00-0.03); Imm Gran Pct Auto 0.3 % (0.0-0.4); Lymphocytes Absolute Auto 2.8 X10*3/uL (1.2-4.9); Mean Corpuscular HGB Conc 31.9 g/dl (31.0-35.0); Mean Corpuscular Hemoglobin 26.1 pg (27.0-33.0); Mean Corpuscular Volume 81.9 fL (80.0-98.0); NRBC Abs Auto 0.000 X10*3/uL (0.0-0.012); NRBC Pct Auto 0.0 /100WBC (0.0-0.2); Platelet Count 250 X10*3/uL (160-400); Red Blood Count 5.24 X10*6/uL (4.20-5.50); White Blood Count 6.5 X10*3/uL (4.8-10.8)
[2025-02-04 12:27] LABS: Cholesterol 159 mg/dL (<200); HDL Cholesterol 38 mg/dL (>40); Triglycerides 49 mg/dL (<150)
[2025-02-04 12:45] LABS: Syphilis Screen Nonreactive (Nonreactive)
[2025-02-04 13:01] LABS: HBS Num1 > 1000.00 mIU/mL (0-7.99); HBc Num1 0.15 S/CO (0.00-0.79); HBsAGNum1 0.34 S/CO (0.00-0.99); HIV Num 1 0.05 S/CO (0.00-0.99); Hepatitis B Surface Antigen Negative (Negative); ~HepC Num1 0.09 S/CO (0.00-0.79); ~Hepatitis B Surface Antibody REACTIVE (Nonreactive); ~Hepatitis C Antibody Nonreactive (Nonreactive)
[2025-02-04 16:13] LABS: Anion Gap 10 (12-20); Blood Urea Nitrogen 4 mg/dL (9-16); Calcium 9.1 mg/dL (8.4-10.2); Carbon Dioxide 28 mmol/L (22-29); Chloride 108 mmol/L (96-108); Estimated Glomerular Filt Rate > 60; Potassium 4.3 mmol/L (3.3-5.1); Sodium 142 mmol/L (135-145)
[2025-02-05 05:12] LABS: Bacterial Vaginosis PCR POSITIVE (Negative); Candida Group PCR NOT DETECTED (Not Detect); Candida glab krusei PCR NOT DETECTED (Not Detect); Trichomonas vaginalis PCR NOT DETECTED (Not Detect)
== END 2025-02-04 09:58 | disposition home or self-care (01) ==
LOC: HO.HHCL 09:57
PROVIDERS: PCP Nurse Practitioner; Visit Provider Nurse Practitioner
DX: Z11.3 Encounter for screening for infections with a predominantly sexual mode of transmission (principal); Z13.6 Encounter for screening for cardiovascular disorders; R42 Dizziness and giddiness
CPT/HCPCS: 36415; 80048; 80061; 81515; 85025; 86704; 86706; 86780; 86803; 87340; 87389; 87491; 87591

== ENCOUNTER 2025-02-09 17:45 | Outpatient (REF) | payer MEDICARE, MEDICAID, SELFPAY ==
--- OUTSIDE RECORDS SUMMARY | 2025-02-04 09:00 | XMS_ITS | Encounter Summary ---
Author Organization [employer] Address [address] [place] [address] [address] [address] Care Team Providers Care Collection Coordinator Name Role Phone Cindi Lopez NP Primary Care Provider [phone] Reason for Referral * Consultation (Routine) - Authorized Specialty Diagnoses / Procedures Referred By Mark t Referred To Contact General Surgery Diagnoses External hemorrhoid Cindi Lopez NP [address] [place] [address] Phone: tel: fax: Butch Sanders MD [address] [place] [address] [place], [place] Phone: tel: fax: Referral ID Status Reason Start Date Expiration Date Visits Requested Visits Authorized [id number] Authorized Specialty Services Required 02/04/2025 02/04/2026 1 1 Reason for Visit * Reason Comments New patient Encounter Details Date Type Department Care Team (Late st Contact Info) Description 02/04/2025 9:00 AM EDT Office Visit [facility] [address] [place] [address] Cindi Lopez NP [address] [place] [address] Encounter to establish care with new provider (Primary Dx); Vaginal discharge; Dizziness; Encounter for health-related screening; Routine screening for STI (sexually transmitted infection); Dietary counseling; Exercise counseling; Anxiety; Encounter for other general counseling or advice on contraception; External hemorrhoid Social History Tobacco Use Types Packs/Day Years Used Date Smoking Tobacco: Never Passive Smoke Exposure: Never Smokeless Tobacco: Never Alcohol Use Standard Drinks/Week Comments Yes 0 (1 standard drink = 0.6 oz pur e alcohol) Alcohol Answer Date Recorded How often do you have a drink containing alcohol ? 2 02/04/2025 How many drinks containing a lcohol do you have on a typical day when you are drinking? 0 02/04/2025 How often do you have six or more drinks on one occasion? 0 02/04/2025 Depression Answer Date Recorded Patient Health Questionnaire-9 Score 0 02/04/2025 Patient Health Questionnaire-9 Score 0 02/04/2025 Last PHQ-9: Questionnaire Data Not on file 1 Housing Stability Answer Date Recorded What is your housing situation today? I have tito sanford 01/28/[address] you li ve. Do you have problems with any of the following? None of the above 01/28/2025 Food Insecurity Answer Date Recorded Within the past 12 months, y ou worried that your food would run out before you got money to buy more: Never True 01/28/2025 Within the past 12 months,th e food you bought just didn't last and you didn't have enough money to get more: Never True 04/2024 Transportation Answer Date Recorded In the past 12 months, has l ack of transportation kept you from medical appts, meetings, work or from getting things needed for daily living? No 01/28/2025 Utilities Answer Date Recorded In the past 12 months, has t he electric, gas, oil or water company threatened to shut off services in your home? No 01/28/2025 Depression Answer Date Recorded Patient Health Questionnaire-2 Score 0 02/04/2025 Internet Access Answer Date Recorded Internet Access Q1 Yes 01/28/2025 Internet Access Q2 Not on file 01/28/2025 Comments Unknown Intention Date Recorded No desire to become (finding) 1 Sex and Gender Information Value Date Recorded Sex Assigned at Female 02/27/2022 10:30 AM EDT Legal Sex Female 10:30 AM EDT Gender Identity Female 02/27/2022 10:30 AM EDT Sexual Orientation Choose not to disclose 2021 10:30 AM EDT documented as of this encounter Last Filed Vital Signs Vital Sign Reading Time Taken Comments Blood Pressure 120/80 02/04/2025 9:01 AM EDT Pulse 78 02/04/2025 9:01 AM EDT Temperature 36.6 C (97.8 F) 02/04/2025 9:01 AM EDT Respiratory Rate 17 02/04/2025 9:01 AM EDT Oxygen Saturation 99% 02/04/2025 9:01 AM EDT Inhaled Oxygen Concentration - - Weight 70.9 kg (156 lb 3.2 oz) 02/04/2025 9:01 A M EDT Height 154.9 cm (5' 1 ) 02/04/2025 9:01 AM EDT Body Mass Index 29.51 02/04/2025 9:01 AM EDT documented in this encounter Functional Status * Over the past 2 weeks, how often have you been bothered by any of the following problems? Question Answer Date of Assessment Author Patient Health Questionnaire -2 Score 0 02/04/2025 9:04 AM EDT Ilsa Karimi MA * Little interest or pleasure in doing things Answer Date of Assessment Author Not at all 02/04/2025 9:04 AM EDT Ilsa Karimi MA * Feeling down, depressed, or hopeless Answer Date of Assessment Author Not at all 02/04/2025 9:04 AM EDT Ilsa Karimi MA * Trouble falling or staying asleep, or sleeping too much Answer Date of Assessment Author Not at all 02/04/2025 9:04 AM EDT Ilsa Karimi MA * Feeling tired or having little energy Answer Date of Assessment Author Not at all 02/04/2025 9:04 AM EDT Ilsa Karimi MA * Poor appetite or overeating Answer Date of Assessment Author Not at all 02/04/2025 9:04 AM EDT Ilsa Karimi MA * Feeling bad about yourself - or that you are a failure or have let yourself or your family down Answer Date of Assessment Author Not at all 02/04/2025 9:04 AM EDT Ilsa Karimi MA * Trouble concentrating on things, such as reading the newspaper or watching television Answer Date of Assessment Author Not at all 02/04/2025 9:04 AM EDT Ilsa Karimi MA * Moving or speaking so slowly that other people could have noticed? Or the opposite - being so fidgety or restless that you have been moving around a lot more than usual. Answer Date of Assessment Author Not at all 02/04/2025 9:04 AM EDT Ilsa Karimi MA * Thoughts that you would be better off or hurting yourself in some way Answer Date of Assessment Author Not at all 02/04/2025 9:04 AM EDT Ilsa Karimi MA * Patient Health Questionnaire-9 Score Answer Date of Assessment Author 0 02/04/2025 9:04 AM EDT Ilsa Karimi MA * Over the last 2 weeks, how often have you been bothered by any of the following problems? Question Answer Date of Assessment Author Feeling nervous, anxious, or on edge 0 02/04/2025 9:04 AM EDT Ilsa Karimi MA Not being able to stop or co ntrol worrying 2 02/04/2025 9:04 AM EDT Ilsa Karimi MA Worrying too much about diff erent things 2 02/04/2025 9:04 AM EDT Ilsa Karimi MA Trouble relaxing 1 02/04/2025 9:04 AM EDT Ilsa Conde MA Being so restless that it is hard to sit still 0 02/04/2025 9:04 AM EDT Ilsa Karimi MA Becoming easily annoyed or irritable 0 02/04/2025 9:04 AM EDT Ilsa Karimi MA Feeling afraid as if somethi ng awful might happen 0 02/04/2025 9:04 AM EDT Ilsa Karimi MA MK-7 Total Score 5 02/04/2025 9:04 AM EDT Ilsa Karimi MA documented as of this encounter Progress Notes * Cindi Lopez NP - 02/04/2025 9:00 AM EDT Subjective Patient ID: Melvin Herrmann is a 24 y.o. female who presents for new patient visit. Denies recent illness, injury or hospitalization. Previous PCP [facility] Pedi provider Accompanied by her infant daughter and mother to today's visit HPI Concerns: 1) Describes whitish malodorous vaginal discharge that has been present since giving to her daughter in April. Denies vaginal itching or urinary symptoms. She is sexually active with male partner 2) Intermittent dizziness that resolved with eating chocolate for soda 3) has painless bump in rectal area PMHx: Medical History[1] PsurgHX: Surgical History[2] Allergies: Allergies[3] Medication: see reviewed list Social Hx: Tobacco Use: Low Risk (02/04/2025) Tobacco Smoking Tobacco Use: Never Smokeless Tobacco Use: Never Passive Exposure: Never Alcohol Use: Not At Risk (02/04/2025) Alcohol Frequency of Alcohol Consumption: 2 Average Number of Drinks: 0 Frequency of Binge Drinkin Living situation: lives alone with daughter Employment/Education: unemployed at the moment Diet: rice, beans, chicken, sandwiches, chocolate cravings, soda, fruits and vegetables Exercise: sedentary; plans to start going to the gym Substance use: marijuana use daily Sexual activity: male partner Last period: Patient's last menstrual period was 01/27/2025 (approximate). last 3-4 days control method: none; considering nexplanon OB Hx: OB History Para Term AB Living 1 0 0 0 0 1 SAB IAB Ectopic Multiple Live Births 0 0 0 0 0 Mental health: ok has anxiety in social settings Routine Health Maintenance Optometry: 3 years ago; denies vision changes Dental: established with dental home [facility]/ [facility] dental. Last seen 2 years ago Cervical CA: reports screening completed in 2023 @ [facility]; reports normal result. Outstanding IZ: flu Family History[4] Review of Systems Constitutional: Negative. Negative for chills and fever. Respiratory: Negative for chest tightness and shortness of breath. Cardiovascular: Negative for chest pain. Gastrointestinal: Negative for abdominal pain, constipation, diarrhea and nausea. Genitourinary: Positive for vaginal discharge. Negative for difficulty urinating, dysuria, flank pain, vaginal bleeding and vaginal pain. Musculoskeletal: Negative for arthralgias, back pain, myalgias and neck pain. Skin: Negative. Negative for rash and wound. Neurological: Positive for dizziness. Negative for weakness, light-headedness and headaches. Psychiatric/Behavioral: Negative for behavioral problems, confusion, decreased concentration and suicidal ideas. Objective: Visit Vitals BP 120/80 (BP Location: Left arm, Patient Position: Sitting, BP Cuff Size: Adult) Pulse 78 Temp 97.8 ??F (36.6 ??C) (Oral) Resp 17 Ht 5' 1 (1.549 m) Wt 156 lb 3.2 oz (70.9 kg) LMP 01/27/2025 (Approximate) SpO2 99% BMI 29.51 kg/m?? Smoking Status Never BSA 1.75 m?? Problem List[5] Current Medications[6] Immunization History Administered Date(s) Administered DTaP 12/02/2008, 01/20/2011 DTaP, 5 pertussis antigens 07/13/2009 HPV 9-Valent 08/06/2014 HPV, Unspecified 10/06/2014 Hep B, Adolescent or Pediatric 12/02/2008, 07/13/2009, 01/20/2011 IPV 12/02/2008, 07/13/2009, 02/21/2011 Influenza injectable quadrivalent preservative free 02/21/2011 MMR 12/02/2008, 07/13/2009 Meningococcal MCV4P [id number] 08/06/2014 Tdap 08/06/2014 Varicella 12/02/2008, 01/20/2011 Physical Exam Vitals reviewed. Rad Tech present: patient's mother present during exam. Constitutional: General: She is not in acute distress. Appearance: Normal appearance. She is not ill-appearing. HENT: Head: Normocephalic and atraumatic. Right Ear: External ear normal. Left Ear: External ear normal. Nose: Nose normal. Eyes: General: No scleral icterus. Extraocular Movements: Extraocular movements intact. Cardiovascular: Rate and Rhythm: Normal rate and regular rhythm. Pulses: Normal pulses. Heart sounds: Normal heart sounds. Pulmonary: Effort: Pulmonary effort is normal. No respiratory distress. Breath sounds: Normal breath sounds. Genitourinary: Rectum: External hemorrhoid present. Musculoskeletal: General: Normal range of motion. Cervical back: Normal range of motion. Neurological: General: No focal deficit present. Mental Status: She is alert and oriented to person, place, and time. Gait: Gait normal. Psychiatric: Mood and Affect: Mood normal. Behavior: Behavior normal. Assessment & Plan Encounter to establish care with new provider -personal medical, surgical, and medication histories reviewed along with family hx -routine health maintenance discussed Dietary Recommendations: Fruits, vegetables, whole grains, protein foods, and fat-free or low-fat dairy products are healthychoices. Eat different types of protein foods in your diet. This can include seafood, lean meats, poultry, beans, peas, lentils, nuts, seeds, soy products, and eggs. Limit foods and beverages higher in added sugars, saturated fat, and sodium. Exercise Recommendations: At least 150 minutes of moderate-intensity physical activity per week, or an equivalent combinationof moderate- and vigorous-intensity activity Vaginal discharge -Vaginal swab obtained to test for common vaginal infections and potential STI; will treat according to infection type -patient prefers intravaginal treatment if BV -feminine hygiene measures reviewed Orders: Bacterial Vaginosis, Yeast and Trich; Future Chlamydia/N. Gonorrhoeae RNA, TMA, Rectal; Future Dizziness -labs ordered to evaluate for anemia and assess glucose levels. Unable to order TSH as patient's not presenting with insurance approved conditions for TSH check -BP WNL -discussed slowed position changes, maintaining adequate hydration and food intake -will follow-up with results Orders: CBC auto differential; Future Basic Metabolic Panel; Future Encounter for health-related screening Orders: Lipid Panel, Standard; Future Routine screening for STI (sexually transmitted infection) Orders: Bacterial Vaginosis, Yeast and Trich; Future Chlamydia/N. Gonorrhoeae RNA, TMA, Rectal; Future Hepatitis B Core Antibody, Total; Future Hepatitis B Surface Antibody, Qualitative; Future Hepatitis B surface antigen, EIA; Future HIV-1/2 Antigen and Antibodies, Fourth Generation, with Reflexes; Future Hepatitis C Antibody with Reflex to HCV, RNA, Quantitative, Real-Time PCR; Future Syphilis Screen; Future Dietary counseling Exercise counseling Anxiety -MK-7 Total Score: 5 (02/04/2025 9:04 AM) -report anxiety present in social settings -non pharmacological interventions discussed -follow-up if worsening Encounter for other general counseling or advice on contraception -does not desire ; patient desires nexplanon implant -will be scheduled for procedure visit -provided [email or web address] site and encouraged to review prior to follow-up for further discussion -offered condoms in the interim External hemorrhoid -patient request referral for surgical intervention -discussed maintaining adequate fluid intake and maintaining high fiber diet to prevent exacerbation Orders: Referral to General Surgery; Future Patient verbalizes understanding and agrees with plan Follow-up: as scheduled for contraception implant [1] Past Medical History: Diagnosis Date Gastritis GERD (gastroesophageal reflux disease) reports during [2] History reviewed. No pertinent surgical history. [3] No Known Allergies [4] Family History Problem Relation Name Age of Onset Diabetes Mother [5] Patient Active Problem List Diagnosis Alpha thalassemia silent carrier GERD (gastroesophageal reflux disease) [6] No current outpatient medications on file. documented in this encounter Plan of Treatment Upcoming Encounters Date Type Department Care Team ([facility] st Contact Info) Description 02/18/2025 2:00 PM EDT Procedure Visit [facility] [address], [place] [phone] Nika Oquendo CN [address], [place] [phone] Scheduled Orders Name Type Priority Associated Diagnoses Orde r Schedule Bacterial Vaginosis, Yeast and Trich Microbiology Routine Vaginal discharge Routine screening for STI (sexually transmitted infection) Expected: 02/04/2025 (Approximate), Expires: 02/04/2026 Chlamydia/N. Gonorrhoeae RNA, TMA, Rectal Microbiology Routine Vaginal discharge Routine screening for STI (sexually transmitted infection) Expected: 02/04/2025 (Approximate), Expires: 02/04/2026 Scheduled Referrals Name Type Priority Associated Diagnoses Orde r Schedule Referral to General Surgery Outpatient Referral Routine External hemorrhoid Expected: 02/04/2025 (Approximate), Expires: 02/04/2026 documented as of this encounter Procedures Procedure Name Priority Date/Time Associated Diagnosis Comments SYPHILIS SCREEN Routine 02/04/2025 10:46 AM EDT Routine screening for STI (sexually transmitted infection) CBC WITH AUTO DIFFERENTIAL Routine 02/04/2025 10:46 AM EDT Dizziness HEPATITIS C AB W/REFL TO HCV RNA, QN, PCR Routine 02/04/2025 10:46 AM EDT Routine screening for STI (sexually transmitted infection) HEPATITIS B SURFACE ANTIGEN, EIA Routine 02/04/2025 10:46 AM EDT Routine screening for STI (sexually transmitted infection) HEPATITIS B CORE AB TOTAL Routine 02/04/2025 10:46 AM EDT Routine screening for STI (sexually transmitted infection) HIV 1/2 ANTIGEN/ANTIBODY, FOURTH GENERATION W/RFL Routine 02/04/2025 10:46 AM EDT Routine screening for STI (sexually transmitted infection) HEPATITIS B SURFACE ANTIBODY, QUALITATIVE Routine 02/04/2025 10:46 AM EDT Routine screening for STI (sexually transmitted infection) LIPID PANEL, STANDARD Routine 02/04/2025 10:46 AM EDT Encounter for health-related screening BASIC METABOLIC PANEL Routine 02/04/2025 10:46 AM EDT Dizziness documented in this encounter Results * (ABNORMAL) Basic Metabolic Panel (02/04/2025 10:46 AM EDT) Sodium 142 135 - 145 mmol/L [facility] Potassium 4.3 3.3 - 5.1 mmol/L [facility] Chloride 108 96 - 108 mmol/L [facility] Carbon Dioxide 28 22 - 29 mmol/L [facility] Anion Gap 10(L) 12 - 20 [facility] Urea Nitrogen (BUN) 4(L) 9 - 16 mg/dL [facility] Creatinine, Serum 0.63 0.5 - 1.4 mg/dL [facility] Estimated Glomerular Filt Rate >60 [facility] Comment:Chronic Kidney Disea se: Estimated GFR < 60 mL/min/1.38m1Ntazor Kidney Disease: Estimated GFR < 15 mL/min/1.73m2 Glucose 82 60 - 115 mg/dL [facility] Calcium 9.1 8.4 - 10.2 mg/dL [facility] Blood Venous blood specimen / Unknown 02/04/2025 10:46 AM EDT 02/04/2025 11:24 AM EDT Cindi Boyd [employer] LAB BLOOD ORDERABLES Final Resu lt Performing Organization Address [facility]/ZIP Co de Phone Number [facility] [address] [place] [phone] * Syphilis Screen (02/04/2025 10:46 AM EDT) Syphilis Screen Nonreactive Nonreactive [facility] Blood Venous blood specimen / Unknown 02/04/2025 10:46 AM EDT 02/04/2025 11:[address]LOOD ORDERABLES Final Resu lt Performing Organization Address [facility] Co de Phone Number [facility] [address] [place] [address] [phone] * Hepatitis C Antibody with Reflex to HCV, RNA, Quantitative, Real-Time PCR (02/04/2025 10:46 AM EDT) Hepatitis C Antibody Nonreactive Nonreactive [facility] Comment:Antibodies to HCV no t detected; does not exclude early acuteHCV infection. Blood Venous blood specimen / Unknown 02/04/2025 10:46 AM EDT 02/04/2025 11:24 AM EDT [facility] [employer] LAB BLOOD ORDERABLES Final Resu lt Performing Organization Address [facility] Co de Phone Number [facility] [address] [place] [phone] [phone] * HIV-1/2 Antigen and Antibodies, Fourth Generation, with Reflexes (02/04/2025 10:46 AM EDT) HIV AB/AG Nonreactive Nonreactive [facility] Comment:HIV-1 p24 Ag and/or HIV-1/HIV-2 Ab not detected.A test result that is nonreactive does not exclude thepossibility of exposure to or infection with HIV-1 and/orHIV-2. Nonreactive results in this assay for individualswith prior exposure to HIV-1 and/or HIV-2 may be due toantigen and antibody levels that are below the limit ofdetection of this assay.The [employer] Alinity HIV Ag/Ab Combo assay result andsupplemental assay results should be interpreted inconjunction with the patient's clinical presentation,history and other laboratory results. If the results areinconsistent with clinical evidence, additional testing issuggested to confirm the result. Blood Venous blood specimen / Unknown 02/04/2025 10:46 AM EDT 02/04/2025 11:24 AM EDT [facility] LAB BLOOD ORDERABLES Final Resu lt Performing Organization Address [facility] Co de Phone Number [facility] [address] [place] [phone] * Hepatitis B surface antigen, EIA (02/04/2025 10:46 AM EDT) Pathologist [facility] Hepatitis B Surface Ag Negative Negative [facility] Blood Venous blood specimen / Unknown 02/04/2025 10:46 AM EDT 02/04/2025 11:24 AM EDT [facility] LAB BLOOD ORDERABLES Final Resu lt Performing Organization Address [facility] Co de Phone Number [facility] [address] [place] [phone] * Hepatitis B Surface Antibody, Qualitative (02/04/2025 10:46 AM EDT) Pathologist [facility] ~Hepatitis B Surface Antibody REACTIVE Nonreactive [facility] Comment:REACTIVE: > 11.99 mI U/mL Blood Venous blood specimen / Unknown 02/04/2025 10:46 AM EDT 02/04/2025 11:24 AM EDT Cindi Boyd [employer] LAB BLOOD ORDERABLES Final Resu lt Performing Organization Address City/[facility]/ZIP Co de Phone Number [facility] [address] [place] [phone] * Hepatitis B Core Antibody, Total (02/04/2025 10:46 AM EDT) Pathologist [facility] Hepatitis B Core Antibody Nonreactive Nonreactive [facility] Blood Venous blood specimen / Unknown 02/04/2025 10:46 AM EDT 02/04/2025 11:24 AM EDT Cindi Oliver [employer] LAB BLOOD ORDERABLES Final Resu lt Performing Organization Address [facility] Co de Phone Number [facility] [address] [place] [address] [phone] * (ABNORMAL) CBC auto differential (02/04/2025 10:46 AM EDT) Pathologist [facility] White Blood Count 6.5 4.8 - 10.8 X10*3/uL [facility] Red Blood Count 5.24 4.20 - 5.50 X10*6/uL [facility] Hemoglobin 13.7 12.0 - 16.0 g/dl [facility] Hematocrit 42.9 37.0 - 47.0 % [facility] Mean Corpuscular Volume 81.9 80.0 - 98.0 fL [facility] Mean Corpuscular Hemoglobin 26.1(L) 27.0 - 33.0 pg [facility] Mean Corpuscular HGB Conc 31.9 31.0 - 35.0 g/dl [facility] Red Cell Distribution Width 14.8 11.0 - 16.0 % [facility] Platelet Count 250 160 - 400 X10*3/uL [facility] Mean Platelet Volume 11.7 9.4 - 12.3 fL [facility] Neutrophils Percent Auto 46.0 45 - 73 % [facility] Imm Gran Pct Auto 0.3 0.0 - 0.4 % [facility] Lymphocytes Percent Auto 42.8(H) 20 - 40 % [facility] Monocytes Percent Auto 6.9 2 - 11 % [facility] Eosinophils Percent Auto 3.2 0 - 4 % [facility] Basophils Percent Auto 0.8 0 - 2 % [facility] NRBC Pct Auto 0.0 0.0 - 0.2 /100WBC [facility] Neutrophils Absolute Auto 3.0 2.0 - 8.3 x10*3/uL [facility] Imm Gran Abs Auto 0.02 0.00 - 0.03 X10*3/uL [facility] Lymphocytes Absolute Auto 2.8 1.2 - 4.9 X10*3/uL [facility] Monocytes Absolute Auto 0.5 0.1 - 1.2 X10*3/uL [facility] Eosinophils Absolute Auto 0.2 0.0 - 0.4 X10*3/uL [facility] Basophils Absolute Auto 0.1 0.0 - 0.2 X10*3/uL [facility] NRBC Abs Auto 0.000 0.0 - 0.012 X10*3/uL [facility] Blood Venous blood specimen / Unknown 02/04/2025 10:46 AM EDT 02/04/2025 11:24 AM EDT us Cindi Lopez [employer] LAB BLOOD ORDERABLES Final Resu lt [facility] [address] [place] [phone] * (ABNORMAL) Lipid Panel, Standard (02/04/2025 10:46 AM EDT) Triglycerides 49 <150 mg/dL [facility] Comment:Desirable Triglyceri de: less than 150 mg/dLBorderline High Triglyceride 150-199 mg/dLHigh Triglyceride: 200-499 mg/dLVery High Triglyceride: greater than or equal to 5OO mg/dL Cholesterol 159 <200 mg/dL [facility] Comment:Desirable Cholestero l: less than 200 mg/dLBorderline High Cholesterol: 200-239 mg/dLHigh Cholesterol: greater than 239 mg/dL LDL Cholesterol Calculated 112(H) <100 mg/dL [facility] Comment:Desirable LDL: less than 100 mg/dLNear Optimal/Above Optimal LDL: 110- 129 mg/dLBorderline High LDL: 130-159 mg/dLHigh LDL: 160-189 mg/dLVery High LDL: greater than or equal to 190 mg/dL HDL Cholesterol 38(L) >40 mg/dL [facility] Comment:Desirable HDL: great er than 40 mg/dL Note: This HDL assay may give artificially low results in patients with liver disease. Blood Venous blood specimen / Unknown 02/04/2025 10:46 AM EDT 02/04/2025 11:24 AM EDT us Cindi Lopez NP LAB BLOOD ORDERABLES Final Resu lt Performing Organization Address City/State/[facility] Co de Phone Number [facility] [address] [place] [phone] documented in this encounter Visit Diagnoses Diagnosis Encounter for other general counseling or advice on contraception Vaginal discharge Leukorrhea, not specified as infective Dizziness Dizziness and giddiness Encounter for health-related screening Routine screening for STI (sexually transmitted infection) Screening examination for venereal disease Dietary counseling Dietary surveillance and counseling Exercise counseling Anxiety Anxiety state, unspecified External hemorrhoid External hemorrhoids without mention of complication documented in this encounter Additional Health Concerns Assessment Noted Time PHQ-9 Depression Total Score: 0 02/05/20 9:04 AM EDT documented as of this encounter Care Teams Collection Coordinator Relationship Specialty Start Date End Date Cindi Lopez NP [address] [place] [id number] PCP - General Family Medicine 02/03/25 documented as of this encounter
--- OUTSIDE RECORDS SUMMARY | 2025-02-09 17:47 | XMS_ITS | Encounter Summary ---
Author Organization [employer] Address [address] [place] [address] Care Team Providers Care Product Technician Name Role Phone Cindi Lopez NP Primary Care Provider [phone] Encounter Details Date Type Department Care Team ([facility] st Contact Info) Description 02/06/2025 Orders Only [facility] [address] [place] [address] Cindi Lopez NP [address] [place] [address] Routine screening for STI (sexually transmitted infection) (Primary Dx); Vaginal discharge Social History Tobacco Use Types Packs/Day Years [...] Q2 Not on file 01/28/2025 Comments Unknown Sex and Gender Information Value Date Recorded Sex Assigned at Female 02/27/2022 10:30 AM EDT Legal Sex Female 10:30 AM EDT Gender Identity Female 02/27/2022 10:30 AM EDT Sexual Orientation Choose not to disclose 2021 10:30 AM EDT documented as of this encounter Plan of Treatment Upcoming Encounters Date Type Department Care Team (Late st Contact Info) Description 02/18/2025 2:00 PM EDT Procedure Visit [facility] [address] [place] [address] Nika Oquendo CNM [address] [place] [address] documented as of this encounter Visit Diagnoses Diagnosis Routine screening for STI (sexually transmitted infection)- Primary Screening examination for venereal disease Vaginal discharge Leukorrhea, not specified as infective documented in this encounter Additional Health Concerns Assessment Noted Time PHQ-9 Depression Total Score: 0 02/05/20 9:04 AM EDT documented as of this encounter Care Teams Product Technician Relationship Specialty Start Date End Date Cindi Lopez NP [address] [place] [address] PCP - General Family Medicine 02/03/25 documented as of this encounter
--- OUTSIDE RECORDS SUMMARY | 2025-02-09 17:47 | XMS_ITS | Encounter Summary ---
Author Organization [employer] Address [address] [place] [address] Care Team Providers Care Tumbling Barrel Painter Name Role Phone Cindi Lopez KIANA Primary Care Provider [phone] Encounter Details Date Type Department Care Team (Latest Contact Info) Description 02/04/2025 Travel Social History Tobacco Use Types Packs/Day Years [...] AM EDT documented as of this encounter Functional Status * Over the past 2 weeks, how often have you been bothered by any of the following problems? Question Answer Date of Assessment Author Patient Health Questionnaire -2 Score 0 02/04/2025 9:04 AM EDT Ilsa Karimi MA * Little interest or pleasure in doing things Answer Date of Assessment Author Not at all 02/04/2025 9:04 AM DIYAT Ilsa Karimi [place] * Feeling down, depressed, or hopeless Answer Date of Assessment Author Not at all 02/04/2025 9:04 AM Ilsa Oden [place] * Trouble falling or staying asleep, or sleeping too much Answer Date of Assessment Author Not at all 02/04/2025 9:04 AM Ilsa Oden [place] * Feeling tired or having little energy Answer Date of Assessment Author Not at all 02/04/2025 9:04 AM DIYAT Ilsa Karimi MA * Poor appetite or overeating Answer Date of Assessment Author Not at all 02/04/2025 9:04 AM Ilsa Oden MA * Feeling bad about yourself - or that you are a failure or have let yourself or your family down Answer Date of Assessment Author Not at all 02/04/2025 9:04 AM Ilsa Oden MA * Trouble concentrating on things, such [...] to sit still 0 02/04/2025 9:04 AM DIYAT Ilsa Karimi MA Becoming easily annoyed or irritable 0 02/04/2025 9:04 AM EDT Ilsa Karimi MA Feeling afraid as if somethi ng awful might happen 0 02/04/2025 9:04 AM EDT Ilsa Karimi MA MK-7 Total Score 5 02/04/2025 9:04 AM DIYAT Ilsa Karimi MA documented as of this encounter Plan of Treatment Upcoming Encounters Date Type Department Care Team (Late st Contact Info) Description 02/18/2025 2:00 PM EDT Procedure Visit [facility] [address] [place] [address] Nika Oquendo CNM [address] [place] [address] documented as of this encounter Visit Diagnoses Not on filedocumented in this encounter Additional Health Concerns Assessment Noted Time PHQ-9 Depression Total Score: 0 02/05/20 9:04 AM EDT documented as of this encounter Care Teams Tumbling Barrel Painter Relationship Specialty Start Date End Date Cindi Lopez NP [address] [place] [address] PCP - General Family Medicine 02/03/25 documented as of this encounter
--- OUTSIDE RECORDS SUMMARY | 2025-02-09 17:47 | XMS_ITS | Encounter Summary ---
Author Organization [employer] Address [address] [place] [address] Care Team Providers Care Broiler Manager Name Role Phone Cindi Lopez NP Primary Care Provider [phone] Encounter Details Date Type Department Care Team ([facility] st Contact Info) Description 02/04/2025 Orders Only [facility] MED[facility]INE [address] [place] [address] Cindi Lopez NP [address] [place] [address] Social History Tobacco Use Types Packs/Day Years [...] 02/04/2025 9:04 AM Ilsa Oden MA * Moving or speaking so slowly that other people could have noticed? Or the opposite - being so fidgety or restless that you have been moving around a lot more than usual. Answer Date of Assessment Author Not at all 02/04/2025 9:04 AM Ilsa Oden MA * Thoughts that you would be better off or hurting yourself in some way Answer Date of Assessment Author Not at all 02/04/2025 9:04 AM Ilsa Oden MA * Patient Health Questionnaire-9 Score Answer Date of Assessment Author 0 02/04/2025 9:04 AM Ilsa Oden MA * Over the last 2 weeks, how often have you been bothered by any of the following problems? Question Answer Date of Assessment Author Feeling nervous, anxious, or on edge 0 02/04/2025 9:04 AM DIYAT Ilsa Karimi MA Not being able to stop or co ntrol worrying 2 02/04/2025 9:04 AM Ilsa Oden MA Worrying too much about diff erent things 2 02/04/2025 9:04 AM Ilsa Oden MA Trouble relaxing 1 02/04/2025 9:04 AM DIYAT Ilsa Conde MA Being so restless that it is hard to sit still 0 02/04/2025 9:04 AM Ilsa Oden MA Becoming easily annoyed or irritable 0 02/04/2025 9:04 AM Ilsa Oden MA Feeling afraid as if somethi ng awful might happen 0 02/04/2025 9:04 AM Ilsa Oden MA MK-7 Total Score 5 02/04/2025 9:04 AM EDT Ilsa Karimi MA documented as of this encounter Plan of Treatment Upcoming Encounters Date Type Department Care Team (Late st Contact Info) Description 02/18/2025 2:00 PM EDT Procedure Visit [facility] [address] [facility] [place] [address] Jere NikaGRIFFIN [address] [facility] [address] documented as of this encounter Procedures Procedure Name Priority Date/Time Associated Diagnosis Comments BACTERIAL VAGINOSIS PANEL Routine 02/04/2025 12:00 AM EDT documented in this encounter Results * (ABNORMAL) Bacterial Vaginosis (02/04/2025 12:00 AM EDT) TRICHOMONAS VAGINALIS DETECTION BY PCR NOT DETECTED Not Detect [facility] BACTERIAL VAGINOSIS DETECTION BY PCR POSITIVE(A) Negative [facility] Comment:The BV organism targ ets of the Xpert Xpress MVP test can becommensal in women; Xpert Xpress MVP positive results forbacterial vaginosis should be considered in conjunction withother clinical and patient information to determine thedisease status. Organisms that are not detected by the XpertXpress MVP test have also been reported to be associatedwith BV and aerobic vaginitis.The Xpert Xpress MVP test performance has not been evaluatedin patients under the age of 14. GABY GROUP DETECTION BY PCR NOT DETECTED Not Detect [facility] Gaby glab krusei PCR NOT DETECTED Not Detect [facility] 02/04/2025 02/04/2025 us Cindi Lopez NP LAB MICROBIOLOGY - GENERAL ALIVIA SINGER Final Result [facility] [address] [place] [address] [phone] documented in this encounter Visit Diagnoses Not on filedocumented in this encounter Additional Health Concerns Assessment Noted Time PHQ-9 Depression Total Score: 0 02/05/20 9:04 AM EDT documented as of this encounter Care Teams Broiler Manager Relationship Specialty Start Date End Date Cindi Lopez NP [address] [place] [address] PCP - General Family Medicine 02/03/25 documented as of this encounter
--- OUTSIDE RECORDS SUMMARY | 2025-02-09 17:47 | XMS_ITS | Encounter Summary ---
Author Organization [employer] Address [address] [facility] [place] [address] Care Team Providers Care Block Hand Name Role Phone Cindi Lopez NP Primary Care Provider [phone] Reason for Visit * Reason Onset Date Comments Lab Orders 02/09/2025 Encounter Details Date Type Department Care Team ([facility] st Contact Info) Description 02/09/2025 Telephone [facility] [address] [place] [address] Cindi Lopez NP [address] [place] [address] Lab Orders Social History Tobacco Use Types Packs/Day Years [...] AM EDT documented as of this encounter Miscellaneous Notes * Telephone Encounter - Ilsa Karimi MA - 02/09/2025 2:22 PM EDT T/C was made to the patient to come in per [facility] for Chlamydia/N. Gonorrhoeae RNA, TMA, Urogenitial (Order #[id number]) on 10/22/24. Collection was made today. documented in this encounter Plan of Treatment Upcoming Encounters Date Type Department Care Team (Late st Contact Info) Description 02/18/2025 2:00 PM EDT Procedure Visit [facility] [address] [place], [place] [phone] Nika Oquendo CNM [address] [place], [place] [phone] documented as of this encounter Visit Diagnoses Not on filedocumented in this encounter Additional Health Concerns Assessment Noted Time PHQ-9 Depression Total Score: 0 02/05/20 9:04 AM EDT documented as of this encounter Care Teams Block Hand Relationship Specialty Start Date End Date Cindi Lopez NP [address] [place] [address] PCP - General Family Medicine 02/03/25 documented as of this encounter
--- OUTSIDE RECORDS SUMMARY | 2025-02-09 17:47 | XMS_ITS | Encounter Summary ---
Author Organization [employer] Address [address] [facility] [address] [place] [address] Care Team Providers Care Marketing Assistant Retail Division Name Role Phone Cindi Lopez NP Primary Care Provider [phone] Encounter Details Date Type Department Care Team ([facility] st Contact Info) Description 02/05/2025 Results Follow-Up [facility] [address] [place] [address] Cindi Lopez NP [address] [place] [address] Lipid Panel, Standard, CBC auto differential, Hepatitis B Core Antibody, Total, Additional followed-up results: 6 Social History Tobacco Use Types Packs/Day Years [...] the past 12 months, has t he [employer], gas, oil or water company threatened to [...] encounter Miscellaneous Notes * Telephone Encounter - Chela Baker RN - 02/05/2025 4:19 PM EDT Tc to pt to let them know per PCP Please inform patient of lab results which are within acceptable range with exception of the following -Low BUN which is an indication of low protein intake. -Bad cholesterol slightly elevated and good cholesterol is slightly low. Please reinforce dietary and exercise requirement teaching. -Glucose levels are WNL and therefore does not explain her experience of dizziness that resolved with chocolate/soda intake. I recommend keeping keeping close record of these events. . Pt verbalized understanding and agrees with plan. Pt denies any further questions or concerns at this time. * Telephone Encounter - Chela Baker RN - 02/05/2025 4:19 PM EDT ----- Message from Cindi Lopez sent at 02/05/2025 12:50 PM EDT ----- Please inform patient of lab results which are within acceptable range with exception of the following -Low BUN which is an indication of low protein intake. -Bad cholesterol slightly elevated and good cholesterol is slightly low. Please reinforce dietary and exercise requirement teaching. -Glucose levels are WNL and therefore does not explain her experience of dizziness that resolved with chocolate/soda intake. I recommend keeping keeping close record of these events. Thanks ----- Message ----- From: Interface, Lab Results In Sent: 02/04/2025 11:48 AM EDT To: Cindi Lopez NP documented in this encounter Plan of Treatment Upcoming Encounters Date Type Department Care Team (Late st Contact Info) Description 02/18/2025 2:00 PM EDT Procedure Visit [facility] [address] [place] [address] Nika Oquendo CNM [address] [place] [address] documented as of this encounter Visit Diagnoses Not on filedocumented in this encounter Additional Health Concerns Assessment Noted Time PHQ-9 Depression Total Score: 0 02/05/20 9:04 AM EDT documented as of this encounter Care Teams Marketing Assistant Retail Division Relationship Specialty Start Date End Date Cindi Lopez NP [address] [place] [address] PCP - General Family Medicine 02/03/25 documented as of this encounter
--- OUTSIDE RECORDS SUMMARY | 2025-02-09 17:47 | XMS_ITS | Clinical Summary ---
Author Organization [employer] Address [address] [place] [address] Care Team Providers Care After School Teacher Name Role Phone Cindi Lopez NP Primary Care Provider [phone] Allergies No known active allergies Medications metroNIDAZOLE (Metrogel) 0.75 % vaginal gelIndications :Bacterial vaginosis Insert 1 Application. into the vagina at bedtime for 5 doses. One applicator in the vagina every night x 5 nights 70 g 02/06/20 25 025 Active Omeprazole 20 MG tablet delayed-releas e Take 20 mg by mouth 2 times daily. 60 tablet 2 07/03/19 24 025 Discontinued(Me d list cleanup (will not trigger notification to Pharmacy)) sucralfate (Carafate) 1 GM/10ML suspension TAKE 10 ML'S TWICE A DAY 07/05/19 24 025 Discontinued(Me d list cleanup (will not trigger notification to Pharmacy)) acetaminophen (Tylenol) 500 MG tablet Take 2 tablets (1,000 mg) by mouth every 6 (six) hours if needed for moderate pain or fever. 30 tablet 10/23/19 25 025 Discontinued(Me d list cleanup (will not trigger notification to Pharmacy)) ibuprofen 400 MG tablet Take 1 tablet (400 mg) by mouth every 6 (six) hours if needed for moderate pain or fever for up to 30 doses. 30 tablet 10/23/19 25 025 Discontinued(Me d list cleanup (will not trigger notification to Pharmacy)) Active Problems Problem Noted Date Diagnosed Date Alpha thalassemia silent carrier 02/04/2025 GERD (gastroesophageal reflux disease) Encounters Date Type Department Care Team Description 02/09/[address] [address] Cindi Lopez NP Lab Orders 02/06/2025 Orders Only [address] [address] Cindi Lopez NP Routine screening for STI (sexually transmitted infection) (Primary Dx); Vaginal discharge 02/05/[address] [address] Cindi Lopez NP TEST NOT PERFORM 02/05/2025 Results Follow-Up [address] [address] Cinid Lopez NP Lipid Panel, Standard, CBC auto differential, Hepatitis B Core Antibody, Total, Additional followed-up results: 6 02/05/2025 Results Follow-Up [address] [address] Cindi Lopez NP Bacterial Vaginosis 02/05/[address] [address] Cindi Lopez NP Results 02/04/2025 9:00 AM EDT Office Visit [address] [address] Cindi Lopez NP Encounter to establish care with new provider (Primary Dx); Vaginal discharge; Dizziness; Encounter for health-related screening; Routine screening for STI (sexually transmitted infection); Dietary counseling; Exercise counseling; Anxiety; Encounter for other general counseling or advice on contraception; External hemorrhoid 02/04/2025 Orders Only [address] [address] Cindi Lopez NP 02/04/2025 Travel 02/03/[address] [address] Cindi Lopez NP CHARTPREP 01/28/2025 Patient Outreach [facility] [address] [place] [address] Cindi Lopez NP Pre-visit Planning (SDOPH negative, Tobacco screening negative. ) 11/18/2024 Refill [facility] [address] [place] [phone] Jose Peoples MD from Last 3 Months Immunizations Immunization Administration Dates Next Due DTaP 01/20/2011,12/02/2008 DTaP, 5 pertussis antigens 07/13/2009 HPV 9-Valent 08/06/2014 HPV, Unspecified 10/06/2014 Hep B, Adolescent or Pediatric 01/20/2011,2009,12/02/2008 IPV 02/21/2011,07/13/2009,12/02/2008 Influenza injectable quadriv alent preservative free 02/21/2011 MMR 07/13/2009,12/02/2008 Meningococcal MCV4P [id number]-135 08/06/2014 Tdap 08/06/2014 Varicella 01/20/2011,12/02/2008 Family History Medical History Relation Name Comments Diabetes Mother Relation Name Status Comments Maternal Grandmother Mother Social History Tobacco Use Types Packs/Day Years [...] your housing situation today? I have tito claribel 01/28/[address] you li [...] Mass Index 29.51 02/04/2025 9:01 AM EDT Plan of Treatment Upcoming Encounters Date Type Department Care Team (Late st Contact Info) Description 02/18/2025 2:00 PM EDT Procedure Visit [facility] [address] [place] [address] Nika Oquendo CNM [address] [place] [address] Health Maintenance Due Date Last Done Comments HPV Vaccines (3 - 2-dose series) 02/05/2015 10/06/2014, 08/06/2014, 08/06/2014 Meningococcal B Vaccine (1 of 2 - Standard) 2018 Dental Oral Exam 09/23/2019 03/24/2019, 02/20/2018 Dental Prophylaxis 09/23/2019 03/24/2019, 02/20/2018 Dental X-Ray: Bitewings 03/25/2020 03/24/2019, 02/20 Dental X-Ray: Full Mouth 02/21/2021 02/20/2018 Pap Smear 10/18/2023 COVID-19 Vaccine ( season) 2024 Influenza Vaccine (#1) 2024 02/21/2011 Chlamydia and Gonorrhea Screening 10/22/2025 10/22/2024, 12/29/2022 Alcohol/Substance Use Screening 02/04/2026 02/04/2025 Depression Screening 02/04/2026 02/04/2025, 02/05/20 Disability Screening 02/04/2026 02/04/2025 Family Planning (PISQ) 02/04/2026 02/04/2025 SDOH Screening 02/04/2026 02/04/2025 Tobacco Screening 02/04/2026 02/04/2025 DTaP/Tdap/Td Vaccines (6 - Td or Tdap) [...] on patient's age to complete this topic HIV Screening Completed 02/04/2025, 10/22/2024 Hepatitis C Screening Completed 02/04/2025, 025 HIB Vaccines Aged Out No longer eligi [...] Procedure Name Priority Date/Time Associated Diagnosis Comments BASIC METABOLIC PANEL Routine 02/04/2025 10:46 AM EDT Dizziness SYPHILIS SCREEN Routine 02/04/2025 10:46 AM EDT Routine screening for STI (sexually transmitted infection) HEPATITIS C AB W/REFL TO HCV RNA, [...] DIFFERENTIAL Routine 02/04/2025 10:46 AM EDT Dizziness LIPID PANEL, STANDARD Routine 02/04/2025 10:46 AM EDT Encounter for health-related screening BACTERIAL VAGINOSIS PANEL Routine 02/04/2025 12:00 AM EDT CHLAMYDIA/N. GONORRHOEAE RNA, TMA, THROAT Routine 10/22/2024 11:27 AM EDT PROPHYLAXIS - ADULT Routine 03/24/2019 1 2:00 AM EST BITEWINGS - 4 RADIOGRAPHIC IMAGES Routine 03/24/2019 12:00 AM EST PERIODIC ORAL EVALUATION - ESTABLISHED PATIENT Routine 03/24/2019 12:00 AM EST INTRAORAL - COMPLETE SERIES OF RADIOGRAPHIC IMAGES Routine 02/20/2018 12:00 AM EDT from Last 3 Months or Most Recently Relevant to Health Maintenance Results * Syphilis Screen (02/04/2025 10:46 AM EDT) Pathologist [facility] Syphilis Screen Nonreactive Nonreactive [facility] Blood Venous blood specimen / Unknown 02/04/2025 10:46 AM EDT 02/04/2025 11:24 AM EDT Cindi Lopez TECHNICAL PROJECT COORDINATOR LAB BLOOD ORDERABLES Final Resu lt [facility] [address] [place], [place] [phone] * (ABNORMAL) CBC auto differential (02/04/2025 10:46 AM EDT) Pathologist [facility] White Blood Count 6.5 4.8 - 10.8 X10*3/uL [facility] Red Blood Count 5.24 4.20 - 5.50 X10*6/uL [facility] Hemoglobin 13.7 12.0 - 16.0 g/dl [facility] Hematocrit 42.9 37.0 - 47.0 % [facility] Mean Corpuscular Volume 81.9 80.0 - 98.0 fL [facility] Mean Corpuscular Hemoglobin 26.1(L) 27.0 - 33.0 pg [facility] Mean Corpuscular HGB Conc 31.9 31.0 - 35.0 g/dl [facility] Red Cell Distribution Width 14.8 11.0 - 16.0 % [facility] Platelet Count 250 160 - 400 X10*3/uL [facility] Mean Platelet Volume 11.7 9.4 - 12.3 fL [facility] Neutrophils Percent Auto 46.0 45 - 73 % [facility] Imm Gran Pct Auto 0.3 0.0 - 0.4 % [facility] Lymphocytes Percent Auto 42.8(H) 20 - 40 % [facility] Monocytes Percent Auto 6.9 2 - 11 % [facility] Eosinophils Percent Auto 3.2 0 - 4 % [facility] Basophils Percent Auto 0.8 0 - 2 % [facility] NRBC Pct Auto 0.0 0.0 - 0.2 /100WBC [facility] Neutrophils Absolute Auto 3.0 2.0 - 8.3 x10*3/uL [facility] Imm Gran Abs Auto 0.02 0.00 - 0.03 X10*3/uL [facility] Lymphocytes Absolute Auto 2.8 1.2 - 4.9 X10*3/uL [facility] Monocytes Absolute Auto 0.5 0.1 - 1.2 X10*3/uL [facility] Eosinophils Absolute Auto 0.2 0.0 - 0.4 X10*3/uL [facility] Basophils Absolute Auto 0.1 0.0 - 0.2 X10*3/uL [facility] NRBC Abs Auto 0.000 0.0 - 0.012 X10*3/uL [facility] Blood Venous blood specimen / Unknown 02/04/2025 10:46 AM EDT 02/04/2025 11:24 AM EDT us Cindi Lopez TECHNICAL PROJECT COORDINATOR LAB BLOOD ORDERABLES Final Resu lt [facility] [address] [place] [phone] * Hepatitis C Antibody with Reflex to HCV, RNA, Quantitative, Real-Time PCR (02/04/2025 10:46 AM EDT) Hepatitis C Antibody Nonreactive Nonreactive [facility] Comment:Antibodies to HCV no t detected; does not exclude early acuteHCV infection. Blood Venous blood specimen / Unknown 02/04/2025 10:46 AM EDT 02/04/2025 11:24 AM EDT us Cindi Lopez TECHNICAL PROJECT COORDINATOR LAB BLOOD ORDERABLES Final Resu lt Performing Organization Address [facility]/ZIP Co de Phone Number [facility] [address] [place] [phone] * Hepatitis B surface antigen, EIA (02/04/2025 10:46 AM EDT) Hepatitis B Surface Ag Negative Negative [facility] Blood Venous blood specimen / Unknown 02/04/2025 10:46 AM EDT 02/04/2025 11:24 AM EDT us Cindi Lopez TECHNICAL PROJECT COORDINATOR LAB BLOOD ORDERABLES Final Resu lt Performing Organization Address [facility] Co de Phone Number [facility] [address] [place] [phone] * Hepatitis B Core Antibody, Total (02/04/2025 10:46 AM EDT) Hepatitis B Core Antibody Nonreactive Nonreactive [facility] Blood Venous blood specimen / Unknown 02/04/2025 10:46 AM EDT 02/04/2025 11:24 AM EDT Cindi Boyd TECHNICAL PROJECT COORDINATOR LAB BLOOD ORDERABLES Final Resu lt Performing Organization Address [facility] Co de Phone Number [facility] [address] [place] [phone] * HIV-1/2 Antigen and Antibodies, Fourth Generation, with Reflexes (02/04/2025 10:46 AM EDT) HIV AB/AG Nonreactive Nonreactive [facility] Comment:HIV-1 p24 Ag and/or HIV-1/HIV-2 Ab not detected.A test result that is nonreactive does not exclude thepossibility of exposure to or infection with HIV-1 and/orHIV-2. Nonreactive results in this assay for individualswith prior exposure to HIV-1 and/or HIV-2 may be due toantigen and antibody levels that are below the limit ofdetection of this assay.The Guang Lian Shi DainiAutoESL HIV Ag/Ab Combo assay result andsupplemental assay results should be interpreted inconjunction with the patient's clinical presentation,history and other laboratory results. If the results areinconsistent with clinical evidence, additional testing issuggested to confirm the result. Blood Venous blood specimen / Unknown 02/04/2025 10:46 AM EDT 02/04/2025 11:24 AM EDT [facility] TECHNICAL PROJECT COORDINATOR LAB BLOOD ORDERABLES Final Resu lt Performing Organization Address [facility] Co de Phone Number [facility] [address] [place] [phone] * Hepatitis B Surface Antibody, Qualitative (02/04/2025 10:46 AM EDT) ~Hepatitis B Surface Antibody REACTIVE Nonreactive [facility] Comment:REACTIVE: > 11.99 mI U/mL Blood Venous blood specimen / Unknown 02/04/2025 10:46 AM EDT 02/04/2025 11:24 AM EDT Critical access hospital LAB BLOOD ORDERABLES Final Resu lt Performing Organization Address [facility] Co de Phone Number [facility] [address] [place] [phone] * (ABNORMAL) Lipid Panel, Standard (02/04/2025 10:46 AM EDT) Triglycerides 49 <150 mg/dL [facility] Comment:Desirable Triglyceri de: less than 150 mg/dLBorderline High Triglyceride 150-199 mg/dLHigh Triglyceride: 200-499 mg/dLVery High Triglyceride: greater than or equal to 5OO mg/dL Cholesterol 159 <200 mg/dL [facility] Comment:Desirable Cholestero l: less than 200 mg/dLBorderline High Cholesterol: 200-239 mg/dLHigh Cholesterol: greater than 239 mg/dL LDL Cholesterol Calculated 112(H) <100 mg/dL [facility] Comment:Desirable LDL: less than 100 mg/dLNear Optimal/Above Optimal LDL: 110- 129 mg/dLBorderline High LDL: 130-159 mg/dLHigh LDL: 160-189 mg/dLVery High LDL: greater than or equal to 190 mg/dL HDL Cholesterol 38(L) >40 mg/dL [facility] Comment:Desirable HDL: great er than 40 mg/dL Note: This HDL assay may give artificially low results in patients with liver disease. Blood Venous blood specimen / Unknown 02/04/2025 10:46 AM EDT 02/04/2025 11:24 AM EDT Cindi Lopez TECHNICAL PROJECT COORDINATOR LAB BLOOD ORDERABLES Final Resu lt [facility] [address] [place] [phone] * (ABNORMAL) Basic Metabolic Panel (02/04/2025 10:46 AM EDT) Sodium 142 135 - 145 mmol/L [facility] Potassium 4.3 3.3 - 5.1 mmol/L [facility] Chloride 108 96 - 108 mmol/L [facility] Carbon Dioxide 28 22 - 29 mmol/L [facility] Anion Gap 10(L) 12 - 20 [facility] Urea Nitrogen (BUN) 4(L) 9 - 16 mg/dL [facility] Creatinine, Serum 0.63 0.5 - 1.4 mg/dL [facility] Estimated Glomerular Filt Rate >60 [facility] Comment:Chronic Kidney Disea se: Estimated GFR < 60 mL/min/1.25m2Pyfvoi Kidney Disease: Estimated GFR < 15 mL/min/1.73m2 Glucose 82 60 - 115 mg/dL [facility] Calcium 9.1 8.4 - 10.2 mg/dL [facility] Blood Venous blood specimen / Unknown 02/04/2025 10:46 AM EDT 02/04/2025 11:24 AM EDT Critical access hospital LAB BLOOD ORDERABLES Final Resu lt Performing Organization Address [facility]/ZIP Co de Phone Number [facility] [address] [place] [phone] * (ABNORMAL) Bacterial Vaginosis (02/04/2025 12:00 AM EDT) TRICHOMONAS VAGINALIS DETECTION BY PCR NOT DETECTED Not Detect [facility] BACTERIAL VAGINOSIS DETECTION BY PCR POSITIVE(A) Negative [facility] Comment:The BV organism targ ets of [...] DETECTION BY PCR NOT DETECTED Not Detect [facility] Gaby glab krusei PCR NOT DETECTED Not Detect [facility] 02/04/2025 02/04/2025 Critical access hospital LAB MICROBIOLOGY - GENERAL ORDE RABLES Final Result Performing Organization Address [facility]/[employer] de Phone Number [facility] [address] [place] [phone] * Chlamydia/N. Gonorrhoeae RNA, TMA, Throat (10/22/2024 11:27 AM EDT) C. Trachomatis RNA TMA, Throat NOT DETECTED [facility] N. gonorrhoeae RNA TMA, Throat NOT DETECTED [facility] Comment:REFERENCE RANGE: NOT DETECTEDMethodology: Puddler Helper Mediated Amplification (TMA) to detect RNA.The analytical performance characteristics of this assayhave been determined by [facility]. The modificationshave not been cleared or approved by the FDA. This assay hasbeen validated pursuant to the CLIA regulations and is usedfor clinical purposes.For additional information, please refer tohttps://education.Bioniz/faq/LEF053(This link is being provided for informational/educationalpurposes only.)THIS TEST WAS PERFORMED AT:[employer] [id number] [place] [id number] RODRIGES MD,PHD,RICCO 10/22/2024 11:2 7 AM EDT 10/22/2024 1:10 PM EDT Jose Peoples MD LAB MICROBIOLOGY - GENERAL ORDER CHRIS Final Result [facility] [address] [place] [phone] from Last 3 Months or Most Recently Relevant to Health Maintenance Insurance [facility] STANDARD MEDICARE [place] STAND ADULT Care Teams After School Teacher Relationship Specialty Start Date End Date Cindi Lopez NP [address] [place] [address] [place] [address] PCP - General Family Medicine 02/03/25
--- OUTSIDE RECORDS SUMMARY | 2025-02-09 17:47 | XMS_ITS | Encounter Summary ---
Author Organization [employer] Address [address] [facility] [address] [place] [address] Care Team Providers Care Hydrogenation Still Operator Name Role Phone Cindi Lopez NP Primary Care Provider [phone] Reason for Visit * Reason Comments Med Refill Encounter Details Date Type Department Care Team (Late Contact Info) Description 11/18/2024 Refill [facility] [address] [place] [address] Jose Peoples MD [address] [place] [address] Social History Tobacco Use Types Packs/Day Years [...] Description 02/18/2025 2:00 PM EDT Procedure Visit [facility] [address] [place] [address] Nika Oquendo CNM [address] [place] [address] documented as of this encounter Visit Diagnoses Not on filedocumented in this encounter Care Teams Hydrogenation Still Operator Relationship Specialty Start Date End Date Cindi Lopez NP [address] [place] [address] PCP - General Family Medicine 02/03/25 documented as of this encounter
--- OUTSIDE RECORDS SUMMARY | 2025-02-09 17:47 | XMS_ITS | Encounter Summary ---
Author Organization [employer] Address [address] [facility] [address] [place] [address] Care Team Providers Care Test Data Developer Name Role Phone Cindi Lopez NP Primary Care Provider [phone] Encounter Details Date Type Department Care Team ([facility] st Contact Info) Description 02/05/2025 Results Follow-Up [facility] [address] [place] [address] Cindi Lopez NP [address] [place] [address] Bacterial Vaginosis Social History Tobacco Use Types Packs/Day Years [...] encounter Miscellaneous Notes * Telephone Encounter - Berenice Chaidez RN - 02/05/2025 2:01 PM EDT T/C to pt. Advised of message from PCP re: + BV and treatment plan. Pt verbalized understanding. Ptagrees to call as needed if she experiences any med reaction or symptoms persist beyond duration oftreatment. * Telephone Encounter - Berenice Chaidez RN - 02/05/2025 1:58 PM EDT ----- Message from Cindi Lopez sent at 02/05/2025 12:43 PM EDT ----- Please inform patient BV (an overgrowth of normal vaginal bacteria) noted on vaginal swab. No yeastor trichomonas notes. I have sent intravaginal treatment to pharmacy on file. Thanks ----- Message ----- From: Interface, Lab Results In Sent: 02/05/2025 5:40 AM EDT To: Cindi Lopez NP documented in this encounter Plan of Treatment Upcoming Encounters Date Type Department Care Team (Late st Contact Info) Description 02/18/2025 2:00 PM EDT Procedure Visit [facility] [address] [place] [address] Nika Oquendo CNM [address] [place] [address] documented as of this encounter Visit Diagnoses Diagnosis Bacterial vaginosis- Primary Unspecified vaginitis and vulvovaginitis documented in this encounter Additional Health Concerns Assessment Noted Time PHQ-9 Depression Total Score: 0 02/05/20 9:04 AM EDT documented as of this encounter Care Teams Test Data Developer Relationship Specialty Start Date End Date Cindi Lopez NP [address] [place] [address] PCP - General Family Medicine 02/03/25 documented as of this encounter
--- OUTSIDE RECORDS SUMMARY | 2025-02-09 17:47 | XMS_ITS | Encounter Summary ---
Author Organization [employer] Address [address] [facility] [address] [facility] [address] [address] [place] [address] Care Team Providers Care Analytical Manager Name Role Phone Cindi Lopez NP Primary Care Provider [phone] Reason for Visit * Reason Onset Date Comments Results 02/05/2025 Encounter Details Date Type Department Care Team ([facility] st Contact Info) Description 02/05/2025 Telephone [facility] [address] [place] [address] Cindi Lopez NP [address] [place] [address] Results Social History Tobacco Use Types Packs/Day Years [...] Telephone Encounter - Ilsa Karimi MA - 02/05/2025 11:49 AM EDT construction project assistant faxed a cover sheet letter to [facility] Medical record to request medical record and any recent PAP examination results. Waiting for request . [phone])[phone] (F) [phone] * Telephone Encounter - Ilsa aKrimi MA - 02/05/2025 11:49 AM EDT ----- Message from Cindi Lopez sent at 02/04/2025 1:24 PM EDT ----- Please request records for this patient from [facility] and update Pap tracker. Thank you documented in this encounter Plan of Treatment Upcoming Encounters Date Type Department Care Team (Late st Contact Info) Description 02/18/2025 2:00 PM EDT Procedure Visit [facility] [address] [place] [address] Nika Oquendo CNM [address] [place] [address] documented as of this encounter Visit Diagnoses Not on filedocumented in this encounter Additional Health Concerns Assessment Noted Time PHQ-9 Depression Total Score: 0 02/05/20 9:04 AM EDT documented as of this encounter Care Teams Analytical Manager Relationship Specialty Start Date End Date Cindi Lopez NP [address] [place] [address] PCP - General Family Medicine 02/03/25 documented as of this encounter
--- OUTSIDE RECORDS SUMMARY | 2025-02-09 17:47 | XMS_ITS | Encounter Summary ---
Author Organization [employer] Address [address] [facility] [address] [place] [address] Care Team Providers Care Infantry Indirect Fire Crewmember Name Role Phone Cindi Lopez NP Primary Care Provider [phone] Reason for Visit * Reason Onset Date Comments TEST NOT PERFORM 02/05/2025 Encounter Details Date Type Department Care Team (Late st Contact Info) Description 02/05/2025 Telephone [facility] [address] [place] [address] Cindi Lopez NP [address] [place] [address] TEST NOT PERFORM Social History Tobacco Use Types Packs/Day Years [...] encounter Miscellaneous Notes * Telephone Encounter - Cindi Lopez NP - 02/05/2025 1:28 PM EDT Jamie, please inform patient of above message and offer repeat testing if she would like. Thanks * Telephone Encounter - Pedro Rebolledo [place] - 02/05/2025 12:59 PM EDT Incoming call from [facility] Lab to notify that CT/NG rectal was not perform due to specimen was in the wrong collection tube. Lab received pink top and for that test is the white aptima. Please notify your [place] if a re-collection is needed. documented in this encounter Plan of Treatment Upcoming Encounters Date Type Department Care Team (Late st Contact Info) Description 02/18/2025 2:00 PM EDT Procedure Visit [facility] [address] [place] [address] Nika Oquendo CNM [address] [place] [address] documented as of this encounter Visit Diagnoses Not on filedocumented in this encounter Additional Health Concerns Assessment Noted Time PHQ-9 Depression Total Score: 0 02/05/20 9:04 AM EDT documented as of this encounter Care Teams Infantry Indirect Fire Crewmember Relationship Specialty Start Date End Date Cindi Lopez NP [address] [place] [address] PCP - General Family Medicine 02/03/25 documented as of this encounter
[2025-02-10 06:09] LABS: CT PCR NOT DETECTED (Not Detect.); NG PCR NOT DETECTED (Not Detect.)
== END 2025-02-09 17:46 | disposition home or self-care (01) ==
LOC: HO.HHCLNP 17:45
PROVIDERS: Visit Provider Emergency Medicine
DX: Z11.3 Encounter for screening for infections with a predominantly sexual mode of transmission (principal); Z20.2 Contact with and (suspected) exposure to infections with a predominantly sexual mode of transmission
CPT/HCPCS: 87491; 87591